=== PATIENT | male | born 1965 | race Caucasian/White ===

== ENCOUNTER 2025-02-01 14:57 | Emergency (ER) | payer SELFPAY ==
[2025-02-01 15:05] VITALS: BP 175/81; PULSE 65; RESP 20; TEMP 36.8; O2SAT 93
[2025-02-01 15:08] VITALS: BP 175/81; PULSE 65; RESP 20; TEMP 36.8; O2SAT 93
--- NOTE | 2025-02-01 15:15 | DI.CT_ITS ---
Exam(s) CT RENAL COLIC WO EXAM: CT RENAL COLIC WO CLINICAL HISTORY: left flank pain. TECHNIQUE: Imaging Protocol: Axial computed tomography images with coronal and sagittal reformatted images were created and reviewed CONTRAST MATERIAL: Intravenous: none Oral: None COMPARISON: No exams were available for comparison FINDINGS: VISUALIZED LUNG BASES: No infiltrates nor pleural effusions.. ABDOMEN: There is no ascites. There is anterior abdominal wall midline umbilical fat only containing hernia w hich measures 3.5 cm wide by 3.6 cm AP by 4.5 cm craniocaudal. The hernia sac does not contain bowel loops nor fluid. There is no bowel obstruction. There is mild subcutaneous fat streaking around th e otherwise unremarkable hernia sac. LIVER: There are no obvious significant focal hepatic lesions evident of this noninfused study. GALLBLADDER/BILIARY: No obvious gallbladder pathology. CBD is not dilated. PANCREAS: No evidence of pancreatic mass nor dilatation of the pancreatic duct. SPLEEN: Spleen is not enlarged. No obvious intrasplenic lesions. ADRENALS: There are no significant adrenal masses. KIDNEYS:Right kidney unremarkable. There is mild hydronephrosis and hydroureter of the left kidney w ith the left ureter dilated to 9 mm. The culprit calculus is in the left pelvic ureter at level wher e it crosses the iliac vessels, this calculus measuring 5-6 mm size and there is streaking around the ureter at this level. The ureter below this level on the left side is collapsed and there are no ra diopaque calculi seen in the nondistended urinary bladder. Prostate and seminal vesicles appear unre markable. Right ureter unremarkable. ABDOMINAL AORTA: Abdominal aorta is not enlarged. LYMPH NODES: There is no retroperitoneal nor paraaortic adenopathy. ABDOMINAL WALL: Umbilical hernia as described above. GI: There is no evidence of bowel obstruction, free air, nor abscess. PELVIS: LYMPH NODES: There is no intrapelvic nor inguinal adenopathy. GI: No evidence of appendicitis.No evidence of sigmoid diverticulitis. URINARY BLADDER: No calculi nor obvious masses evident REPRODUCTIVE: Prostate size normal. Seminal vesicles unremarkable. OSSEOUS: No significant osseous lesions. IMPRESSION: 1. There is an obstructing calculus in the left pelvic ureter which measures 5-6 mm. There is dilata tion left ureter above this level (diameter of 9 mm). 2. No remaining radiopaque calculi in the kidneys and there are no radiopaque calculi in the nondiste nded urinary bladder. 3. Anterior abdominal wall fat only containing umbilical hernia as described above. Report called by myself to ER physician 02/01/2025 at 4:20 p.m. RADIATION DOSE DELIVERED: 1,847.4mGy.cm Total DLP DATA REPOSITORY: All CT scans at this facility are submitted to the National Radiology Data Registry (NRDR) Dose Index Registry (DIR) with the [employer] (ACR). RADIATION OPTIMIZATION: All CT scans at this facility use at least one of these dose optimization te chniques: automated exposure control; mA and/or kV adjustment per patient size (includes targeted exa ms where dose is matched to clinical indication); or iterative reconstruction.
--- NOTE | 2025-02-01 15:18 | ED.GENADUL_ITS ---
Discharge Plan Disposition Patient Disposition: Home Condition: Stable Discharge Details Clinical Impression: Kidney stone Primary Care Provider: Gregorio Cruz ED Provider: Sung Morales Home Meds and New Rx's Prescriptions: New ondansetron 4 mg tablet,disintegrating 4 mg PO Q8H PRN (Reason: nausea and vomiting) Qty: 30 0RF tamsulosin 0.4 mg capsule 0.4 mg PO DAILY Qty: 13 0RF Rx Instructions: take one daily until you pass the kidney stone Continued amlodipine 10 MG tablet 10 mg PO DAILY Patient Comments: been out of meds for 2 months lisinopril 40 MG tablet 40 mg PO DAILY Patient Comments: been out of meds for 2 months Discharge Instructions Additional Instructions: You have a 6 mm kidney stone. You can take 1000 mg of acetaminophen and 600 mg of ibuprofen every 6 hours as needed. You should be contacted with an appointment for follow-up for urology. If you feel more ill, have persistent vomiting despite ondansetron or high fevers return to the emergency department for reevaluation Referrals: Gentry Brower MD [ [facility] STAFF PHYSICIAN] - [facility] General Mode of arrival: ambulatory . Date/Time Provider Initiated Documentation: 02/01/25 15:00 . Limitations to Documentation: no limitations . Information obtained by: patient . History of Present Illness 59 year old M presents to the emergency department with the chief complaint of left groin/flank pain, described as moderate, Patient started experiencing this hour(s) (4) and it has been constant. No relieving factors improve symptom(s), No exacerbating factors reported . Patient notes denies chest pain, fever/chills and shortness of breath. Patient did receive the following treatments prior to arrival, none Related Data Home Medications ?Medication ?Instructions ?Recorded ?Confirmed amlodipine 10 mg tablet 10 mg PO DAILY 01/19/16 02/01/25 lisinopril 40 mg tablet 40 mg PO DAILY 01/19/16 02/01/25 ondansetron 4 mg disintegrating 4 mg PO Q8H PRN nausea and 02/01/25 tablet vomiting #30 tabs tamsulosin 0.4 mg capsule 0.4 mg PO DAILY #13 caps 02/01/25 Previous Rx's ?Medication ?Instructions ?Recorded ondansetron 4 mg disintegrating 4 mg PO Q8H PRN nausea and 02/01/25 tablet vomiting #30 tabs tamsulosin 0.4 mg capsule 0.4 mg PO DAILY #13 caps 02/01/25 Allergies Allergy/AdvReac Type Severity Reaction Status Date / Time No Known Allergies Allergy Unverified 02/01/25 15:09 General Stated Complaint: FlankPain SAILAJA: 3 Review of Systems All systems reviewed & are unremarkable except as noted in HPI and below Constitutional Constitutional: Denies chills, Denies fever(s) and Denies weakness Cardiovascular Cardiovascular: Denies chest pain and Denies dyspnea Respiratory Respiratory: Denies cough and Denies dyspnea Gastrointestinal Gastrointestinal: Denies abdominal pain, Reports nausea and Denies vomiting Integumentary/Breasts Skin/Breast: Denies rash Neurologic Neurologic: Denies weakness Exam Const General: no acute distress Orientation: alert HENMT Head: normal to inspection Ears: external ears normal General nose exam: external nose normal Mouth: moist mucous membranes Eyes General: appearance normal, both eyes and all related structures Neck Neck: normal visual inspection Resp Effort & Inspection: normal respiratory effort and able to speak in complete sentences Cardio Jugular venous pressure: no JVD Rate: regular rate Heart Sounds: no murmurs GI Palpation: soft and nontender Back/Spine/Pelvis Back: No CVA tenderness Skin General skin exam: no rashes or lesions noted Neuro General: patient alert and patient oriented x3 Extrem General: normal to inspection Psych Mental Status: mental status grossly normal Course Vital Signs Vital signs: Vital Signs Temperature 36.8 C 02/01/25 15:05 Pulse 65 02/01/25 15:05 Respiratory Rate 20 02/01/25 15:05 Blood Pressure 175/81 H 02/01/25 15:05 Pulse Oximetry 93 02/01/25 15:05 Temperature 36.8 C 02/01/25 15:08 Pulse 65 02/01/25 15:08 Respiratory Rate 20 02/01/25 15:08 Blood Pressure 175/81 H 02/01/25 15:08 Blood Pressure Position Sitting 02/01/25 15:08 Pulse Oximetry 93 02/01/25 15:08 Oxygen Delivery Method Room Air 02/01/25 15:08 Oxygen Flow Rate 0 02/01/25 15:08 Medical Decision Making 59-year-old male with a history of hypertension and states he had a kidney stone over 10 years ago comes in with acute onset left lower back and left groin pain starting today. He denies any vomiting. Does have nausea. No fevers or chest pain. He is stable on arrival, he localizes the pain to the left lower back, also left groin without any abdominal tenderness or CVA tenderness. Given acute onset of pain I suspect a kidney stone, will check a CBC, CMP, lipase and CT renal colic and reassess. Patient stable states his pain is gone after Toradol. He does have a 5 to 6 mm stone in the mid ureter with some hydronephrosis. Has no signs of infection. Given he has no pain now and is well-appearing I feel he is stable for discharge and follow-up with urology as an outpatient. Return precautions given Differential Diagnosis Differential Diagnosis: Kidney stone, muscle spasm Lab Data Lab results reviewed: Yes I reviewed the patient's lab results. Quality:[facility] Health Related Social Needs: No Data to Display [facility] All Active Problems (Updated 02/01/25 @ 16:53 by Sung Morales MD) Kidney stone (Chronic) Social History Smoking/Tobacco Use Status: Never Smoking risk assessment performed?: Yes Drug use: Never PAWSS Have you Been Recently Intoxicated or Drunk Within the Last 30 days?: No Have you Ever Experienced Previous Episodes of Alcohol Withdrawal?: No Have you ever Experienced Withdrawal Seizures?: No Have you ever Experienced Delirium Tremens(DT)s?: No Have you ever undergone Alcohol Rehabilitation Treatment (i.e, inpt ot outpatient treatment programs)?: No Have you ever Experienced Blackouts?: No Have you ever Combined Alcohol with other Downers within the last 90 days?: No Have you ever Combined Alcohol with any other Substance of Abuse during the last 90 days?: No Positive Blood Alcohol level on Presentation? [PCS.BAL]: No Evidence of Increased Autonomic Activity (i.e. HR>120, tremor, sweating, agitation, nausea)?: No Result: 0
[2025-02-01 15:21] LABS: Bilirubin Negative (Negative); Blood Large (Negative); Clarity Clear (Clear); Glucose Negative (Negative); Ketones Negative (Negative); Leukocyte Esterase Negative (Negative); Nitrite Negative (Negative); Urobilinogen 0.2 mg/dL (Up to 0.2); pH 6.5 (5-8)
[2025-02-01] MEDS: Ketorolac 15 MG/ML VIAL IVP (15:30)
[2025-02-01] MEDS: Ondansetron 4 MG/2 ML VIAL IVP (15:30)
[2025-02-01] MEDS: Normal Saline Flush 10 ML SYR IVP (15:31)
[2025-02-01 15:32] LABS: Abs Immature Grans 0.05 10^3/uL (0.0-0.06); Absolute Basophil Count 0.03 10^3/uL (0.0-0.2); Absolute Eosinophil Count 0.19 10^3/uL (0.0-0.7); Absolute Lymphocyte Count 1.05 10^3/uL (1.2-3.4); Absolute Monocyte Count 0.84 10^3/uL (0.1-0.8); Absolute Neutrophil Count 7.84 10^3/uL (1.2-6.7); Basophils % 0.3 %; Eosinophils % 1.9 %; HCT 44.4 % (40.0-50.0); HGB 14.7 g/dL (13.5-17.5); Immature Grans % 0.5 %; Lymphocytes % 10.5 %; MCH 29.3 pg (27.0-33.0); MCHC 33.1 % (32.0-36.0); MCV 88 fL (80-95); Monocytes % 8.4 %; Neutrophils % 78.4 %; Platelet Count 240 10^3/uL (130-400); RBC 5.02 10^6/uL (4.36-5.78); RDW 13.1 % (11.8-14.1); RDW-SD 42.2 fL
[2025-02-01 15:32] LABS: Bacteria Negative HPF (Negative); C & S Indicated? No; Casts Negative LPF (Negative); Crystals Negative HPF (Negative); Epithelial Cells Rare HPF (Negative); Mucus Trace (Negative); RBC >50 HPF (0-2); WBC 0-2 HPF (0-5)
[2025-02-01 15:54] LABS: ALT 23 U/L (16-63); AST 11 U/L (15-37); Albumin 3.7 g/dL (3.4-5.0); Alkaline Phosphatase 102 U/L (46-116); Anion Gap 6.8 mmol/L (3-11); BUN 25 mg/dL (7-18); Bilirubin, Total 0.4 mg/dL (0.2-1.0); CO2 36.2 mmol/L (21.0-32.0); CREATININE 1.2 mg/dL (0.70-1.30); Calcium 9.8 mg/dL (8.5-10.1); Chloride 102 mmol/L (98-107); Glucose 159 mg/dL (74-106); Lipase 28 U/L (<78); Magnesium 1.8 mg/dL; Potassium 4.3 mmol/L (3.5-5.1); Sodium 145 mmol/L (136-145); Total Protein 7.6 g/dL (6.4-8.2)
[2025-02-01] MEDS: MORPHine IR 15 MG TAB, 4 TABS/BTL PO (17:10)
[2025-02-01] MEDS: Tamsulosin 0.4 MG CAPCR PO (17:10)
[2025-02-01] MEDS: Ondansetron O.D.T. 4 MG TABEF, 3 TABS/BTL PO (17:11)
== END 2025-02-01 17:23 | disposition home or self-care (01) ==
PROVIDERS: Emergency Provider Emergency Medicine; PCP General Practice
DX: N13.2 Hydronephrosis with renal and ureteral calculous obstruction (principal)
CPT/HCPCS: 80053; 83690; 96374; 96375; 99284; 74176; 81003; 81015; 83735; 85025; J1885; J2405

== ENCOUNTER 2025-02-16 16:40 | Emergency (ER) | payer SELFPAY ==
[2025-02-16 16:44] VITALS: BP 167/83; PULSE 76; RESP 20; TEMP 35.9; O2SAT 97
[2025-02-16 16:46] VITALS: BP 167/83; PULSE 76; RESP 20; TEMP 35.9; O2SAT 97
[2025-02-16] MEDS: Ketorolac 15 MG/ML VIAL 10 MG IVP (17:20)
[2025-02-16] MEDS: Ondansetron 4 MG/2 ML VIAL IVP (17:20)
[2025-02-16] MEDS: Normal Saline 1,000 ML 1000 ML IV (17:21)
[2025-02-16 17:23] LABS: Bilirubin Small (Negative); Blood Moderate (Negative); Clarity Clear (Clear); Glucose 100 mg/dL (Negative); Ketones Trace mg/dL (Negative); Leukocyte Esterase Negative (Negative); Nitrite Negative (Negative); Specific Gravity >= 1.030 (1.005-1.025); Urobilinogen 0.2 mg/dL (Up to 0.2); pH 5.5 (5-8)
[2025-02-16 17:34] LABS: Bacteria Negative HPF (Negative); C & S Indicated? No; Crystals Few Calcium Oxalate HPF (Negative); Epithelial Cells Negative HPF (Negative); Mucus Heavy (Negative); RBC >50 HPF (0-2); WBC 0-2 HPF (0-5)
[2025-02-16 17:39] LABS: Abs Immature Grans 0.03 10^3/uL (0.0-0.06); Absolute Basophil Count 0.02 10^3/uL (0.0-0.2); Absolute Eosinophil Count 0.18 10^3/uL (0.0-0.7); Absolute Lymphocyte Count 0.88 10^3/uL (1.2-3.4); Absolute Monocyte Count 0.81 10^3/uL (0.1-0.8); Absolute Neutrophil Count 6.06 10^3/uL (1.2-6.7); Basophils % 0.3 %; Eosinophils % 2.3 %; HCT 42.1 % (40.0-50.0); HGB 13.8 g/dL (13.5-17.5); Immature Grans % 0.4 %; MCH 29.1 pg (27.0-33.0); MCHC 32.8 % (32.0-36.0); MCV 89 fL (80-95); MPV 9.2 fL (8.0-11.0); Monocytes % 10.2 %; Neutrophils % 75.8 %; Platelet Count 207 10^3/uL (130-400); RBC 4.74 10^6/uL (4.36-5.78); RDW 12.8 % (11.8-14.1); RDW-SD 41.9 fL; WBC 7.98 10^3/uL (4.4-10.8)
--- NOTE | 2025-02-16 17:39 | DI.CT_ITS ---
Exam(s) CT RENAL COLIC WO EXAM: CT RENAL COLIC WO CLINICAL HISTORY: left flank pain. TECHNIQUE: Imaging Protocol: Axial computed tomography images with coronal and sagittal reformatted images were created and reviewed. COMPARISON: CT CT RENAL COLIC WO from 02/01/2025 FINDINGS: Lung Bases: No acute findings. Liver: Normal density. No measurable mass. Gallbladder and biliary tract: No radiodense calculus. No biliary ductal dilation. Pancreas: No abnormal calcifications or inflammatory process. Spleen: Normal size. Kidneys: Normal size, contour and axis.Previously noted calculus in the distal left ureter has progr essed distally in the ureter, now approximately 2 cm above the ureterovesical junction. Stable amoun t of hydronephrosis, moderate. No additional calculi. No suspicious masses seen. Adrenal glands: No mass is seen. Lymph nodes: Within normal limits. Vasculature: Abdominal aorta non-dilated. Bladder: Nearly empty. No stones. No gross wall thickening. No evidence of mass. Bowel: No obstruction. No bowel wall thickening. Normal quantity of stool. Appendix appears normal. Peritoneal cavity: No ascites.No free air. No focal collection. No mesenteric inflammatory response. Reproductive organs: Within normal limits. Bones: Unremarkable for age. Soft Tissues: Fat containing umbilical hernia. Bilateral fat containing inguinal hernias. IMPRESSION: Distal progression of the previously noted 6 millimeter left ureteral calculus, now approximately 2 c m above the ureterovesical junction. Stable moderate left hydronephrosis. Findings called to Dr. Hooker of the emergency department. RADIATION DOSE DELIVERED: Total DLP Total DLP DATA REPOSITORY: All CT scans at this facility are submitted to the National Radiology Data Registry (NRDR) Dose Index Registry (DIR) with the [employer] (ACR). RADIATION OPTIMIZATION: All CT scans at this facility use at least one of these dose optimization te chniques: automated exposure control; mA and/or kV adjustment per patient size (includes targeted exa ms where dose is matched to clinical indication); or iterative reconstruction.
[2025-02-16 17:43] LABS: Anion Gap 6.3 mmol/L (3-11); BUN 21 mg/dL (7-18); CO2 33.7 mmol/L (21.0-32.0); CREATININE 1.2 mg/dL (0.70-1.30); Calcium 9.2 mg/dL (8.5-10.1); Chloride 102 mmol/L (98-107); Glucose 190 mg/dL (74-106); Potassium 3.4 mmol/L (3.5-5.1); Sodium 142 mmol/L (136-145)
[2025-02-16] MEDS: Tamsulosin 0.4 MG CAPCR PO (18:38)
[2025-02-16 18:47] VITALS: BP 172/85; PULSE 72; RESP 16; TEMP 36.6; O2SAT 96
--- NOTE | 2025-02-16 19:42 | ED.GENADUL_ITS ---
Discharge Plan Disposition Patient Disposition: Home Condition: Stable Discharge Details Clinical Impression: Kidney stone Primary Care Provider: Gregorio Cruz ED Provider: Mick Hooker Home Meds and New Rx's Prescriptions: New tamsulosin [Flomax] 0.4 mg capsule 0.4 mg PO DAILY Qty: 30 0RF No Action amlodipine 10 MG tablet 10 mg PO DAILY Patient Comments: been out of meds for 2 months lisinopril 40 MG tablet 40 mg PO DAILY Patient Comments: been out of meds for 2 months tamsulosin 0.4 mg capsule 0.4 mg PO DAILY Qty: 13 0RF Rx Instructions: take one daily until you pass the kidney stone Discharge Instructions Additional Instructions: You have a 6 mm kidney stone on the left and it has moved forward slightly, but at this point is very unlikely to pass on its own. Continue to drink lots of water, take Flomax daily. Use the Zofran as needed for nausea and take your pain medication provided at your last visit as needed for severe pain. The urology clinic will contact you to schedule outpatient management of the stone. Return to the emergency department with fever or severe pain, decreased urination, are not tolerating liquids by HPI General Date/Time Provider Initiated Documentation: 02/16/25 16:42 . Limitations to Documentation: no limitations . Information obtained by: patient . HPI Narrative: 59-year-old gentleman with past medical history of hypertension presents for evaluation of left flank pain. He reports that the pain is similar to last week when he was diagnosed with a left renal stone. He states that after leaving the hospital his pain had been very well-controlled. He was not needing the pain medication at home and had not needed the nausea medication either. He reports that on set of pain a few hours ago which has been severe. He took some Tylenol without much relief. He reports 8 out of 10 pain located on the left side radiating down into his groin. He has noted some hesitancy with urination today. Denies any fever, nausea or vomiting Related Data Home Medications ?Medication ?Instructions ?Recorded ?Confirmed amlodipine 10 mg tablet 10 mg PO DAILY 01/19/16 02/16/25 lisinopril 40 mg tablet 40 mg PO DAILY 01/19/16 02/16/25 tamsulosin 0.4 mg capsule 0.4 mg PO DAILY #13 caps 02/01/25 02/16/25 tamsulosin 0.4 mg capsule (Flomax) 0.4 mg PO DAILY #30 caps 02/16/25 Previous Rx's ?Medication ?Instructions ?Recorded tamsulosin 0.4 mg capsule 0.4 mg PO DAILY #13 caps 02/01/25 tamsulosin 0.4 mg capsule (Flomax) 0.4 mg PO DAILY #30 caps 02/16/25 Allergies Allergy/AdvReac Type Severity Reaction Status Date / Time No Known Allergies Allergy Unverified 02/16/25 16:48 General Stated Complaint: Urinary SAILAJA: 3 Exam Narrative Exam Narrative: Review of Systems: All systems reviewed & are unremarkable except as noted in HPI and below Well-developed, no acute distress NCAT PERRL, normal conjunctiva RRR Unlabored respiratory effort Nondistended abdomen soft nontender no CVA tenderness Course Vital Signs Vital signs: Vital Signs Temperature 35.9 C L 02/16/25 16:44 Pulse 76 02/16/25 16:44 Respiratory Rate 20 02/16/25 16:44 Blood Pressure 167/83 H 02/16/25 16:44 Pulse Oximetry 97 02/16/25 16:44 Temperature 36.6 C 02/16/25 18:47 Pulse 72 02/16/25 18:47 Respiratory Rate 16 02/16/25 18:47 Blood Pressure 172/85 H 02/16/25 18:47 Blood Pressure Position Sitting 02/16/25 16:46 Pulse Oximetry 96 02/16/25 18:47 Oxygen Delivery Method Room Air 02/16/25 16:46 Oxygen Flow Rate 0 02/16/25 16:46 Pain Level 4 02/16/25 18:47 Lab/Test Results Lab/Test Results: Laboratory Tests Range/Units 02/16/25 02/16/25 16:59 17:18 WBC (4.4-10.8) 10^3/uL 7.98 RBC (4.36-5.78) 10^6/uL 4.74 Hgb (13.5-17.5) g/dL 13.8 Hct (40.0-50.0) % 42.1 MCV (80-95) fL 89 MCH (27.0-33.0) pg 29.1 MCHC (32.0-36.0) % 32.8 RDW (11.8-14.1) % 12.8 Plt Count (130-400) 10^3/uL 207 MPV (8.0-11.0) fL 9.2 Immature Gran % % 0.4 Neutrophils % % 75.8 Lymphocytes % % 11.0 Monocytes % % 10.2 Eosinophils % % 2.3 Basophils % % 0.3 Nucleated RBC % (0.0-0.3) % 0.0 Absolute Neutrophils (1.2-6.7) 10^3/uL 6.06 Absolute Lymphocytes (1.2-3.4) 10^3/uL 0.88 L Absolute Monocytes (0.1-0.8) 10^3/uL 0.81 H Absolute Eosinophils (0.0-0.7) 10^3/uL 0.18 Absolute Basophils (0.0-0.2) 10^3/uL 0.02 Sodium (136-145) mmol/L 142 Potassium (3.5-5.1) mmol/L 3.4 L Chloride (98-107) mmol/L 102 Carbon Dioxide (21.0-32.0) mmol/L 33.7 H Anion Gap (3-11) mmol/L 6.3 BUN (7-18) mg/dL 21 H Creatinine (0.70-1.30) mg/dL 1.2 Est GFR (CKD-EPI 2020) (mL/min/1.73m2) 70.10 Glucose (74-106) mg/dL 190 H Calcium (8.5-10.1) mg/dL 9.2 Urine Color (Yellow) Yellow Urine Clarity (Clear) Clear Urine pH (5-8) 5.5 Ur Specific [place] (1.005-1.025) >= 1.030 H Urine Protein (Neg-Trace) mg/dL 30 H Urine Ketones (Negative) mg/dL Trace H Urine Blood (Negative) Moderate H Urine Nitrite (Negative) Negative Urine Bilirubin (Negative) Small H Urine Urobilinogen (Up to 0.2) mg/dL 0.2 Ur Leukocyte Esterase (Negative) Negative Urine RBC (0-2) HPF >50 H Urine WBC (0-5) HPF 0-2 Ur Epithelial Cells (Negative) HPF Negative Urine Crystals (Negative) HPF Few Calcium Oxalate Urine Bacteria (Negative) HPF Negative Urine Mucus (Negative) Heavy Ur Culture Indicated? No Urine Glucose (Negative) mg/dL 100 H Medical Decision Making Emergent evaluation of left flank pain. Patient had recent diagnosis of left renal stone. Symptoms have been well-controlled and patient has been drinking water at home, but the return of symptoms today is concerning for possible new stone versus obstruction, infection. Given significance of pain, an IV was placed he was given IV fluids, Toradol and Zofran. This completely resolved his pain symptoms. Renal function has not changed. Urinalysis does not reveal infection. A CT scan was obtained, discussed with the radiologist and the 6 mm stone is noted to have moved slightly, but still not reached the UVJ yet. Given the failure of significant progression, I reached out to urology and discussed the case with Dr. Brower. At this time given that the patient is not infected has normal renal function and pain is well-controlled, he is stable for discharge home and the patient will be closely followed up in urology clinic for outpatient management of the stone. Quality:[facility] Health Related Social Needs: No Data to Display PFSH All Active Problems (Updated 02/16/25 @ 18:08 by Mick Hooker MD) Kidney stone (Chronic) Social History Smoking/Tobacco Use Status: Never Smoking risk assessment performed?: Yes Drug use: Rarely Substance use type: marijuana PAWSS Have you Been Recently Intoxicated or Drunk Within the Last 30 days?: No Have you Ever Experienced Previous Episodes of Alcohol Withdrawal?: No Have you ever Experienced Withdrawal Seizures?: No Have you ever Experienced Delirium Tremens(DT)s?: No Have you ever undergone Alcohol Rehabilitation Treatment (i.e, inpt ot outpatient treatment programs)?: No Have you ever Experienced Blackouts?: No Have you ever Combined Alcohol with other Downers within the last 90 days?: No Have you ever Combined Alcohol with any other Substance of Abuse during the last 90 days?: No Positive Blood Alcohol level on Presentation? [PCS.BAL]: No Evidence of Increased Autonomic Activity (i.e. HR>120, tremor, sweating, agitation, nausea)?: No Result: 0
== END 2025-02-16 18:48 | disposition home or self-care (01) ==
PROVIDERS: Emergency Provider Emergency Medicine; PCP General Practice
DX: R10.2 Pelvic and perineal pain (principal); N13.2 Hydronephrosis with renal and ureteral calculous obstruction; I10 Essential (primary) hypertension; E78.5 Hyperlipidemia, unspecified
CPT/HCPCS: 80048; 96361; 96374; 96375; 99284; 74176; 81003; 81015; 85025; J1885; J2405

== ENCOUNTER 2025-02-17 07:09 | Emergency (ER) | payer SELFPAY ==
[2025-02-17 07:12] VITALS: BP 168/94; PULSE 69; RESP 12; TEMP 36.3; O2SAT 93
--- NOTE | 2025-02-17 07:17 | ED.GENADUL_ITS ---
Discharge Plan Disposition Patient Disposition: Home Discharge Details Clinical Impression: Ureterolithiasis, Hydronephrosis, left Primary Care Provider: Gregorio Cruz ED Provider: Milan Hanson Home Meds and New Rx's Prescriptions: New Ondansetron Odt, 3 Tabs/Btl [Zofran Odt, 3 Tabs/Btl] 4 mg PO DISPENSE Qty: 1 0RF Continued tamsulosin 0.4 mg capsule 0.4 mg PO DAILY Qty: 13 0RF Rx Instructions: take one daily until you pass the kidney stone hydrochlorothiazide 25 mg tablet 25 mg PO DAILY metformin 500 mg tablet extended release 24 hr 500 mg PO DAILY metoprolol succinate 100 mg tablet extended release 24 hr 100 mg PO DAILY atorvastatin 20 mg tablet 20 mg PO DAILY Discharge Instructions Instructions: Kidney Stone, Adult ED Additional Instructions: You are seen in the emergency department for your flank pain. Please ensure that you take your blood pressure medicines as directed. Please return to the emergency department if you develop nausea or vomiting that does not stop. Please take these medicines for nausea. You have been set up with an outpatient urological procedure in 2 days. For your pain please take medications as follows: 1. Take acetaminophen (Tylenol), 1,000 mg (two 500 mg tabs) every 6 hours For additional pain please take the morphine tablets you have previously received. Discharge Data Discharge Date/Time-TO BE ENTERED AT DEPARTURE: 02/17/25 10:15 HPI General Date/Time Provider Initiated Documentation: 02/17/25 07:15 . HPI Narrative: MDM This is an overall well-appearing afebrile and not tachycardic 59-year-old male with persistent left flank pain and a 6 mm known and slow-moving ureterolithiasis noted last night to be 2 cm above the UVJ for which patient will undergo repeat CT scan. No pain out of proportion to suggest necrotizing soft tissue infection. No rash to abdomen to suggest zoster. Not hypotensive nor an extremis making my suspicion low for ruptured AAA. No right lower quadrant tenderness to suggest appendicitis. No epigastric pain to suggest pancreatitis. Patient is having some dysuria so we will obtain urinalysis to assess for UTI. I considered referred pain however patient is having no cough to suggest pneumonia. No shortness of breath to suggest PE. No chest pain to suggest ACS. No falls to suggest increased risk for Tillman Katalina lesion. Will provide ondansetron ketorolac acetaminophen IV fluids and obtain basic labs. 9:25 AM Patient's pain well-controlled. He has taken his home antihypertensives this morning but has not taken his tamsulosin. I spoke with Paula Peters from urology who come to assess the patient and arrange for outpatient stent later this week in 2 days. I have also asked health coordinator Sara to have the patient established with a T doc for management of blood pressure. I ordered the patient additional oral morphine for discharge as he reportedly only 1 tablet left. I also ordered him for ondansetron. Laboratory Tests Range/Units 02/17/25 02/17/25 07:55 09:07 WBC (4.4-10.8) 10^3/uL 10.59 RBC (4.36-5.78) 10^6/uL 4.73 Hgb (13.5-17.5) g/dL 14.0 Hct (40.0-50.0) % 42.8 MCV (80-95) fL 91 MCH (27.0-33.0) pg 29.6 MCHC (32.0-36.0) % 32.7 RDW (11.8-14.1) % 12.9 Plt Count (130-400) 10^3/uL 204 MPV (8.0-11.0) fL 9.0 Immature Gran % % 0.6 Neutrophils % % 86.6 Lymphocytes % % 4.0 Monocytes % % 7.7 Eosinophils % % 0.8 Basophils % % 0.3 Nucleated RBC % (0.0-0.3) % 0.0 Absolute Neutrophils (1.2-6.7) 10^3/uL 9.17 H Absolute Lymphocytes (1.2-3.4) 10^3/uL 0.42 L Absolute Monocytes (0.1-0.8) 10^3/uL 0.82 H Absolute Eosinophils (0.0-0.7) 10^3/uL 0.09 Absolute Basophils (0.0-0.2) 10^3/uL 0.03 Sodium (136-145) mmol/L 144 Potassium (3.5-5.1) mmol/L 4.1 Chloride (98-107) mmol/L 105 Carbon Dioxide (21.0-32.0) mmol/L 33.7 H Anion Gap (3-11) mmol/L 5.3 BUN (7-18) mg/dL 23 H Creatinine (0.70-1.30) mg/dL 1.4 H Est GFR (CKD-EPI 2020) (mL/min/1.73m2) 58.26 Glucose (74-106) mg/dL 230 H Calcium (8.5-10.1) mg/dL 9.0 Urine Color (Yellow) Yellow Urine Clarity (Clear) Clear Urine pH (5-8) 5.5 Ur Specific [place] (1.005-1.025) >= 1.030 H Urine Protein (Neg-Trace) mg/dL Negative Urine Ketones (Negative) mg/dL Negative Urine Blood (Negative) Trace-intact H Urine Nitrite (Negative) Negative Urine Bilirubin (Negative) Negative Urine Urobilinogen (Up to 0.2) mg/dL 0.2 Ur Leukocyte Esterase (Negative) Negative Urine RBC (0-2) HPF 3-5 H Urine WBC (0-5) HPF 5-10 Ur Epithelial Cells (Negative) HPF Rare Urine Crystals (Negative) HPF Negative Urine Bacteria (Negative) HPF Rare Urine Casts (Negative) LPF 0-2 Hyaline Urine Mucus (Negative) Moderate Ur Culture Indicated? No Urine Glucose (Negative) mg/dL 250 H HPI This is a 59-year-old male with history of elevated BMI hypertension hyperlipidemia arrived emergency department via private vehicle in setting of left flank pain. Patient has a history of a known ureterolithiasis which was diagnosed on CT just over 2 weeks ago. He has had continued pain. He was in the emergency department last night and his 6 mm stone was too centimeters proximal to his left UVJ. He has been nauseous and has some occasional dysuria. Has never had a UTI. He denies fevers and vomiting. His last dose of oral morphine was at 5:30 AM. Last dose of ibuprofen was at 8 PM. He has not taken any acetaminophen. He said no past surgical history to the abdomen. He has never required urological intervention and denies history of any stents. He has never had a UTI. No shortness of breath cough nor chest pain. Exam General: Well-appearing in no acute distress speaking in complete sentences. Head: Normocephalic, atraumatic. Eye: Clear lungs bilaterally. Extraocular eye movements intact. No conjunctival injection. No scleral icterus. Ear, nose, mouth, throat: Grossly normal inspection. Normal voice, handling secretions normally. Neck: Trachea midline. Cardiovascular: Well-perfused distal extremities. Respiratory: Nonlabored respiration. Clear lungs bilaterally. Gastrointestinal: Nondistended abdomen. Soft. Nontender. Left-sided flank tenderness. No right lower quadrant tenderness. No rebound. No guarding. Musculoskeletal: No edema. Moving all 4 extremities spontaneously. Skin: Normal for age and race, grossly normal temperature and turgor. No acute rash. Neurologic: Alert and appropriate, no apparent acute deficits. Psychiatric: Mood and manner are appropriate. Grooming and personal hygiene are appropriate. Related Data Home Medications ?Medication ?Instructions ?Recorded ?Confirmed tamsulosin 0.4 mg capsule 0.4 mg PO DAILY #13 caps 02/01/25 02/17/25 Ondansetron ODT, 3 tabs/btl 4 mg PO DISPENSE #1 unit 02/17/25 02/17/25 [Zofran ODT, 3 tabs/btl] atorvastatin 20 mg tablet 20 mg PO DAILY 02/17/25 02/17/25 hydrochlorothiazide 25 mg tablet 25 mg PO DAILY 02/17/25 02/17/25 metformin 500 mg tablet,extended 500 mg PO DAILY 02/17/25 02/17/25 release 24 hr metoprolol succinate 100 mg 100 mg PO DAILY 02/17/25 02/17/25 tablet,extended release 24 hr Previous Rx's ?Medication ?Instructions ?Recorded tamsulosin 0.4 mg capsule 0.4 mg PO DAILY #13 caps 02/01/25 Ondansetron ODT, 3 tabs/btl 4 mg PO DISPENSE #1 unit 02/17/25 [Zofran ODT, 3 tabs/btl] Allergies Allergy/AdvReac Type Severity Reaction Status Date / Time No Known Allergies Allergy Verified 02/17/25 12:31 General Stated Complaint: Recheck SAILAJA: 3 Course Vital Signs Vital signs: Vital Signs Temperature 36.3 C L 02/17/25 07:12 Pulse 69 02/17/25 07:12 Respiratory Rate 12 02/17/25 07:12 Blood Pressure 168/94 H 02/17/25 07:12 Pulse Oximetry 93 02/17/25 07:12 Temperature 36.3 C L 02/17/25 07:12 Temperature Source Oral 02/17/25 07:12 Pulse 69 02/17/25 07:12 Respiratory Rate 12 02/17/25 07:12 Blood Pressure 168/94 H 02/17/25 07:12 Blood Pressure Position Sitting 02/17/25 07:12 Pulse Oximetry 93 02/17/25 07:12 Oxygen Delivery Method Room Air 02/17/25 07:12 Oxygen Flow Rate 0 02/17/25 07:12 Pain Level 10 02/17/25 07:12 Medical Decision Making Quality:SDOH Health Related Social Needs: No Data to Display PFSH All Active Problems (Updated 02/17/25 @ 12:29 by Nino Bustillos) Hydronephrosis, left (Acute) Ureterolithiasis (Acute) Kidney stone (Chronic) Medical History (Updated 02/17/25 @ 12:29 by Nino Bustillos) HTN (hypertension) Prediabetes High cholesterol Surgical History (Updated 02/17/25 @ 12:30 by Nino Bustillos) Hx of colonoscopy Hx of hand surgery Social History Smoking/Tobacco Use Status: Never Smoking risk assessment performed?: Yes Alcohol Intake: current Alcohol Intake frequency: holidays/special occasions only Drug use: Rarely Substance use type: marijuana Housing: house Do you feel safe at home: Yes Do you feel safe in your relationship?: Yes
--- NOTE | 2025-02-17 07:49 | DI.CT_ITS ---
Exam(s) CT ABDOMEN PELVIS WO EXAM: CT ABDOMEN PELVIS WO CLINICAL HISTORY: Left flank pain. TECHNIQUE: Imaging Protocol: Axial computed tomography images with coronal and sagittal reformatted images were created and reviewed. Oral: / no COMPARISON: CT CT RENAL COLIC WO from 02/16/2025 FINDINGS: Lung Bases: No acute findings. Liver: Normal density. No suspicious mass. Gallbladder and biliary tract: No radiodense calculus or biliary dilation. Pancreas: Normal density. No abnormal calcifications or inflammatory process. Spleen: Normal. Kidneys: Normal size, contour and axis. Stable position of previously noted 6 millimeter stone at th e distal left ureter. Stable moderate left hydronephrosis. Mildly increased stranding around the le ft kidney compared to prior. No suspicious masses seen. Adrenal glands: No masses seen. Lymph nodes: Within normal limits. Vasculature: Abdominal aorta non-dilated. Soft tissues: Fat containing inguinal hernias and umbilical hernia again noted. Bladder: Nearly empty. No mass or calculi. Bowel: No obstruction or bowel wall thickening. Appendix is normal. Normal quantity of stool. Peritoneal cavity: No ascites. No focal collection. No mesenteric inflammatory response. Reproductive organs: Unremarkable. Bones: Unremarkable for age. IMPRESSION: Stable position of a 6 millimeter stone above the level of the ureterovesical junction. Stable moder ate hydronephrosis. Mildly increased amount of stranding around the left kidney. RADIATION DOSE DELIVERED: 1,125.61mGy.cm Total DLP DATA REPOSITORY: All CT scans at this facility are submitted to the National Radiology Data Registry (NRDR) Dose Index Registry (DIR) with the [employer] (A[employer]). RADIATION OPTIMIZATION: All CT scans at this facility use at least one of these dose optimization te chniques: automated exposure control; mA and/or kV adjustment per patient size (includes targeted exa ms where dose is matched to clinical indication); or iterative reconstruction.
[2025-02-17] MEDS: Normal Saline 1,000 ML 1000 ML IV (07:56)
[2025-02-17] MEDS: Ketorolac 15 MG/ML VIAL IVP (07:56)
[2025-02-17] MEDS: Acetaminophen 500 MG TAB 1000 MG PO (07:56)
[2025-02-17] MEDS: Ondansetron O.D.T. 4 MG TABEF PO (07:57)
[2025-02-17 08:05] LABS: Abs Immature Grans 0.06 10^3/uL (0.0-0.06); Absolute Basophil Count 0.03 10^3/uL (0.0-0.2); Absolute Eosinophil Count 0.09 10^3/uL (0.0-0.7); Absolute Lymphocyte Count 0.42 10^3/uL (1.2-3.4); Absolute Monocyte Count 0.82 10^3/uL (0.1-0.8); Absolute Neutrophil Count 9.17 10^3/uL (1.2-6.7); Basophils % 0.3 %; Eosinophils % 0.8 %; HCT 42.8 % (40.0-50.0); Immature Grans % 0.6 %; MCH 29.6 pg (27.0-33.0); MCHC 32.7 % (32.0-36.0); MCV 91 fL (80-95); Monocytes % 7.7 %; Neutrophils % 86.6 %; Platelet Count 204 10^3/uL (130-400); RBC 4.73 10^6/uL (4.36-5.78); RDW 12.9 % (11.8-14.1); RDW-SD 42.7 fL; WBC 10.59 10^3/uL (4.4-10.8)
[2025-02-17 08:51] LABS: Anion Gap 5.3 mmol/L (3-11); BUN 23 mg/dL (7-18); CO2 33.7 mmol/L (21.0-32.0); CREATININE 1.4 mg/dL (0.70-1.30); Chloride 105 mmol/L (98-107); Estimated GFR 58.26 (mL/min/1.73m2); Glucose 230 mg/dL (74-106); Potassium 4.1 mmol/L (3.5-5.1); Sodium 144 mmol/L (136-145)
[2025-02-17] MEDS: Ondansetron 4 MG/2 ML VIAL IVP (09:01)
[2025-02-17 09:13] LABS: Bilirubin Negative (Negative); Blood Trace-intact (Negative); Clarity Clear (Clear); Glucose 250 mg/dL (Negative); Ketones Negative (Negative); Leukocyte Esterase Negative (Negative); Nitrite Negative (Negative); Specific Gravity >= 1.030 (1.005-1.025); Urobilinogen 0.2 mg/dL (Up to 0.2); pH 5.5 (5-8)
[2025-02-17 09:23] LABS: Bacteria Rare HPF (Negative); C & S Indicated? No; Casts 0-2 Hyaline LPF (Negative); Crystals Negative HPF (Negative); Epithelial Cells Rare HPF (Negative); Mucus Moderate (Negative)
[2025-02-17] MEDS: Tamsulosin 0.4 MG CAPCR PO (09:48)
[2025-02-17 10:00] VITALS: BP 142/77; PULSE 64; RESP 16; O2SAT 92
[2025-02-17] MEDS: Ondansetron O.D.T. 4 MG TABEF, 3 TABS/BTL PO (10:07)
[2025-02-17] MEDS: MORPHine IR 15 MG TAB, 4 TABS/BTL PO (10:13)
--- NOTE | 2025-02-17 12:19 | W.UROLOGYCON ---
Date of service: 02/17/25 Time of Service: 09:30 Assessment and Plan Assessment and plan (1) Ureterolithiasis: Status: Acute Assessment and plan: Due to his stone not progressing further down the ureter and continuing with minimal pain control resulting in significant continued pain as well as multiple ER visits, I would recommend that he needs surgical intervention emergently. We discussed cysto, left regrograde pyleogram, left uteroscopy, stone manipulation and ? stent. He expressed understanding and agreement to move to surgical intervention later this week. Preop orders completed and given to nursing. Of note, BP has been elevated at times that appears to be correlated with pain. If his blood pressure is still out of control at time of surgical intervention, we noted that placing a stent and coming back at a later time for stone manipulation might be the decision that day. He expressed understanding. Message was sent to [facility] to help get him established with PCP. ? Lastly, he states he has no insurance. This surgical intervention is needed this week to prevent urologic damaged. He has already had this calculi concern for 3 weeks if not more. My management team was made aware of his need for surgery and being uninsured. A total of 23 minutes was spent reviewing this patient's EMR, [id number] time, coordinating care and documenting. ? History of Present Illness Narrative: Froy is a 59 y/o male with left ureteral calculi almost to the UVJ. He has now bounced back into the ER for the 3rd time r/t this concern. He finds pain management to be of concern. No f/c. +N/V. LUTS stable. Consults Consult date: 02/17/25 Requesting physician: Milan Hanson Review of Systems Narrative: See HPI PFSH All Active Problems (Updated 02/17/25 @ 12:29 by Nino Bustillos) Hydronephrosis, left (Acute) Ureterolithiasis (Acute) Kidney stone (Chronic) Medical History (Updated 02/17/25 @ 12:29 by Nino Bustillos) HTN (hypertension) Prediabetes High cholesterol Surgical History (Updated 02/17/25 @ 12:30 by Nino Bustillos) Hx of colonoscopy Hx of hand surgery Social History Smoking/Tobacco Use Status: Never Smoking risk assessment performed?: Yes Alcohol Intake: current Alcohol Intake frequency: holidays/special occasions only Drug use: Rarely Substance use type: marijuana Housing: house Do you feel safe at home: Yes Do you feel safe in your relationship?: Yes Exam Narrative Exam Narrative: Well-developed, no acute distress PERRL, normal conjunctiva Unlabored respiratory effort Nondistended abdomen soft nontender No CVA tenderness Results Last Vital Signs Temp 97.4 F L 02/17/25 07:12 Pulse 64 02/17/25 10:00 Resp 16 02/17/25 10:00 BP 142/77 H 02/17/25 10:00 Pulse Ox 92 02/17/25 10:00 Labs 02/17/25 07:55 02/17/25 07:55 Labs: Laboratory Results - last 24 hr 02/17/25 02/17/25 07:55 09:07 WBC 10.59 RBC 4.73 Hgb 14.0 Hct 42.8 MCV 91 MCH 29.6 MCHC 32.7 RDW 12.9 Plt Count 204 MPV 9.0 Immature Gran % 0.6 Neutrophils % 86.6 Lymphocytes % 4.0 Monocytes % 7.7 Eosinophils % 0.8 Basophils % 0.3 Nucleated RBC % 0.0 Absolute Neutrophils 9.17 H Absolute Lymphocytes 0.42 L Absolute Monocytes 0.82 H Absolute Eosinophils 0.09 Absolute Basophils 0.03 Sodium 144 Potassium 4.1 Chloride 105 Carbon Dioxide 33.7 H Anion Gap 5.3 BUN 23 H Creatinine 1.4 H Est GFR (CKD-EPI 2020) 58.26 Glucose 230 H Calcium 9.0 Urine Color Yellow Urine Clarity Clear Urine pH 5.5 Ur Specific [place] >= 1.030 H Urine Protein Negative Urine Ketones Negative Urine Blood Trace-intact H Urine Nitrite Negative Urine Bilirubin Negative Urine Urobilinogen 0.2 Ur Leukocyte Esterase Negative Urine RBC 3-5 H Urine WBC 5-10 Ur Epithelial Cells Rare Urine Crystals Negative Urine Bacteria Rare Urine Casts 0-2 Hyaline Urine Mucus Moderate Ur Culture Indicated? No Urine Glucose 250 H
== END 2025-02-17 10:15 | disposition home or self-care (01) ==
PROVIDERS: Emergency Provider Emergency Medicine; PCP General Practice
DX: N13.2 Hydronephrosis with renal and ureteral calculous obstruction (principal); I10 Essential (primary) hypertension; E78.5 Hyperlipidemia, unspecified; E11.9 Type 2 diabetes mellitus without complications
CPT/HCPCS: 36415; 80048; 96361; 96374; 96375; 99284; 74176; 81003; 81015; 85025; J1885; J2405

== ENCOUNTER 2025-02-19 06:03 | Day surgery (SDC) | payer SELFPAY ==
[2025-02-19] VITALS (23 sets, daily range): BP systolic 90–144; BP diastolic 46–93; PULSE 47–59; RESP 0–19; TEMP 36.5–36.7; O2SAT 80–98; BMI 48.6
[2025-02-19] MEDS: Lactated Ringers 1,000 ML 80 ML IV (06:44)
--- NOTE | 2025-02-19 06:52 | W.PM.HP.N ---
Date of service: 02/19/25 Time of Service: 06:52 Assessment and Plan Assessment and plan (1) Ureterolithiasis: Status: Acute Assessment and plan: His stone has not progressed with conservative management. We will move ahead with surgical treatment. We have planned for ureteroscopy and possible holmium laser lithotripsy of his left distal ureteral stone. History of Present Illness History of Present Illness Chief Complaint: Left ureteral stone Narrative: This is a 59-year-old gentleman who initially presented to the emergency department with symptoms of renal colic. He was found to have a left distal ureteral stone. He was treated conservatively, but he has required multiple return visits to the emergency department for pain control, nausea and vomiting. He has not had fevers or chills. He has not required an emergent procedure but because of his persistent pain, it is felt that his case should be done in a timely manner. He presents for ureteroscopy and possible holmium laser lithotripsy of his stone. He does have a history of a right-sided stone that have passed spontaneously about 10 to 20 years ago. We are not aware of his stone composition. Review of Systems Narrative: No fevers or chills No vision change or dysphasia No diabetes or thyroid No shortness of breath, cough or hemoptysis No chest pain or palpitations No hepatitis, ulcers, jaundice No seizures, strokes or peripheral neuropathy No bleeding disorders or anemia No gout PFSH All Active Problems Hydronephrosis, left (Acute) Ureterolithiasis (Acute) Kidney stone (Chronic) Medical History HTN (hypertension) Prediabetes High cholesterol Surgical History (Updated 02/19/25 @ 07:19 by Gentry Brower MD) S/P tendon repair Hx of colonoscopy Hx of hand surgery Social History Smoking/Tobacco Use Status: Never Smoking risk assessment performed?: Yes Alcohol Intake: current Alcohol Intake frequency: holidays/special occasions only Drug use: Rarely Substance use type: marijuana Details: denies use for couple of months. Housing: house Do you feel safe at home: Yes Do you feel safe in your relationship?: Yes Meds Allergies and Home Medications Allergies Allergy/AdvReac Type Severity Reaction Status Date / Time No Known Allergies Allergy Verified 02/19/25 06:32 Home Medications ?Medication ?Instructions ?Recorded ?Confirmed ?Type tamsulosin 0.4 mg capsule 0.4 mg PO DAILY #13 caps 02/01/25 02/19/25 Rx Ondansetron ODT, 3 tabs/btl 4 mg PO DISPENSE #1 unit 02/17/25 02/19/25 Rx [Zofran ODT, 3 tabs/btl] atorvastatin 20 mg tablet 20 mg PO DAILY 02/17/25 02/19/25 History hydrochlorothiazide 25 mg tablet 25 mg PO DAILY 02/17/25 02/19/25 History metformin 500 mg tablet,extended 500 mg PO DAILY 02/17/25 02/19/25 History release 24 hr metoprolol succinate 100 mg 100 mg PO DAILY 02/17/25 02/19/25 History tablet,extended release 24 hr Exam Const General: cooperative Neck Neck: supple Resp Effort & Inspection: normal respiratory effort Auscultation: clear to auscultation bilaterally Cardio Rate: regular rate Rhythm: regular rhythm GI Palpation: soft and no masses Neuro General: patient alert, patient awake and patient oriented x3 Results Last Vital Signs Temp 36.7 C 02/19/25 06:22 Pulse 59 L 02/19/25 06:22 Resp 16 02/19/25 06:22 BP 144/93 H 02/19/25 06:22 Pulse Ox 93 02/19/25 06:22 Time Spent Time spent with Patient: <40 minutes Time was spent: other
--- NOTE | 2025-02-19 07:02 | ANES.PREOP_ITS ---
General Info Date of Service Date Performed: 02/19/25 Height: 5 ft 5 in Weight: 132.7 kg Body Mass Index (BMI): 48.6 Surgical Procedure: Operation Date: 02/19/25 07:40 Proposed Procedure Side Surgeon p Cystoscopy/Retrograde/Ureteroscopy/ Stone Mamipulation/ ? Stent Right Gentry Brower MD Meds Allergies and Home Medications Allergies Allergy/AdvReac Type Severity Reaction Status Date / Time No Known Allergies Allergy Verified 02/19/25 06:32 Home Medication ?Medication ?Instructions ?Recorded tamsulosin 0.4 mg capsule 0.4 mg PO DAILY #13 caps 02/01/25 Ondansetron ODT, 3 tabs/btl 4 mg PO DISPENSE #1 unit 02/17/25 [Zofran ODT, 3 tabs/btl] atorvastatin 20 mg tablet 20 mg PO DAILY 02/17/25 hydrochlorothiazide 25 mg tablet 25 mg PO DAILY 02/17/25 metformin 500 mg tablet,extended 500 mg PO DAILY 02/17/25 release 24 hr metoprolol succinate 100 mg 100 mg PO DAILY 02/17/25 tablet,extended release 24 hr Current Visit Medications: Current Medications Generic Name Dose Route Start Last Admin Trade Name Freq PRN Reason Stop Dose Admin Ringer's Solution 1,000 mls @ 80 mls/hr 02/19/25 06:00 02/19/25 06:44 IV 02/19/25 23:59 80 mls/hr INFUSION CARLEE Administration Cefazolin Sodium/Dextrose 2 gm in 50 mls @ 100 mls/hr 02/19/25 06:00 Ancef Duplex IVPB 02/19/25 23:59 PREOP CARLEE IV Miscellaneous Supplies 1 each 02/19/25 06:00 Iv Access IV 02/19/25 23:59 DIRECTED CARLEE Sodium Chloride 0 ml 02/19/25 06:00 Normal Saline Flush 10 Ml Syr IV 02/19/25 23:59 PRN PRN Sodium Chloride 0 ml 02/19/25 06:00 Normal Saline 10 Ml Vial IJ 02/19/25 23:59 DIRECTED PRN Sterile Water 0 ml 02/19/25 06:00 Water,Injection,Sterile 10 Ml Vial IJ 02/19/25 23:59 DIRECTED PRN PFSH Active Problems Active Problems: Problem Status Onset Code Hydronephrosis, left Acute N13.30 Ureterolithiasis Acute N20.1 Kidney stone Chronic N20.0 Medical History Medical History HTN (hypertension) Prediabetes High cholesterol Surgical History Surgical History Hx of colonoscopy Hx of hand surgery Tobacco Smoking/Tobacco Use Status: Never Alcohol Alcohol Intake: current Alcohol intake frequency: holidays/special occasions only Substance Use Substance use: Rarely Substance use type: marijuana Details: denies use for couple of months. Vital Signs and Lab Results Vital Signs Most Recent Vital Signs in EMR: Most Recent Vital Signs Temp Pulse Resp BP Pulse Ox 36.7 C 59 L 16 144/93 H 93 02/19/25 06:22 02/19/25 06:22 02/19/25 06:22 02/19/25 06:22 02/19/25 06:22 Lab Results Blood Type / Crossmatch: No Data to Display Complete Blood Count: White Blood Count 10.59 10^3/uL (4.4-10.8) 02/17/25 07:55 Red Blood Count 4.73 10^6/uL (4.36-5.78) 02/17/25 07:55 Hemoglobin 14.0 g/dL (13.5-17.5) 02/17/25 07:55 Hematocrit 42.8 % (40.0-50.0) 02/17/25 07:55 Platelet Count 204 10^3/uL (130-400) 02/17/25 07:55 Complete Metabolic Panel: Sodium 144 mmol/L (136-145) 02/17/25 07:55 Potassium 4.1 mmol/L (3.5-5.1) 02/17/25 07:55 Chloride 105 mmol/L (98-107) 02/17/25 07:55 Carbon Dioxide 33.7 mmol/L (21.0-32.0) H 02/17/25 07:55 BUN 23 mg/dL (7-18) H 02/17/25 07:55 Creatinine 1.4 mg/dL (0.70-1.30) H 02/17/25 07:55 Est GFR (CKD-EPI 2020) 58.26 (mL/min/1.73m2) 02/17/25 07:55 Magnesium 1.8 mg/dL 03/30/25 15:26 Calcium 9.0 mg/dL (8.5-10.1) 02/17/25 07:55 Albumin 3.7 g/dL (3.4-5.0) 02/01/25 15:26 Glucose 230 mg/dL (74-106) H 02/17/25 07:55 Liver Function Panel: Alanine Aminotransferase (ALT/SGPT) 23 U/L (16-63) 02/01/25 15: 26 Aspartate Amino Transf (AST/SGOT) 11 U/L (15-37) L 02/01/25 15: 26 Coagulation Panel: No Data to Display Cardiac Panel: No Data to Display Arterial Blood Gas: No Data to Display Venous Blood Gas: No Data to Display Pancreas Panel: Lipase 28 U/L (<78) 02/01/25 15:26 Thyroid Panel: No Data to Display Infectious Disease: No Data to Display Blood Cultures: No Data to Display Toxicology Panel: No Data to Display Anesthesia Assessment and Plan Anesthesia History Personal History: No History of Anesthesia Complications Family History: No Family History of Anesthesia Complications Exercise Tolerance Exercise Tolerance: Metabolic Equivalents>4 Pertinent Negatives Pertinent Negatives: No Symptoms of GERD Cardiac & Pulmonary Exam Cardiac Exam: Normal S1/S2 Heart Sounds Pulmonary Exam: Clear Bilateral Breath Sounds Implantable Cardiac Device Does patient have a Pacemaker or an ICD?: No Airway Exam Known Difficult Airway: No Mallampati Class: 2 Mouth Opening: Normal (> 3cm) Thyromental Distance: Greater than 3 cm Neck Range of Motion: Full ROM Neck Circumference: Normal Teeth Condition: Normal Dentition ASA Classification ASA Score: ASA 3 Emergency Case?: No NPO Status NPO Status: NPO Clears >2 hours, Solids >8 hours Anesthesia Plan Resuscitation Status: Full Code Anesthesia Technique: General Anesthesia Airway Planned: Endotracheal Tube Monitors Used: Standard Monitors
[2025-02-19] MEDS: ceFAZolin 2 GM/50 ML BAG IVPB (07:31)
[2025-02-19] MEDS: Lidocaine 2% Jelly 11 ML SYR (07:58)
[2025-02-19] MEDS: Omnipaque 300 MG/ML 50 ML BTL (08:07)
--- NOTE | 2025-02-19 08:30 | DI.RAD_ITS ---
Exam(s) XR RETROGRADE IN OR EXAM: XR RETROGRADE IN OR CLINICAL HISTORY: left ureteral stone. TECHNIQUE: 2D digital imaging was performed. COMPARISON: No exams were available for comparison FINDINGS: Fluoroscopy was provided during left-sided retrograde urologic procedure for calculi in left collecti ng system. A left ureteral stent was placed. See procedure report for details. Total fluoroscopy time 26 seconds IMPRESSION: Radiation exposure index/cumulative dose:Elizabethruth=24.214 mGy DATA REPOSITORY: RADIATION DOSE DELIVERED:
--- NOTE | 2025-02-19 08:33 | PDOC.DSDIS_ITS ---
Date of service: 02/19/25 Discharge Plan Disposition Patient Disposition: Home Discharge Details Reason For Visit: ureteroscopy Attending Provider: Gentry Brower Primary Care Provider: Gregorio Cruz Home Meds and New Rx's Prescriptions: New oxycodone 5 mg tablet 5 - 10 mg PO Q6H MDD 8 PRNQty: 25 0RF No Action tamsulosin 0.4 mg capsule 0.4 mg PO DAILY Qty: 13 0RF Rx Instructions: take one daily until you pass the kidney stone hydrochlorothiazide 25 mg tablet 25 mg PO DAILY metformin 500 mg tablet extended release 24 hr 500 mg PO DAILY metoprolol succinate 100 mg tablet extended release 24 hr 100 mg PO DAILY atorvastatin 20 mg tablet 20 mg PO DAILY Ondansetron Odt, 3 Tabs/Btl [Zofran Odt, 3 Tabs/Btl] 4 mg PO DISPENSE Qty: 1 0RF Discharge Instructions Additional Instructions: Your stone has been removed, so you do not need to strain your urine. You do have a stent in place. As long as the stent is there, you may notice increased urinary frequency and discomfort when you urinate. You may see blood in the urine as long as the stent is present. You will have 2 follow-up appointments in my office. The first will be to have your stent removed in 3 to 7 days. The second appointment will be about 6 weeks later. We will plan to do a renal ultrasound in the office at that time. Stand Alone Forms: Anesthesia Discharge Inst., [facility] ([facility]) Referrals: Gentry Brower MD [ [facility] STAFF PHYSICIAN] - (This gentleman will need two different appointments. His first appointment should be within a week to have his stent removed. Please let my office know that he has a string attached to his stent. The second appointment should be in about 6 weeks and I will plan to do a POCUS for his left kidney) Activity:: Activity as Tolerated Shower/Bathe:: 24 hours Diet:: As Tolerated Discharge Orders Discharge Orders: Discharge Order (Routine); Ordered 02/19/25 Ordered By: Gentry Brower DS: Diagnosis Discharge Diagnosis (1) Ureterolithiasis: Status: Acute
--- NOTE | 2025-02-19 08:40 | ROE_ITS ---
Operative Note Operative Note PRE-OP DIAGNOSIS: Left ureteral stone POST-OP DIAGNOSIS: same PROCEDURE: cystoscopy, left retrograde pyelogram, left ureteral dilation, left ureteroscopy with stone extraction, insert left ureteral stent SURGEON: Gentry Brower ANESTHESIA TYPE: Local By Surgeon and General LMA/ETT Refer to Anesthesia Record ESTIMATED BLOOD LOSS: 5 PATHOLOGY: other (left ureteral stone for chemical analysis) COMPLICATIONS: None Patient was transported to: PACU Patient's condition: stable Implants: 6 Bahamian by 22 to 30 cm left ureteral stent Indications: This is a 59-year-old gentleman who presented to the emergency department with left renal colic. He was found to have a left distal ureteral stone. He was treated conservatively, but his stone has not progressed and he has required 2 additional emergency department visits for recurrent pain. He presents now for stone manipulation Findings: Left distal ureteral stone with edema of the left ureteral orifice Procedure Description: The patient was given IV antibiotics and brought to the operating room on 02/19/2025. After successful induction of general anesthesia, he was placed in the dorsal lithotomy position. His genitalia was prepped and draped. 2% Xylocaine jelly was instilled into the urethra A 22 Bahamian rigid cystoscope was passed through the urethra into the bladder. The urethra and bladder were inspected with the 30 degree lens. The pendulous, bulbar and membranous urethra appeared normal with no strictures. The prostatic urethra showed some mild lateral lobe enlargement with no significant median lobe. The bladder neck was slightly elevated. The bladder neck was entered and the bladder mucosa was inspected. The right ureteral orifice appeared normal in configuration and location. On the left side, there was increased erythema and edema around the left ureteral orifice. I was able to cannulate the left orifice with a 5 Bahamian access catheter, but I could not advance the catheter very far up the ureter. I did a retrograde pyelogram by injecting Omnipaque through the access catheter and we identified distal narrowing with dilation of the ureter above the level of the stone. I was able to pass the guidewire through the lumen of the access catheter and advanced the wire up the ureter. I then passed a UroMax balloon (4 cm length) over the wire and dilated the distal ureter/ureteral orifice by inflating the balloon. The balloon was deflated and was removed leaving the wire in place. I was then able to pass the semirigid ureteroscope through the urethra into the bladder and engage the scope up the left ureter. I could visualize a stone embedded in the left distal ureteral wall. I was able to tease the stone away from the wall and back into the lumen of the ureter. Once that was done, I was able to grasp the stone and a [employer]way[employer] stone basket and remove it in its entirety. The stone was then sent to the laboratory for chemical analysis. Because of the presence of edema and the balloon dilation, we elected to place a ureteral stent in this gentleman. I chose a 6 Bahamian variable length stent and advanced it over the wire. The proximal end of the stent was curled in the renal pelvis and the distal end was curled within the bladder. The positioning of the stent was confirmed both fluoroscopically and cystoscopically. A safety string was left on the stent. The string was brought through the patient's urethra and anchored to the dorsum of the penis using a Steri-Strip. The patient tolerated this procedure well with no complications. He was taken to the recovery room in stable condition. Date of Procedure: 02/19/25
--- NOTE | 2025-02-19 09:24 | W.ANESPOSTOP ---
Postoperative Evaluation Date, Time and Location Date Performed: 02/19/25 Time Performed: 09:24 Patient Location: PACU Vital Signs Most Recent Imported Vital Signs: Most Recent Vital Signs Temp Pulse Resp BP Pulse Ox 36.6 C 53 L 14 116/70 95 02/19/25 09:21 02/19/25 09:21 02/19/25 09:21 02/19/25 09:21 02/19/25 09:21 Pain Score Most Recent Pain Score: Most Recent Pain Score Pain Level 0 02/19/25 09:16 Assessment Mental Status: Awake (Alert & Oriented to Patient Baseline) Airway and Respiratory Function: Patent airway with normal (patient baseline) respiratory exam Cardiovascular Function: Hemodynamically Stable Hydration Status: Adequately Hydrated Nausea & Vomiting: No Nausea or Vomiting Pain: Pt. Denies Any Pain Peripheral Nerve Block: Patient did not receive a nerve block Postoperative Comments:: Doing well in PACU with no complaints. Will be weaning 2 LPM off to room air.
[2025-02-19] MEDS: Oxybutynin 5 MG TAB PO (10:08)
[2025-02-19] MEDS: Phenazopyridine 200 MG TAB PO (10:08)
[2025-02-26 16:11] LABS: Source: Left Ureter
== END 2025-02-19 10:25 | disposition home or self-care (01) ==
PROVIDERS: PCP General Practice; Visit Provider Urology
PROC: (CPT 52344; principal; 2025-02-19 07:30)
DX: N20.1 Calculus of ureter (principal)
CPT/HCPCS: 52344; 52352; 52332; 74420; 82365; J0690; J1100; J1885; J2250; J2405; J2704; Q9967

== ENCOUNTER 2025-03-24 16:07 | Outpatient (CLI) | payer OTHER, SELFPAY ==
[2025-03-24 16:16] LABS: Hemoglobin A1C 8.1 % (<5.7)
[2025-03-24 17:05] LABS: Calculated LDL 94 mg/dL (<100); Cholesterol 173 mg/dL (<200); HDL Cholesterol 46 mg/dL (>or=40); Triglyceride 168 mg/dL (<150)
== END 2025-03-24 16:08 | disposition home or self-care (01) ==
LOC: LBO 16:09
PROVIDERS: PCP General Practice; Visit Provider Nurse Practitioner Family
DX: Z00.00 Encounter for general adult medical examination without abnormal findings (principal)
CPT/HCPCS: 36415; 80061; 83036

== ENCOUNTER 2025-04-03 00:25 | Outpatient (CLI) | payer OTHER, SELFPAY ==
--- NOTE | 2025-04-03 14:59 | DI.RAD_ITS ---
Exam(s) XR HAND RT COMPLETE EXAM: XR HAND RT COMPLETE CLINICAL HISTORY: 4th mcp pain over past several months,M79.641. TECHNIQUE: 2D digital imaging was performed. COMPARISON: No exams were available for comparison FINDINGS: 3 views No evidence of acute fracture nor dislocation. There is a small benign appearing peripherally sclerotic cyst in the distal phalanx of the 4th finger . No metacarpal findings. Incidentally noted is a 1 millimeter radiopaque foreign body in the soft tissues of the thumb adjacen t to the distal phalanx. There is no radiographic evidence of fracture or osteomyelitis at this leve l. IMPRESSION: No fractures. 1 millimeter radiopaque foreign body in the distal half of the thumb soft tissues as described above. DATA REPOSITORY: RADIATION DOSE DELIVERED:
== END 2025-04-03 00:45 ==
LOC: DI 00:25
PROVIDERS: PCP Nurse Practitioner Family; Visit Provider Nurse Practitioner Family
DX: M79.641 Pain in right hand (principal); S60.351A Superficial foreign body of right thumb, initial encounter; X58.XXXA Exposure to other specified factors, initial encounter
CPT/HCPCS: 73130

== ENCOUNTER 2025-06-02 06:41 | Observation (INO) | payer OTHER, SELFPAY ==
[2025-06-02] VITALS (55 sets, daily range): BP systolic 163–212; BP diastolic 67–107; PULSE 51–73; RESP 12–27; TEMP 36.3–36.5; O2SAT 87–97
--- NOTE | 2025-06-02 06:30 | RT.EKG_ITS ---
APPROVED REPORT Exam: Resting ECG Reason for Exam: SOB Patient Location: E HR:58 bpm ECG Measurements Heart Rate 58 AXIS OK 157 P 35 QRSd 90 QRS 44 QT 392 T 43 QTc 384 Conclusion Sinus bradycardia...rate< 60 I have reviewed and interpreted ECG and agree with software generated interpretation.
--- NOTE | 2025-06-02 06:45 | DI.RAD_ITS ---
Exam(s) XR PORTABLE CHEST AP EXAM: XR PORTABLE CHEST AP CLINICAL HISTORY: SOB, hypoxic. TECHNIQUE: 2D digital imaging was performed. COMPARISON: CT CT ABDOMEN PELVIS WO from 02/17/2025 FINDINGS: Single AP portable view. Mild cardiomegaly. Mediastinum is not widened. There appears to be a pulmonary venous hypertension pattern although this may be exaggerated by the portable AP technique. There is no airspace pulmonary edema. There are no pleural effusions. No fractures. No pneumothorax. IMPRESSION: Possible pulmonary venous hypertension pattern. DATA REPOSITORY: RADIATION DOSE DELIVERED:
--- NOTE | 2025-06-02 07:01 | ED.GENADUL_ITS ---
Discharge Plan Discharge Details Chief Complaint: SOB Clinical Impression: Hypertensive urgency, CHF exacerbation Primary Care Provider: Jackie Toussaint ED Provider: Alexander Clark Home Meds and New Rx's Prescriptions: No Action amlodipine 10 mg tablet 10 mg PO DAILY Qty: 90 3RF atorvastatin 40 mg tablet 40 mg PO DAILY Qty: 90 3RF metformin 500 mg tablet extended release 24 hr 1,000 mg PO DAILY Qty: 60 3RF (DME) blood-glucose meter [FreeStyle Lite Meter] Kit See Rx Instructions .Route Qty: 1 0RF Rx Instructions: Check Blood sugars daily (DME) FreeStyle Lite Strips Strip See Rx Instructions .Route Qty: 100 3RF Rx Instructions: Check blood sugar daily (DME) lancets [FreeStyle Lancets] 28 gauge misc See Rx Instructions .Route Qty: 100 3RF Rx Instructions: Check blood sugar daily dapagliflozin propanediol [Farxiga] 5 mg tablet 5 mg PO QAM Qty: 30 3RF hydrochlorothiazide 25 mg tablet 25 mg PO DAILY Qty: 90 1RF metoprolol succinate 100 mg tablet extended release 24 hr 100 mg PO DAILY HPI General Date/Time Provider Initiated Documentation: 06/02/25 06:42 . HPI Narrative: This is a 59-year-old male with a past medical history of hypertension, high cholesterol, diabetes, and a strong family history of cardiac disease, who does not smoke, who presents today for evaluation of shortness of breath. Patient states that for the last 2 to 3 days he has been short of breath. Usually when he gets up walks around, and exerts himself. He states that it is made slightly better with rest. He denies any nocturnal positional dyspnea. He does admit to a very small amount of left upper chest pain with deep breathing. He denies any fever or chills or cough. He denies any hemoptysis. He denies any history of blood clots. He admits to some mild chronic puffiness in his lower extremities, but does not feel that it is particularly worse today. He denies any calf tenderness. No other complaints at this time. Related Data Home Medications ?Medication ?Instructions ?Recorded ?Confirmed metoprolol succinate 100 mg 100 mg PO DAILY 02/17/25 0 06/02/25 tablet,extended release 24 hr metformin 500 mg tablet,extended 1,000 mg (2 x 500 mg) PO DAILY #60 03/24/25 06/02/25 release 24 hr tabs amlodipine 10 mg tablet 10 mg PO DAILY #90 tabs 03/0606/02/25 atorvastatin 40 mg tablet 40 mg PO DAILY cholesterol # 90 tabs 03/31/25 06/02/25 blood sugar diagnostic (FreeStyle #100 ea 03/31/25 Lite Strips) blood-glucose meter (FreeStyle #1 ea 03/31/25 06/02/25 Lite Meter kit) lancets 28 gauge (FreeStyle #100 ea 03/31/25 06/02/25 Lancets) dapagliflozin propanediol 5 mg 5 mg PO QAM diabetes #3 0 tabs 04/08/25 06/02/25 tablet (xi) hydrochlorothiazide 25 mg tablet 25 mg PO DAILY #90 ta bs 04/17/25 06/02/25 Previous Rx's ?Medication ?Instructions ?Recorded metformin 500 mg tablet,extended 1,000 mg (2 x 500 mg) PO DAILY #60 03/24/25 release 24 hr tabs amlodipine 10 mg tablet 10 mg PO DAILY #90 tabs 03/06 05/29 atorvastatin 40 mg tablet 40 mg PO DAILY cholesterol # 90 tabs 03/31/25 blood sugar diagnostic (FreeStyle #100 ea 03/31/25 Lite Strips) blood-glucose meter (FreeStyle #1 ea 03/31/25 Lite Meter kit) lancets 28 gauge (FreeStyle #100 ea 03/31/25 Lancets) dapagliflozin propanediol 5 mg 5 mg PO QAM diabetes #3 0 tabs 04/08/25 tablet (Farxiga) hydrochlorothiazide 25 mg tablet 25 mg PO DAILY #90 ta bs 04/17/25 Allergies Allergy/AdvReac Type Severity Reaction Status Date / Time No Known Allergies Allergy Verified 06/02/25 06:53 General Stated Complaint: SOB SAILAJA: 3 Exam Narrative Exam Narrative: 1.Const: Well-nourished, Well-developed, appearing stated age 2.Eyes: PERRL, no conjunctival injection, and symmetrical lids. 3.ENT: Atraumatic external nose and ears. Moist MM. Neck: Symmetric, trachea midline, No thyromegaly. 4.CVS: +S1/S2, Peripheral pulses 2+ and equal in all extremities. Brisk capillary refill in all extremities. 5.RESP: Unlabored respiratory effort. Clear to auscultation bilaterally. No wheezes rales or rhonchi 6.GI: Soft, Nontender/Nondistended, No hepatosplenomegaly. No guarding or rebound. 7.MSK: Normocephalic/Atraumatic, Extremities w/o deformity or ttp No cyanosis or clubbing, Normal movement of all extremities. +1 to +2 pitting edema in lower extremities bilaterally. No calf tenderness. 8.Skin: Warm, Dry. No rashes or lesions. 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 Sensation grossly intact, no focal neurologic deficits. 10.Psych: (AAO) x3. Appropriate mood and affect Course Vital Signs Vital signs: Vital Signs Pulse 67 06/02/25 06:44 Respiratory Rate 18 06/02/25 06:44 Blood Pressure 203/100 H 06/02/25 06:44 Pulse Oximetry 93 06/02/25 06:44 Temperature 36.5 C 06/02/25 06:52 Temperature Source Oral 06/02/25 06:52 Pulse 67 06/02/25 06:52 Respiratory Rate 18 06/02/25 06:54 Respiratory Effort Short of Breath 06/02/25 06:54 Respiratory Depth Shallow 06/02/25 06:54 Respiratory Pattern Normal 06/02/25 06:54 Blood Pressure 203/100 H 06/02/25 06:52 Blood Pressure Position Sitting 06/02/25 06:52 Pulse Oximetry 93 06/02/25 06:52 Oxygen Delivery Method Room Air 06/02/25 06:52 Oxygen Flow Rate 0 06/02/25 06:52 Pain Level 0 06/02/25 06:52 Medical Decision Making This is a 59-year-old male with a past medical history of hypertension, high cholesterol, diabetes, and a strong family history of cardiac disease, who does not smoke, who presents today for evaluation of shortness of breath. Patient states that for the last 2 to 3 days he has been short of breath. Usually when he gets up walks around, and exerts himself. He states that it is made slightly better with rest. He denies any nocturnal positional dyspnea. He does admit to a very small amount of left upper chest pain with deep breathing. He denies any fever or chills or cough. He denies any hemoptysis. He denies any history of blood clots. He admits to some mild chronic puffiness in his lower extremities, but does not feel that it is particularly worse today. He denies any calf tenderness. No other complaints at this time. Exam demonstrates a well-appearing male, notably hypertensive with blood pressure of 203/100 dictating hypertensive urgency. No crackles wheezes rales or rhonchi on his lung exam, +1 to +2 pitting edema in his lower extremities. Bedside limited ultrasound demonstrates a qualitative mild to moderately reduced ejection fraction likely around 35-40%. Concern for congestive heart failure exacerbation secondary to hypertensive urgency. Differential also includes cardiac etiology versus ischemia, PE, less likely pneumonia. Will evaluate for these etiologies, monitor closely and reassess. Will give the patient 20 of Lasix, 20 of labetalol now for control of blood pressure and excess fluids. He has no chest pain, so we will hold on nitro for the time being. Patient will be signed out to my colleague Dr. Pacheco, follow-up on labs and imaging. Critical Care Time Critical Care Time Critical Care Time: Yes Total Critical Care Time: 30 Attestation: Upon my evaluation, this patient had a high probability of imminent or life- threatening deterioration, which required my direct attention, intervention, and personal management. I have personally provided 30 minutes of critical care time exclusive of time spent on separately billable procedures. Time includes review of laboratory data, radiology results, discussion with consultants, and monitoring for potential decompensation. Interventions were performed as documented. PFSH All Active Problems (Updated 06/02/25 @ 07:10 by Alexander Clark DO) CHF exacerbation (Acute) Hypertensive urgency (Acute) Diabetes (Chronic) Right hand pain (Acute) Rash (Acute) Follow-up exam (Acute) Preventative health care (Acute) Medical History (Updated 06/02/25 @ 07:10 by Alexander Clark DO) HTN (hypertension) Prediabetes High cholesterol Surgical History (Updated 04/06/25 @ 15:49 by Gentry Brower MD) History of ureteroscopy S/P tendon repair Hx of colonoscopy Hx of hand surgery Social History Smoking/Tobacco Use Status: Never Smoking risk assessment performed?: Yes Alcohol Intake: current Alcohol Intake frequency: holidays/special occasions only Drug use: Rarely Substance use type: marijuana Details: denies use for couple of months. Housing: house Do you feel safe at home: Yes Do you feel safe in your relationship?: Yes POCUS Exam (ED) Limited Cardiac Exam DATE OF EXAM: 06/02/25 TIME OF EXAM: 07:09 PROVIDER THAT PERFORMED THE STUDY: Alexander Clark IS THIS A REPEAT EXAM DURING THIS ENCOUNTER: no REASON FOR EXAM: Dyspnea VISUALIZED STRUCTURES: Left ventricle, Right ventricle and Interventricular septum VIEW OBTAINED: Parasternal long-axis and Subxiphoid PERTINENT FINDINGS/IMPRESSION: LV dysfunction :moderate Exam complete
[2025-06-02] MEDS: Furosemide 20 MG/2 ML VIAL IVP (07:20)
[2025-06-02] MEDS: Labetalol 100 MG/20 ML VIAL 20 MG IVP (07:23)
[2025-06-02 07:29] LABS: BE (Venous) 10 mmol/L (-2-3); HCO3 (Venous) 36 mmol/L (23-28); O2 Sat (Venous) 91 %; TCO2 (Venous) 32 mmol/L (24-29); pO2 (Venous) 65 mmHg
[2025-06-02 07:30] LABS: Abs Immature Grans 0.03 10^3/uL (0.0-0.06); HCT 41.0 % (40.0-50.0); HGB 13.3 g/dL (13.5-17.5); Immature Grans % 0.5 %; MCH 28.9 pg (27.0-33.0); MCHC 32.4 % (32.0-36.0); MCV 89 fL (80-95); MPV 9.3 fL (8.0-11.0); Platelet Count 189 10^3/uL (130-400); RBC 4.60 10^6/uL (4.36-5.78); RDW 12.3 % (11.8-14.1); RDW-SD 39.8 fL; WBC 5.87 10^3/uL (4.4-10.8)
[2025-06-02 07:31] LABS: pCO2 (Venous) 65 mmHg (41-51)
[2025-06-02 07:45] LABS: INR 1.0 (0.9-1.1); PTT Activated 24.1 sec (20.6-30.2); Prothrombin Time 10.1 sec (9.1-11.1)
[2025-06-02 07:59] LABS: D-Dimer 383 ng/mlFEU (<500)
[2025-06-02 08:03] LABS: ALT 32 U/L (16-63); AST 15 U/L (15-37); Albumin 3.3 g/dL (3.4-5.0); Alkaline Phosphatase 101 U/L (46-116); Anion Gap 1.5 mmol/L (3-11); BUN 19 mg/dL (7-18); Bilirubin, Total 0.4 mg/dL (0.2-1.0); CO2 39.5 mmol/L (21.0-32.0); Calcium 8.9 mg/dL (8.5-10.1); Chloride 103 mmol/L (98-107); Estimated GFR 106.80 (mL/min/1.73m2); Glucose 207 mg/dL (74-106); NT-proBNP 181 pg/mL (<300); Potassium 3.7 mmol/L (3.5-5.1); Sodium 144 mmol/L (136-145); Total Protein 6.6 g/dL (6.4-8.2); Troponin I 11 ng/L (<or=76)
[2025-06-02 08:34] LABS: BE (Venous) 12 mmol/L (-2-3); HCO3 (Venous) 38 mmol/L (23-28); O2 Sat (Venous) 83 %; TCO2 (Venous) 34 mmol/L (24-29); pO2 (Venous) 48 mmHg
[2025-06-02 08:36] LABS: pCO2 (Venous) 67 mmHg (41-51)
--- NOTE | 2025-06-02 08:49 | ED.PROG_ITS ---
Date of service: 06/02/25 Time of Service: 07:45 Medical Decision Making In brief, this is a 59-year-old male patient with a history of diabetes who is presenting for evaluation of shortness of breath worse on exertion, found to be hypoxic to 87% and requiring 2 L of supplemental oxygen by nasal cannula. At th e time that I took over his care his laboratory evaluation has been initiated, he did have evidence of hypertension and a moderately reduced ejection fraction on ultrasound, and has received labetalol and Lasix to good effect. His VBG notes hypercarbia without associated acidosis, patient with body habitus suggestive of potential KRYSTIN or obesity hypoventilation though normal no formal diagnosis of same. The patient's troponin was negative and without interval increase in 1 hour delta recheck, D-dimer was negative, and the remainder of his laboratory work notes no leukocytosis, significant electrolyte derangement or evidence of kidney or liver dysfunction. His BNP is not significantly elevated. Chest x-ray reviewed by myself, showing some pulmonary vascular congestion. Given the new oxygen requirement I feel that admission is warranted in this patient, and reach out to the hospitalist service. They have graciously accepted him for admission and requested an order for a formal echo, which I placed. He remained hemodynamically appropriate while under my care was transferred to the hospitalist service without incident. Tiffanie Pacheco MD Medical Records Medical records reviewed: Yes I reviewed the patient's medical records. Lab Data Lab results reviewed: Yes I reviewed the patient's lab results. Discharge Plan Disposition Patient Disposition: Admit to [facility] Condition: Stable Discharge Details Clinical Impression: Hypertensive urgency, CHF exacerbation, Acute hypoxic respiratory failure, Chronic hypercapnia Primary Care Provider: Jackie Toussaint ED Provider: Tiffanie Pacheco Home Meds and New Rx's Prescriptions: No Action amlodipine 10 mg tablet 10 mg PO DAILY Qty: 90 3RF atorvastatin 40 mg tablet 40 mg PO DAILY Qty: 90 3RF metformin 500 mg tablet extended release 24 hr 1,000 mg PO DAILY Qty: 60 3RF (DME) blood-glucose meter [FreeStyle Lite Meter] Kit See Rx Instructions .Route Qty: 1 0RF Rx Instructions: Check Blood sugars daily (DME) FreeStyle Lite Strips Strip See Rx Instructions .Route Qty: 100 3RF Rx Instructions: Check blood sugar daily (DME) lancets [FreeStyle Lancets] 28 gauge misc See Rx Instructions .Route Qty: 100 3RF Rx Instructions: Check blood sugar daily dapagliflozin propanediol [Farxiga] 5 mg tablet 5 mg PO QAM Qty: 30 3RF hydrochlorothiazide 25 mg tablet 25 mg PO DAILY Qty: 90 1RF metoprolol succinate 100 mg tablet extended release 24 hr 100 mg PO DAILY
[2025-06-02 09:05] LABS: Troponin I 11 ng/L (<or=76)
[2025-06-02] MEDS: Acetaminophen 500 MG TAB 1000 MG PO (10:39)
--- NOTE | 2025-06-02 11:00 | DI.US_ITS ---
APPROVED REPORT EXAM: Comprehensive 2D, Doppler, and color-flow Echocardiogram Patient Location: ER Room/Bed: 8 Rough Rib Grader: Rom Doyle RDCS (AE) Indications: New CHF Other Information Study Quality: Technically Limited. Technically limited study due to body habitus. Conclusion Technically difficult study Mild concentric left ventricular hypertrophy. Ejection fraction is 60%. Wall motion appears normal Normal right ventricular size and function Mildly enlarged left atrium. Normal right atrial size Within the limits of the study no significant valvular disease is identified Wall motion Left Ventricle Left ventricle is mildly dilated. The left ventricular systolic function is normal. The left ventricular ejection fraction is within the normal range. Mild concentric left ventricular hypertrophy. There is normal LV segmental wall motion. There is no ventricular septal defect visualized. LVEF is 60-65%. Right Ventricle The right ventricle is normal size. Right ventricular systolic function is grossly normal. Atria Left atrium is mildly dilated. The right atrium size is normal. The interatrial septum is intact with no evidence for an atrial septal defect. Aortic Valve Aortic valve is grossly normal in structure. There is no aortic valvular stenosis. No aortic regurgitation is present. Mitral Valve The mitral valve is normal in structure. No evidence of mitral valve stenosis. Trace mitral regurgitation. Tricuspid Valve The tricuspid valve is normal in structure. There is no tricuspid valve stenosis. Trace tricuspid regurgitation. Pulmonic Valve The pulmonary valve is normal in structure. There is no pulmonic valvular stenosis. There is no pulmonic valvular regurgitation. Great Vessels The aortic root is normal in size. The ascending aorta is normal in size. Aortic arch is normal in caliber. IVC is normal in size and collapses >50% with inspiration. Pericardium There is no pericardial effusion. 2D Dimensions IVSD d PLAX 1.41 cm M: 0.6-1.2 Ao Root d 3.22 cm M: 3.1 - 3.7 LVPW d PLAX 1.45 cm M: 0.6 - 1.2 Ao Asc Diam d 3.24 cm M: 2.6 - 3.4 LVID d PLAX 6.17 cm M: 4.2 - 5.8 LVDs 4.10 cm M: 2.5 - 4.0 LV EF Teichholz 61.2 % FS 33.47 % LV EDV (Teich) 191.5 mL LV ESV (Teich) 74.3 mL Stroke Vol Index (Teich) 49.88 M-Mode TAPSE 2.68 cm (M/F) >1.7 LV Volumes - Method of Disks (Celis's) Single Plane 2D LV Volumes Biplane 2D LV Volumes LV EDV A4C 167.0 mL LV EDV BP 153.18 mL M: 62 - 150 LV ESV A4C 67.6 mL LV ESV BP 59.0 mL LVEF(%) A4C 59.5 % LVEF(%) BP 61.50 % M: 52 - 72 LV EDV A2C 135.8 mL LV EDV BP Index 65.18 mL/m2 M: 34 - 74 LV ESV A2C 48.3 mL SV BP LVEF(%) A2C 64.5 % SV Index LA Volume LA Length A4C 5.9 cm LA Length A2C 5.3 cm LA Area A4C s 22.21 cm2 LA Area A2C s 18.48 cm2 LA Vol A4C A-L 71.48 mL LA Vol A2C A-L 54.49 mL LA Vol Biplane A-L 65.5 mL LA Vol/BSA A4C A-L LA Vol/BSA A2C A-L LA Vol/BSA BP A-L 27.9 mL/m2 LA Vol A4C MOD 68.1 mL LA Vol A2C MOD 51.9 mL LA Vol BP MOD 62.1 mL RA Volume RA Area A4C 9.6 cm2 RA ESV A4C (A-L) 16.9mL RA Vol/BSA A4C A-L RA Length A4C 4.6 cm RA ESV A4C (MOD) 15.7mL LV Diastology MV E' medial 0.087 (>0.07 m/s) MV E Vmax 0.87 (0.4-1.3 m/s) MV E/E' MED 9.97 (<14) MV A Vmax 0.80 (0.4-1.3 m/s) MV E' lateral 0.118 (>0.1 m/s) E/A Ratio 1.1 MV E/E' LAT 7.38 (<14) MV E' Average 0.103 m/s MV E/E'(average) 8.48 Aortic Valve AoV Vmax 1.56 m/s LVOT Vmax 1.23 m/s AoV Peak Grad 9.7 mmHg LVOT Peak Grad 6.1 mmHg AoV Area (Vmax) 2.93 cm2 LVOT VTI 0.278 m AoV VTI 0.338 m LVOT Mean Grad 3.2 mmHg AoV Mean Yang. 0.99 m/s LVOT SV 102.93 mL AoV Mean Grad 4.6 mmHg LVOT Diam s 2.15 cm AoV Area (VTI) 3.05 cm2 AV Regurg Peak Gr. 9.74 mmHg Velocity Ratio 0.79 Mitral Valve MV DT 206 (160-240 msec) Pulmonary Valve PV Vmax 1.00 (0.5-1.5 m/s) RVOT Vmax 0.58 m/s PV Peak Grad 4.0 mmHg RVOT Peak Gr. 1.4 mmHg PV Mean Yang 0.69 m/s RVOT VTI 0.168 m PV Mean Grad 2.2 mmHg RVOT Mean Gr. 0.9 mmHg
[2025-06-02 11:28] LABS: Troponin I 9 ng/L (<or=76)
--- NOTE | 2025-06-02 12:39 | W.PC.ACHO ---
Registration Status: ADM JEZ Primary Language: Preferred Language: Cameroonian ED Information & Data Chief Complaint SOB 06/02/25 07:01 Triage Note SOB that started Sunday06/02/25 06:44 Medical / Surgical History (Last Reviewed 02/19/25 @ 06:23 by Kailey Crisostomo RN) HTN (hypertension) Prediabetes High cholesterol (Last Updated 04/06/25 @ 15:49 by Gentry Brower MD) History of ureteroscopy S/P tendon repair Hx of colonoscopy Hx of hand surgery Most Recent Vital Signs Temperature 36.4 C L 06/02/25 12:25 Temperature Source Temporal Artery Scan 06/02/25 12:25 Pulse 57 L 06/02/25 12:25 Pulse 53 L 06/02/25 11:50 Respiratory Rate 20 06/02/25 12:25 Respiratory Effort Short of Breath 06/02/25 06:54 Respiratory Depth Shallow 06/02/25 06:54 Respiratory Pattern Normal 06/02/25 06:54 Blood Pressure 169/89 H 06/02/25 12:25 Blood Pressure Mean 115 06/02/25 12:25 Blood Pressure Position Sitting 06/02/25 06:52 Pulse Oximetry 91 L 06/02/25 12:25 Oxygen Delivery Method Room Air 06/02/25 12:25 Oxygen Flow Rate 0 06/02/25 12:25 Pain Level 0 06/02/25 12:25 Allergies No Known Allergies Allergy (Verified 06/02/25 06:53) Precautions Isolation Standard precaution 06/02/25 06:51 IV IV Catheter Type [Right Peripheral IV Antecubital] IV Catheter Gauge [Right 18 Antecubital] Diet Orders Category Date Time Status Heart Healthy Eating [DIET] Nutrition 06/02/25 Lunch Active Diagnostics 06/02/25 06/02/25 06/02/25 Range/Units 11:08 08:30 07:11 WBC 5.87 (4.4-10.8) 10^3/uL RBC 4.60 (4.36-5.78) 10^6/uL Hgb 13.3 L (13.5-17.5) g/dL Hct 41.0 (40.0-50.0) % MCV 89 (80-95) fL MCH 28.9 (27.0-33.0) pg MCHC 32.4 (32.0-36.0) % RDW 12.3 (11.8-14.1) % Plt Count 189 (130-400) 10^3/uL MPV 9.3 (8.0-11.0) fL Immature Gran % 0.5 % Neutrophils % 69.4 % Lymphocytes % 15.8 % Monocytes % 9.9 % Eosinophils % 3.9 % Basophils % 0.5 % Nucleated RBC % 0.0 (0.0-0.3) % Absolute Neutrophils 4.07 (1.2-6.7) 10^3/uL Absolute Lymphocytes 0.93 L (1.2-3.4) 10^3/uL Absolute Monocytes 0.58 (0.1-0.8) 10^3/uL Absolute Eosinophils 0.23 (0.0-0.7) 10^3/uL Absolute Basophils 0.03 (0.0-0.2) 10^3/uL PT 10.1 (9.1-11.1) sec INR 1.0 (0.9-1.1) APTT 24.1 D-Dimer 383 (<500) ng/mlFEU VBG pH 7.36 7.35 (7.31-7.41) VBG pCO2 67 H* 65 H* (41-51) mmHg VBG pO2 48 65 mmHg VBG HCO3 38 H 36 H (23-28) mmol/L VBG Total CO2 34 H 32 H (24-29) mmol/L VBG O2 Saturation 83 91 % VBG Base Excess 12 H 10 H (-2-3) mmol/L Sodium 144 (136-145) mmol/L Potassium 3.7 (3.5-5.1) mmol/L Chloride 103 (98-107) mmol/L Carbon Dioxide 39.5 H (21.0-32.0) mmol/L Anion Gap 1.5 L (3-11) mmol/L BUN 19 H (7-18) mg/dL Creatinine 0.7 (0.70-1.30) mg/dL Est GFR (CKD-EPI 2020) 106.80 (mL/min/1.73m2) Glucose 207 H (74-106) mg/dL Calcium 8.9 (8.5-10.1) mg/dL Total Bilirubin 0.4 (0.2-1.0) mg/dL AST 15 (15-37) U/L ALT 32 (16-63) U/L Alkaline Phosphatase 101 (46-116) U/L Troponin I 9 11 11 (<or=76) ng/L NT-Pro-B Natriuret Pep 181 (<300) pg/mL Total Protein 6.6 (6.4-8.2) g/dL Albumin 3.3 L (3.4-5.0) g/dL 06/02/25 Range/Units 06:52 WBC (4.4-10.8) 10^3/uL RBC (4.36-5.78) 10^6/uL Hgb (13.5-17.5) g/dL Hct (40.0-50.0) % MCV (80-95) fL MCH (27.0-33.0) pg MCHC (32.0-36.0) % RDW (11.8-14.1) % Plt Count (130-400) 10^3/uL MPV (8.0-11.0) fL Immature Gran % % Neutrophils % % Lymphocytes % % Monocytes % % Eosinophils % % Basophils % % Nucleated RBC % (0.0-0.3) % Absolute Neutrophils (1.2-6.7) 10^3/uL Absolute Lymphocytes (1.2-3.4) 10^3/uL Absolute Monocytes (0.1-0.8) 10^3/uL Absolute Eosinophils (0.0-0.7) 10^3/uL Absolute Basophils (0.0-0.2) 10^3/uL PT (9.1-11.1) sec INR (0.9-1.1) APTT Cancelled D-Dimer (<500) ng/mlFEU VBG pH (7.31-7.41) VBG pCO2 (41-51) mmHg VBG pO2 mmHg VBG HCO3 (23-28) mmol/L VBG Total CO2 (24-29) mmol/L VBG O2 Saturation % VBG Base Excess (-2-3) mmol/L Sodium (136-145) mmol/L Potassium (3.5-5.1) mmol/L Chloride (98-107) mmol/L Carbon Dioxide (21.0-32.0) mmol/L Anion Gap (3-11) mmol/L BUN (7-18) mg/dL Creatinine (0.70-1.30) mg/dL Est GFR (CKD-EPI 2020) (mL/min/1.73m2) Glucose (74-106) mg/dL Calcium (8.5-10.1) mg/dL Total Bilirubin (0.2-1.0) mg/dL AST (15-37) U/L ALT (16-63) U/L Alkaline Phosphatase (46-116) U/L Troponin I (<or=76) ng/L NT-Pro-B Natriuret Pep (<300) pg/mL Total Protein (6.4-8.2) g/dL Albumin (3.4-5.0) g/dL Intake and Output - 24 Hour Total 06/02/25 06:41 thru 06/02/25 12:33 Weight 133.6 kg Falls Risk Assessment History of Falls No History 06/02/25 06:54 Contributing Factors No Factors 06/02/25 06:54 Ambulatory Aids Independent 06/02/25 06:54 Tubes/Lines W/no contributing factors 06/02/25 06:54 Gait Evaluation No gait disturbance 06/02/25 06:54 Cognition No cognitive impairment 06/02/25 06:54 Fall Total Score 10 06/02/25 06:54 Level of Risk Standard/Low Risk 06/02/25 06:54 Problems (Last Reviewed 02/19/25 @ 06:23 by Kailey Crisostomo RN) CHF exacerbation (Acute) Hypertensive urgency (Acute) v v v v v v v v v Sending and/or Receiving Nurses: Please use comment section below to note any information pertinent to the patient hand-off not included above. Information / Comments: AOx3, c/o SOB, denies pain. BP is high but he is asymptomatic. Independent, continent, pleasannt. IV in RAC. NSR/SB on telemetry Report received from: Crystal
[2025-06-02] MEDS: Normal Saline Flush 10 ML SYR IVP ×2 (13:29→20:29)
--- NOTE | 2025-06-02 15:02 | RESPIRATORY ---
RT Initial Evalutation/Assessment Start: 06/02/25 12:24 Freq: .q shift and prn Status: Complete Protocol: Document 06/02/25 14:48 [email or web address] (Rec: 06/02/25 15:02 [email or web address] [id number]) RT Assessment Smoking History Smoking/Tobacco Use Never Status OXYGEN HISTORY: Supplemental O2 At Rest 0 With Exertion 0 CPAP Settings N/A Can use home machine Had home unit for 6 months and couldn't tolerate it- returned to DME BIPAP Settings N/A Trilogy/AVAPS Settings N/A DME/Compliance DME N/A Activity Activity Level No limitations Respiratory Breath Sounds Breath Sounds Any abnormal sounds, decreased breath sounds Response No change Pulse Rate <100 Respiratory Rate <18 Shortness of Breath None Respiratory Therapy 1 Score Total Assessment and Plan Note Pt has no pulmonary history or denies any current respiratory symptoms. Currently scoring 1. Minimal Score (0-2) Bronchodilator aerosol therapy-No indication for bronchodilators, Continue home regimen if applicable Lung Expansion & Bronchial Hygiene Therapy- Coaching deep breathing/cough
--- NOTE | 2025-06-02 15:29 | HPE_ITS ---
Date of service: 06/02/25 Time of Service: 11:00 Assessment and Plan Assessment and plan (1) Acute hypoxic respiratory failure: Status: Acute Assessment and plan: Likely precipitated by hypertensive urgency Evidence of volume overload: +1 to +2 LE edema, exertional dyspnea, POCUS with moderately reduced EF (35?40%) * Continue IV diuresis * Daily weights, strict I/O, fluid/sodium restriction * Formal echocardiogram * Monitor respiratory status, consider oxygen if saturation drops < 92% (2) CHF exacerbation: Status: Acute Assessment and plan: Likely precipitated by hypertensive urgency Evidence of volume overload: +1 to +2 LE edema, exertional dyspnea, POCUS with moderately reduced EF (35?40%) * Continue IV diuresis * Daily weights, strict I/O, fluid/sodium restriction * Formal echocardiogram * Monitor respiratory status, consider oxygen if saturation drops < 92% * Start ARB (3) Hypertensive urgency: Status: Acute Assessment and plan: BP on arrival 203/100, asymptomatic other than SOB * Labetalol 20 mg IV given in ED * Monitor BP closely (q4h), titrate PO meds as needed * Start amlodipine, continue Metoprolol succinate, HCTZ * Reassess need for further antihypertensives based on response (4) Diabetes: Status: Chronic Assessment and plan: On Metformin, Dapagliflozin No acute hyperglycemic symptoms Monitor blood glucose ACHS Continue home regimen renal function stable A1c pending - last in March 2025 Hold dapagliflozin if concern for DIEUDONNE/dehydration (5) Hyperlipidemia: Status: Acute Assessment and plan: On atorvastatin 40 mg daily Continue statin therapy Lipid profile pending - last March 2025 History of Present Illness History of Present Illness Chief Complaint: Shortness of breath Narrative: 59-year-old male with a history of hypertension, hyperlipidemia, and type 2 diabetes, with a strong family history of cardiac disease, presenting with 2?3 days of progressive exertional shortness of breath. He reports that dyspnea occurs with activity and improves with rest. Denies orthopnea, PND, fever, chills, cough, hemoptysis, or history of DVT/PE. Mild left-sided upper chest discomfort reported only with deep inspiration. Denies current chest pain. Denies worsening leg swelling or calf tenderness. No other systemic complaints noted. Patient found to be in hypertensive urgency with evidence of volume overload. Bedside cardiac POCUS revealed moderately reduced LVEF (35?40%), concerning for CHF exacerbation. Patient had no chest pain or fever. No crackles or wheezing on lung exam. Received IV Lasix 20 mg and Labetalol 20 mg in ED. Admitted to the medical floor for observation and management. Patient is a full code. Review of Systems Narrative: * General: No fever, chills, or weight changes * Cardiovascular: Exertional dyspnea, mild inspiratory chest discomfort, no orthopnea or PND * Respiratory: Shortness of breath with exertion, no cough, no hemoptysis * GI: No abdominal pain, nausea, vomiting, or diarrhea * : No dysuria or hematuria * Neuro: No dizziness, syncope, or focal deficits * Extremities: Mild chronic edema, no new swelling or calf pain * Psych: No mood changes, alert and oriented PFSH All Active Problems (Updated 06/02/25 @ 18:27 by Rosana Vargas NP) Hyperlipidemia (Acute) Chronic hypercapnia (Acute) Acute hypoxic respiratory failure (Acute) CHF exacerbation (Acute) Hypertensive urgency (Acute) Diabetes (Chronic) Right hand pain (Acute) Rash (Acute) Follow-up exam (Acute) Preventative health care (Acute) Medical History (Updated 06/02/25 @ 18:27 by Rosana Vargas NP) HTN (hypertension) Prediabetes High cholesterol Surgical History (Updated 04/06/25 @ 15:49 by Gentry Brower MD) History of ureteroscopy S/P tendon repair Hx of colonoscopy Hx of hand surgery Social History Smoking/Tobacco Use Status: Never Smoking risk assessment performed?: Yes Alcohol Intake: current Alcohol Intake frequency: holidays/special occasions only Drug use: Rarely Substance use type: marijuana Details: denies use for couple of months. Housing: house Do you feel safe at home: Yes Do you feel safe in your relationship?: Yes Meds Allergies and Home Medications Allergies Allergy/AdvReac Type Severity Reaction Status Date / Time No Known Allergies Allergy Verified 06/02/25 06:53 Home Medications ?Medication ?Instructions ?Recorded ?Confirmed ?Type metoprolol succinate 100 mg 100 mg PO DAILY 02/17/25 0 06/02/25 History tablet,extended release 24 hr metformin 500 mg tablet,extended 1,000 mg (2 x 500 mg) PO DAILY #60 03/24/25 06/02/25 Rx release 24 hr tabs amlodipine 10 mg tablet 10 mg PO DAILY #90 tabs 05/05/2906/02/25 Rx atorvastatin 40 mg tablet 40 mg PO DAILY cholesterol # 90 tabs 03/31/25 06/02/25 Rx blood sugar diagnostic (FreeStyle #100 ea 03/31/25 Rx Lite Strips) blood-glucose meter (FreeStyle #1 ea 03/31/25 06/02/25 Rx Lite Meter kit) lancets 28 gauge (FreeStyle #100 ea 03/31/25 06/02/25 Rx Lancets) dapagliflozin propanediol 5 mg 5 mg PO QAM diabetes #3 0 tabs 04/08/25 06/02/25 Rx tablet (Farxiga) hydrochlorothiazide 25 mg tablet 25 mg PO DAILY #90 ta bs 04/17/25 06/02/25 Rx Exam Narrative Exam Narrative: Constitutional: Well-nourished, NAD HEENT: PERRL, MMM, no lesions Neck: No JVD, trachea midline CV: Regular rate and rhythm, +S1/S2, 2+ peripheral pulses Resp: Clear to auscultation bilaterally, no wheezes, rales, or rhonchi Abdomen: Soft, NT, ND Extremities: +1 to +2 pitting edema bilaterally, no calf tenderness Neuro: CN II?XII intact, no focal deficits Skin: Warm, dry Psych: Alert, appropriate affect Results Labs 06/02/25 07:11 06/02/25 07:11 Labs: Laboratory Results - last 24 hr 06/02/25 06/02/25 06/02/25 06:52 07:11 08:30 WBC 5.87 RBC 4.60 Hgb 13.3 L Hct 41.0 MCV 89 MCH 28.9 MCHC 32.4 RDW 12.3 Plt Count 189 MPV 9.3 Immature Gran % 0.5 Neutrophils % 69.4 Lymphocytes % 15.8 Monocytes % 9.9 Eosinophils % 3.9 Basophils % 0.5 Nucleated RBC % 0.0 Absolute Neutrophils 4.07 Absolute Lymphocytes 0.93 L Absolute Monocytes 0.58 Absolute Eosinophils 0.23 Absolute Basophils 0.03 PT 10.1 INR 1.0 APTT Cancelled 24.1 D-Dimer 383 VBG pH 7.35 7.36 VBG pCO2 65 H* 67 H* VBG pO2 65 48 VBG HCO3 36 H 38 H VBG Total CO2 32 H 34 H VBG O2 Saturation 91 83 VBG Base Excess 10 H 12 H Sodium 144 Potassium 3.7 Chloride 103 Carbon Dioxide 39.5 H Anion Gap 1.5 L BUN 19 H Creatinine 0.7 Est GFR (CKD-EPI 2020) 106.80 Glucose 207 H Calcium 8.9 Total Bilirubin 0.4 AST 15 ALT 32 Alkaline Phosphatase 101 Troponin I 11 11 NT-Pro-B Natriuret Pep 181 Total Protein 6.6 Albumin 3.3 L 06/02/25 11:08 WBC RBC Hgb Hct MCV MCH MCHC RDW Plt Count MPV Immature Gran % Neutrophils % Lymphocytes % Monocytes % Eosinophils % Basophils % Nucleated RBC % Absolute Neutrophils Absolute Lymphocytes Absolute Monocytes Absolute Eosinophils Absolute Basophils PT INR APTT D-Dimer VBG pH VBG pCO2 VBG pO2 VBG HCO3 VBG Total CO2 VBG O2 Saturation VBG Base Excess Sodium Potassium Chloride Carbon Dioxide Anion Gap BUN Creatinine Est GFR (CKD-EPI 2020) Glucose Calcium Total Bilirubin AST ALT Alkaline Phosphatase Troponin I 9 NT-Pro-B Natriuret Pep Total Protein Albumin Last Vital Signs Temp 36.4 C L 06/02/25 12:25 Pulse 57 L 06/02/25 12:25 Resp 20 06/02/25 12:25 BP 169/89 H 06/02/25 12:25 Pulse Ox 91 L 06/02/25 12:25 PAWSS Have you Been Recently Intoxicated or Drunk Within the Last 30 days?: No Have you Ever Experienced Previous Episodes of Alcohol Withdrawal?: No Have you ever Experienced Withdrawal Seizures?: No Have you ever Experienced Delirium Tremens(DT)s?: No Have you ever undergone Alcohol Rehabilitation Treatment (i.e, inpt ot outpatient treatment programs)?: No Have you ever Experienced Blackouts?: No Have you ever Combined Alcohol with other Downers within the last 90 days?: No Have you ever Combined Alcohol with any other Substance of Abuse during the last 90 days?: No Positive Blood Alcohol level on Presentation? [PCS.BAL]: No Evidence of Increased Autonomic Activity (i.e. HR>120, tremor, sweating, agitation, nausea)?: No Result: 0 Time Spent Time spent with Patient: 40-54 minutes Time was spent: preparing to see the patient(eg.review tests), obtaining and/or reviewing separately otained hiistory, ordering medications,tests, procedures, referring, communicating with other health cna caregiver, indepentently interpreting results, counseling the patient and care coordination
[2025-06-02] MEDS: Furosemide 40 MG/4 ML VIAL IVP (18:31)
[2025-06-02] MEDS: amLODIPine 5 MG TAB PO (18:31)
[2025-06-02] MEDS: hydrALAZINE 20 MG/ML VIAL 10 MG IVP (21:11)
[2025-06-02 21:52] LABS: Hemoglobin A1C 8.3 % (<5.7)
[2025-06-02] MEDS: Insulin Aspart 300 UNITS/3 ML PEN SC (22:24)
[2025-06-03 03:45] VITALS: BP 176/96; PULSE 74; RESP 19; TEMP 36.5; O2SAT 90
[2025-06-03] MEDS: Acetaminophen 325 MG TAB 650 MG PO (06:41)
[2025-06-03 06:43] LABS: Abs Immature Grans 0.02 10^3/uL (0.0-0.06); HCT 46.1 % (40.0-50.0); HGB 15.1 g/dL (13.5-17.5); Immature Grans % 0.3 %; MCH 29.2 pg (27.0-33.0); MCHC 32.8 % (32.0-36.0); MCV 89 fL (80-95); MPV 9.3 fL (8.0-11.0); Platelet Count 203 10^3/uL (130-400); RBC 5.18 10^6/uL (4.36-5.78); RDW 12.4 % (11.8-14.1); RDW-SD 40.2 fL; WBC 7.36 10^3/uL (4.4-10.8)
[2025-06-03 06:45] VITALS: BP 173/89; PULSE 67; RESP 18; TEMP 36.3; O2SAT 91
[2025-06-03 07:01] LABS: Anion Gap 0.7 mmol/L (3-11); BUN 22 mg/dL (7-18); CO2 41.3 mmol/L (21.0-32.0); Calcium 9.4 mg/dL (8.5-10.1); Chloride 102 mmol/L (98-107); Estimated GFR 99.00 (mL/min/1.73m2); Glucose 202 mg/dL (74-106); Magnesium 2.2 mg/dL (1.8-2.4); Potassium 4.0 mmol/L (3.5-5.1); Sodium 144 mmol/L (136-145)
[2025-06-03 07:04] LABS: Calculated LDL 97 mg/dL (<100); Cholesterol 157 mg/dL (<200); HDL Cholesterol 46 mg/dL (>or=40); Triglyceride 71 mg/dL (<150)
[2025-06-03] MEDS: Enoxaparin 40 MG/0.4 ML SYR SC (08:30)
[2025-06-03] MEDS: Normal Saline Flush 10 ML SYR IVP (08:30)
[2025-06-03] MEDS: Insulin Aspart 300 UNITS/3 ML PEN SC ×2 (08:30→12:27)
[2025-06-03] MEDS: amLODIPine 5 MG TAB PO (08:31)
[2025-06-03] MEDS: Atorvastatin 40 MG TAB PO (08:31)
[2025-06-03] MEDS: Metoprolol CR 100 MG TABCR PO (08:31)
[2025-06-03] MEDS: hydroCHLOROthiazide 25 MG TAB PO (08:31)
[2025-06-03] MEDS: metFORMIN C.R. 500 MG TABCR 1000 MG PO (08:31)
[2025-06-03 08:41] VITALS: BP 173/94; PULSE 62; RESP 18; TEMP 36.7; O2SAT 92
--- NOTE | 2025-06-03 09:54 | INITIAL_ITS ---
Date of service: 06/03/25 Time of Service: 09:54 Care Management Initial Assmt Initial Assessment Reason for Hospitalization: Acute hypoxic respiratory failyre Functional Status/Living Situation Town of Residence: [facility] Advance Directives Advance Directives: Do you have an Advance Directive: N , 18:21 AD On File at [facility]: N 01/19/16, 17:25 Date Asked 06/02/25 06/02/25, 06:46 AD Date Reviewed COLST On File at [facility] COLST Date Scanned Code Status Resuscitation Status Full Code Insurance Coverage/Financial Issues Insurance: [employer] [facility] - [id number] Care Team Visit Care Team Role Provider Type Rosana Vargas NP MD [facility] STAFF PHYSICIAN Jackie Toussaint APRN Primary Care Provider NURSE PRACTITIONER Lucrecia Lewis RDN, FELISA Other Providers [employer] Jeevan Braga RDN Other Providers [employer] Tiffanie Pacheco MD Emergency Provider [facility] STAFF PHYSICIAN Milan Corado Admit Provider [facility] STAFF PHYSICIAN Attending Provider Discharge Plan: Patient was discharged prior to being assessed by Care Management. Social Determinants of Health Screening Social Determinants of health last assessed in clinic: 06/03/25 Will the Patient Participate in the Screening?: Yes Do you worry about having a steady place to live?: no Problems where you live: no known problems In the past 12 months, have you had to go without electric, gas, oil or water in your home?: no 1. Within the past 12 months, we worried whether our food would run out before we got money to buy more.: Never true 2. Within the past 12 months, the food we bought just didn't last and we didn't have money to get more.: Never true Has lack of transportation kept you from medical appointments or from doing things needed for daily living?: no Has anyone in your life made you feel unsafe or unsupported?: no How hard is it for you to pay for the very basics like food, housing, medical care, and heating? Would you say it is:: Not hard at all Do you want help finding or keeping work or a job?: I do not need or want help If for any reason you need help with day-to-day activities such as bathing, preparing meals, shopping, managing finances, etc., do you get the help you need?: I don?t need any help How often do you feel lonely or isolated from those around you?: Never Do you speak a language other than Yemeni at home?: No Does the patient want assistance with any of the above?: No PFSH All Active Problems (Updated 06/02/25 @ 18:27 by Rosana Vargas NP) Hyperlipidemia (Acute) Chronic hypercapnia (Acute) Acute hypoxic respiratory failure (Acute) CHF exacerbation (Acute) Hypertensive urgency (Acute) Diabetes (Chronic) Right hand pain (Acute) Rash (Acute) Follow-up exam (Acute) Preventative health care (Acute) Medical History (Updated 06/02/25 @ 18:27 by Rosana Vargas NP) HTN (hypertension) Prediabetes High cholesterol Surgical History (Updated 04/06/25 @ 15:49 by Gentry Brower MD) History of ureteroscopy S/P tendon repair Hx of colonoscopy Hx of hand surgery Social History Smoking/Tobacco Use Status: Never Smoking risk assessment performed?: Yes Alcohol Intake: current Alcohol Intake frequency: holidays/special occasions only Drug use: Rarely Substance use type: marijuana Details: denies use for couple of months. Housing: house Do you feel safe at home: Yes Do you feel safe in your relationship?: Yes
[2025-06-03 10:19] VITALS: BP 152/64; PULSE 61; RESP 17; TEMP 36.6; O2SAT 92
--- NOTE | 2025-06-03 11:19 | DSE_ITS ---
Date of service: 06/03/25 Time of Service: 11:19 DS: Diagnosis Discharge Diagnosis (1) Acute hypoxic respiratory failure: Status: Acute (2) CHF exacerbation: Status: Acute (3) Hypertensive urgency: Status: Acute (4) Diabetes: Status: Chronic (5) Hyperlipidemia: Status: Acute Discharge Plan Disposition Patient Disposition: Home Condition: Improving Discharge Details Reason For Visit: Acute Hypoxic Hypercarbic Respiratory Failure Admit Date/Time: 06/02/25 11:33 Admit Provider: Milan Corado Attending Provider: Milan Corado Primary Care Provider: Jackie Toussaint Hospital Course Hospital Course: Hospital Course: Mr. Lu was admitted with acute exertional dyspnea over 2?3 days. He was found to be in hypertensive urgency with BP of 203/100, moderate bilateral LE edema, and POCUS evidence of reduced ejection fraction. No orthopnea, PND, or chest pain reported. Initial management included IV Lasix 20 mg and Labetalol 20 mg in the ED. He was placed on fluid and sodium restriction, with daily weights and close monitoring of oxygenation. He remained hemodynamically stable during his admission. A formal echocardiogram showed EF of 60%, indicating improved function relative to bedside findings. 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 Blood glucose was elevated (peak 207), though he was asymptomatic. Dapagliflozin held initially due to concern for volume depletion but later resumed when renal function remained stable. Discharge Medications: Continued Home Medications: * Metoprolol succinate 100 mg PO daily * Metformin 1000 mg PO daily * Atorvastatin 40 mg PO daily * Dapagliflozin 5 mg PO daily (monitor for dehydration/renal function) * Hydrochlorothiazide 25 mg PO daily New Medications: * Torsemide 10 mg PO daily (switch from IV Lasix; for ongoing diuresis) * Amlodipine 5 mg PO daily (for BP control) Significant Labs on Admission: * Glucose: 207 mg/dL * Troponin I: Stable, peaked at 11 ng/L, no dynamic change * NT-ProBNP: 181 pg/mL * VBG: pCO2 65?67, O2 Sat 83?91% on admission * Creatinine: 0.7 mg/dL * A1c: Increased from 8.1 in March to 8.3. Disposition: * Discharged home in stable condition * Alert, oriented, ambulating without acute symptoms Follow-Up Plans: * Primary Care (Jackie Toussaint, [facility]) within 1 week * Cardiology for heart failure management and review of echocardiogram * Recommend repeat labs in 1 week: BMP * Monitor weights, BP, glucose daily at home * Continue sodium and fluid restriction Recommendations for Follow Up Recommended tests to be ordered by follow up provider: EYAD in 1 week Home Meds and New Rx's Prescriptions: New amlodipine 5 mg Tablet 5 mg PO DAILY Qty: 30 0RF torsemide 10 mg tablet 10 mg PO DAILY Qty: 30 0RF Continued amlodipine 10 mg tablet 10 mg PO DAILY Qty: 90 3RF atorvastatin 40 mg tablet 40 mg PO DAILY Qty: 90 3RF metformin 500 mg tablet extended release 24 hr 1,000 mg PO DAILY Qty: 60 3RF (DME) blood-glucose meter [FreeStyle Lite Meter] Kit See Rx Instructions .Route Qty: 1 0RF Rx Instructions: Check Blood sugars daily (DME) FreeStyle Lite Strips Strip See Rx Instructions .Route Qty: 100 3RF Rx Instructions: Check blood sugar daily (DME) lancets [FreeStyle Lancets] 28 gauge misc See Rx Instructions .Route Qty: 100 3RF Rx Instructions: Check blood sugar daily dapagliflozin propanediol [Farxiga] 5 mg tablet 5 mg PO QAM Qty: 30 3RF hydrochlorothiazide 25 mg tablet 25 mg PO DAILY Qty: 90 1RF metoprolol succinate 100 mg tablet extended release 24 hr 100 mg PO DAILY Discharge Instructions Instructions: Heart Failure, Adult (DC), Amlodipine, Torsemide Referrals: Jackie Toussaint APRN [Primary Care Provider, [facility]] Referral Note: 1-2 weeks post hospitalization for CHF exacerbation and hypertension. Started on amlodipine and torsemide - continued other meds - recommend BMP in 1 week. Consider dc HCTZ and increase torsemide. A1C increased to 8.3 from 8.1 in March. Activity:: Activity as Tolerated Equipment/Supplies:: No Equipment Needed Diet:: Diabtetic Discharge Orders Discharge Orders: Discharge Order (Routine); Ordered 06/03/25 Ordered By: Rosana Vargas DS: Summary Time Spent with Patient providing and/or coordinating discharge services: Greater than 30 minutes Status at Discharge Functional status at discharge: independent ambulation Overall status at discharge: patient is back to baseline Mental Status: mental status grossly normal Speech and Movement: speech and movement normal Mood: congruent mood Affect: normal affect Exam Narrative Exam Narrative: Constitutional: Well-nourished, NAD, obese HEENT: PERRL, MMM, no lesions Neck: No JVD, trachea midline CV: Regular rate and rhythm, +S1/S2, 2+ peripheral pulses Resp: Clear to auscultation bilaterally, no wheezes, rales, or rhonchi Abdomen: Soft, NT, ND Extremities: No edema today, no calf tenderness Neuro: CN II?XII intact, no focal deficits Skin: Warm, dry Psych: Alert, appropriate affect Psych Mental Status: mental status grossly normal Speech and Movement: speech and movement normal Mood: congruent mood Affect: normal affect DS: Data Vitals/I&O Vitals and I&O: Vital Signs Temperature 36.6 C 06/03/25 10:19 Temperature Source Temporal Artery Scan 06/03/25 10:19 Pulse 61 06/03/25 10:19 Pulse Rhythm Regular 06/02/25 13:16 Pulse 53 L 06/02/25 11:50 Respiratory Rate 17 06/03/25 10:19 Respiratory Effort Non-Labored 06/02/25 13:16 Respiratory Depth Normal 06/02/25 13:16 Respiratory Pattern Normal 06/02/25 13:16 Blood Pressure 152/64 H 06/03/25 10:19 Blood Pressure Mean 93 06/03/25 10:19 Blood Pressure Position Sitting 06/02/25 06:52 Pulse Oximetry 92 06/03/25 10:19 Oxygen Delivery Method Room Air 06/03/25 10:19 Oxygen Flow Rate 0 06/03/25 10:19 Pain Level 0 06/03/25 10:19 Comment rn notified 06/03/25 08:41 Intake & Output 06/02/25 06/02/25 06/03/25 11:59 23:59 11:59 Output Total 1475 / 1475 800 / 800 Balance -1475 / -1475 -800 / -800 Weight 136.078 kg 133.6 kg 132.5 kg Output: Urine 1475 / 1475 800 / 800 Other: Urine Color Yellow Yellow Urine Appearance Clear Clear Urine Odor None Stool Size Small Stool Characteristics Soft Data Completed and Pending Labs on day of discharge: Labs from last 24 hours 06/03/25 06/02/25 06/02/25 06:10 20:30 11:08 WBC 7.36 RBC 5.18 Hgb 15.1 Hct 46.1 MCV 89 MCH 29.2 MCHC 32.8 RDW 12.4 Plt Count 203 MPV 9.3 Immature Gran % 0.3 Neutrophils % 76.9 Lymphocytes % 12.5 Monocytes % 6.9 Eosinophils % 2.9 Basophils % 0.5 Nucleated RBC % 0.0 Absolute Neutrophils 5.66 Absolute Lymphocytes 0.92 L Absolute Monocytes 0.51 Absolute Eosinophils 0.21 Absolute Basophils 0.04 Sodium 144 Potassium 4.0 Chloride 102 Carbon Dioxide 41.3 H Anion Gap 0.7 L BUN 22 H Creatinine 0.9 Est GFR (CKD-EPI 2020) 99.00 Glucose 202 H Hemoglobin A1c 8.3 H Calcium 9.4 Magnesium 2.2 Troponin I 9 Triglycerides 71 Total Cholesterol 157 LDL Cholesterol, Calc 97 HDL Cholesterol 46 PFSH All Active Problems (Updated 06/02/25 @ 18:27 by Rosana Vargas NP) Hyperlipidemia (Acute) Chronic hypercapnia (Acute) Acute hypoxic respiratory failure (Acute) CHF exacerbation (Acute) Hypertensive urgency (Acute) Diabetes (Chronic) Right hand pain (Acute) Rash (Acute) Follow-up exam (Acute) Preventative health care (Acute) Medical History (Updated 06/02/25 @ 18:27 by Rosana Vargas NP) HTN (hypertension) Prediabetes High cholesterol Surgical History (Updated 04/06/25 @ 15:49 by Gentry Brower MD) History of ureteroscopy S/P tendon repair Hx of colonoscopy Hx of hand surgery Social History Smoking/Tobacco Use Status: Never Smoking risk assessment performed?: Yes Alcohol Intake: current Alcohol Intake frequency: holidays/special occasions only Drug use: Rarely Substance use type: marijuana Details: denies use for couple of months. Housing: house Do you feel safe at home: Yes Do you feel safe in your relationship?: Yes Time Spent with Patient Time Spent with Patient: 45-69 minutes Time was spent: preparing to see the patient(eg.review tests), ordering medications,tests, procedures, referring, communicating with other health prompt care rn, indepentently interpreting results, counseling the patient and care coordination
[2025-06-03 11:40] VITALS: BP 178/89; PULSE 60; RESP 18; TEMP 36.6; O2SAT 92
--- NOTE | 2025-06-03 12:33 | W.INDIABCONS ---
Date of service: 06/03/25 Time of Service: 12:30 Diabetes Inpatient Consult Reason for Visit: Diabetes Education Consult DESCRIPTION/ASSESSMENT: Was able to visit with Froy shortly before his discharge. He was treated for acute hypoxic respiratory failure, CHF exacerbattion and HTN. New DX of DMII as well this admission with A1C 06/02 >8. Hitesh denies having diabetes in the past, although I see an A1C over 8 this last May as well. He states he knows next to nothing about managing glucose. 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 INTERVENTION: pt being discharged - encouraged outpatient services to support his goal to better manage glucose - gave pt my contact info PLAN: will remain available for outpatient education Time Spent in Nutritional Counseling and Treatment: 10 min
--- NOTE | 2025-06-03 16:39 | PDOC.CMDIS ---
Date of service: 06/03/25 Time of Service: 16:39 LACE Index Scoring Tool Questions: Length of Stay (in days): 1 E.D. Visits: 1 Care Management Discharge Plan Reason for Hospitalization: Hypoxic Respiratory Failure Discharge Plan: Froy is discharged home via private vehicle with family. Pt will follow up with community providers and his discharge plan of care as directed. No new services were ordered prior to discharge. Patient/Family Education Needs: Review discharge instructions, and plan to follow up with community providers. Discuss ask me three.
== END 2025-06-03 13:06 | disposition home or self-care (01) ==
LOC: ER 11:17 → MS 12:17
PROVIDERS: Student in an Organized Health Care Education/Training Program; Admitting Provider Family Medicine; Emergency Provider Emergency Medicine; PCP Nurse Practitioner Family; Responsible Provider Nurse Practitioner Family; Visit Provider Family Medicine
DX: I11.0 Hypertensive heart disease with heart failure (principal); J96.01 Acute respiratory failure with hypoxia; I16.0 Hypertensive urgency; I50.23 Acute on chronic systolic (congestive) heart failure; J96.02 Acute respiratory failure with hypercapnia; E11.65 Type 2 diabetes mellitus with hyperglycemia; Z79.84 Long term (current) use of oral hypoglycemic drugs; Z82.49 Family history of ischemic heart disease and other diseases of the circulatory system; F12.90 Cannabis use, unspecified, uncomplicated; Z79.899 Other long term (current) drug therapy; E78.00 Pure hypercholesterolemia, unspecified
CPT/HCPCS: 00123; 36415; 80048; 80053; 80061; 82805; 93005; 93308; 96372; 96374; 96375; 96376; 99291; J1650; 71045; 83036; 83735; 83880; 84484; 85025; 85379; 85610; 85730; 93010; 93306; 99222; 99239; J0360; J1815; J1920; J1938

== ENCOUNTER 2025-06-04 03:00 | Emergency (ER) | payer OTHER, SELFPAY ==
[2025-06-04] VITALS (18 sets, daily range): BP systolic 164–197; BP diastolic 80–90; PULSE 50–65; RESP 11–18; TEMP 36.4; O2SAT 90–97
--- NOTE | 2025-06-04 03:15 | RT.EKG_ITS ---
APPROVED REPORT Exam: Resting ECG Reason for Exam: elevated BP Patient Location: E HR:54 bpm ECG Measurements Heart Rate 54 AXIS [place] 155 P 50 QRSd 91 QRS 39 QT 424 T 39 QTc 401 Conclusion Sinus bradycardia...rate< 60 Normal [place]/Interval Nonspecific ST-T changes There are no significant changes compared to prior EKG performed on 06/02/2025 at 06:49.
--- NOTE | 2025-06-04 03:16 | W.ED.GENAD ---
Discharge Plan Disposition Patient Disposition: Home Condition: Stable Discharge Details Clinical Impression: Elevated blood pressure reading with diagnosis of hypertension Primary Care Provider: Jackie Toussaint ED Provider: Rah Leons and New Rx's Prescriptions: Continued amlodipine 10 mg tablet 10 mg PO DAILY Qty: 90 3RF atorvastatin 40 mg tablet 40 mg PO DAILY Qty: 90 3RF metformin 500 mg tablet extended release 24 hr 1,000 mg PO DAILY Qty: 60 3RF (DME) blood-glucose meter [FreeStyle Lite Meter] Kit See Rx Instructions .Route Qty: 1 0RF Rx Instructions: Check Blood sugars daily (DME) FreeStyle Lite Strips Strip See Rx Instructions .Route Qty: 100 3RF Rx Instructions: Check blood sugar daily (DME) lancets [FreeStyle Lancets] 28 gauge misc See Rx Instructions .Route Qty: 100 3RF Rx Instructions: Check blood sugar daily dapagliflozin propanediol [Farxiga] 5 mg tablet 5 mg PO QAM Qty: 30 3RF metoprolol succinate 100 mg tablet extended release 24 hr 100 mg PO DAILY torsemide 10 mg tablet 10 mg PO DAILY Qty: 30 0RF Held hydrochlorothiazide 25 mg tablet 25 mg PO DAILY Qty: 90 1RF Hold Instructions: until follow up with PCP amlodipine 5 mg Tablet 5 mg PO DAILY Qty: 30 0RF Hold Instructions: until follow up with PCP Discharge Instructions Instructions: High Blood Pressure ED Additional Instructions: You were seen for concern with blood pressure given your recent admission. Your exam, EKG and labs are reassuring and your blood pressure came down with your morning medications. I would like you to continue the amlodipine 10mg every morning and the metoprolol 100mg every morning. Hold the amlodipine 5mg and the hydrochlorothiazide 25mg for now until you follow up with PCP next week. Do get the torsemide at the pharmacy and begin taking today. Follow up with PCP next week. Return to ED for severe headache, neurological change, chest pain, worsening shortness of breath, other concerns. Referrals: Jackie Toussaint APRN [Primary Care Provider, Family Practice] [facility] General Mode of arrival: ambulatory. Date/Time Provider Initiated Documentation: 06/04/25 03:03. Limitations to Documentation: no limitations. Information obtained by: patient, RN notes reviewed and old records reviewed. HPI Narrative: Patient presents to the ED with concern for elevated blood pressure and headache. Patient was seen in the ED on the for shortness of breath and found to have elevated blood pressure. He had evidence of fluid overload and was admitted for hypertensive urgency, CHF. He was diuresed overnight. He was discharged yesterday. He was to continue on torsemide which he has not picked up yet. He woke up early this morning with a headache which prompted him to check his blood pressure which was elevated once again. Headache resolved with some Excedrin. Denies any type of chest pain, neurologic change and no worsening shortness of breath. Related Data Home Medications ?Medication ?Instructions ?Recorded ?Confirmed metoprolol succinate 100 mg 100 mg PO DAILY 02/17/25 06/04/25 tablet,extended release 24 hr metformin 500 mg tablet,extended 1,000 mg (2 x 500 mg) PO DAILY #60 03/24/25 06/04/25 release 24 hr tabs amlodipine 10 mg tablet 10 mg PO DAILY #90 tabs 03/31/25 06/04/25 atorvastatin 40 mg tablet 40 mg PO DAILY cholesterol #90 tabs 03/31/25 06/04/25 blood sugar diagnostic (FreeStyle #100 ea 03/31/25 06/02/25 Lite Strips) blood-glucose meter (FreeStyle #1 ea 03/31/25 06/02/25 Lite Meter kit) lancets 28 gauge (FreeStyle #100 ea 03/31/25 06/02/25 Lancets) dapagliflozin propanediol 5 mg 5 mg PO QAM diabetes #30 tabs 04/08/25 06/04/25 tablet (Farxiga) hydrochlorothiazide 25 mg tablet 25 mg PO DAILY #90 tabs 04/17/25 06/04/25 Held on 06/04/25. Instructions: until follow up with PCP amlodipine 5 mg tablet 5 mg PO DAILY #30 tabs 06/03/25 06/04/25 Held on 06/04/25. Instructions: until follow up with PCP torsemide 10 mg tablet 10 mg PO DAILY #30 tabs 06/03/25 06/04/25 Previous Rx's ?Medication ?Instructions ?Recorded metformin 500 mg tablet,extended 1,000 mg (2 x 500 mg) PO DAILY #60 03/24/25 release 24 hr tabs amlodipine 10 mg tablet 10 mg PO DAILY #90 tabs 03/31/25 atorvastatin 40 mg tablet 40 mg PO DAILY cholesterol #90 tabs 03/31/25 blood sugar diagnostic (FreeStyle #100 ea 03/31/25 Lite Strips) blood-glucose meter (FreeStyle #1 ea 03/31/25 Lite Meter kit) lancets 28 gauge (FreeStyle #100 ea 03/31/25 Lancets) dapagliflozin propanediol 5 mg 5 mg PO QAM diabetes #30 tabs 04/08/25 tablet ([facility]) hydrochlorothiazide 25 mg tablet 25 mg PO DAILY #90 tabs 04/17/25 Held on 06/04/25. Instructions: until follow up with PCP amlodipine 5 mg tablet 5 mg PO DAILY #30 tabs 06/03/25 Held on 06/04/25. Instructions: until follow up with PCP torsemide 10 mg tablet 10 mg PO DAILY #30 tabs 06/03/25 Allergies Allergy/AdvReac Type Severity Reaction Status Date / Time No Known Allergies Allergy Verified 06/04/25 03:07 General Stated Complaint: Headache SAILAJA: 3 Exam Narrative Exam Narrative: Const: WDWN male in NAD. VS per triage. HEENT: NC/AT. Normal facial exam. Neck: Supple. Trachea midline. Lungs: Normal respiratory effort. Lungs are clear. Cor: RRR without murmur. Good radial pulses. Neuro: A+O x 3. Normal speech, mentation, gait. Cranial nerves II - XII grossly intact. No gross motor or sensory deficit. Ext: No C/C. 1+ BLE edema. Course Vital Signs Vital signs: Vital Signs Temperature 97.5 F L 06/04/25 03:03 Pulse 63 06/04/25 03:03 Respiratory Rate 18 06/04/25 03:03 Temperature 97.5 F L 06/04/25 03:03 Temperature Source Tympanic 06/04/25 03:03 Pulse 63 06/04/25 03:03 Respiratory Rate 18 06/04/25 03:05 Blood Pressure 189/90 H 06/04/25 03:05 Blood Pressure Mean 123 06/04/25 03:05 Blood Pressure Position Sitting 06/04/25 03:03 Pulse Oximetry 91 L 06/04/25 03:05 Oxygen Delivery Method Room Air 06/04/25 03:05 Oxygen Flow Rate 0 06/04/25 03:05 Medical Decision Making Patient presenting to ED with concern for elevated blood pressure. He woke up with a headache which prompted him to check his blood pressure. It was elevated similar to when he was here 2 days ago. He took Excedrin and his headache has resolved. Initial blood pressure here 189/90. No neurologic change, chest pain, worsening shortness of breath. I reviewed his presentation, admission and discharge. He was supposed to begin taking amlodipine and torsemide. However, he was already on amlodipine 10 mg. He was to continue his metoprolol and his hydrochlorothiazide. he had been diuresed with IV Lasix. He has not taken his morning doses which he usually takes around 5:30. Despite his elevated blood pressure given lack of evidence of endorgan damage I am not overly concerned at this time. His EKG this morning is unchanged compared to EKG 2 days ago. I we will check a BMP and magnesium given his diuresis during admission. Will give him his morning dose of metoprolol and amlodipine which he was on. Patient's BMP is stable. He has chronically elevated bicarb. Magnesium a little high. Blood pressure down, now 164/84. Will plan discharge home. I will have him hold his HCTZ and the amlodipine 5mg tab. Continue the metoprolol and amlodipine 10mg tab. Start the torsemide as previously instructed. Follow up with PCP this coming week. Return precautions provided. Medical Records Medical records reviewed: Yes I reviewed the patient's medical records. Medical records narrative: recent admission/discharge Lab Data Lab results reviewed: Yes I reviewed the patient's lab results. Lab results narrative: see [facility] ECG Data Attestation: I personally reviewed and interpreted this ECG (s) as follows: Prior ECG tracings: available for review Interpretation: see EKG/MDM [facility] All Active Problems (Updated 06/04/25 @ 04:25 by Rah Leon MD) Elevated blood pressure reading with diagnosis of hypertension (Acute) Chronic hypercapnia (Acute) Acute hypoxic respiratory failure (Acute) CHF exacerbation (Acute) Hypertensive urgency (Acute) Right hand pain (Acute) Rash (Acute) Follow-up exam (Acute) Preventative health care (Acute) Medical History Hyperlipidemia Diabetes HTN (hypertension) Surgical History History of ureteroscopy S/P tendon repair Hx of colonoscopy Hx of hand surgery Social History Smoking/Tobacco Use Status: Never Smoking risk assessment performed?: Yes Alcohol Intake: current Alcohol Intake frequency: holidays/special occasions only Drug use: Rarely Substance use type: marijuana Details: denies use for couple of months. Housing: house Do you feel safe at home: Yes Do you feel safe in your relationship?: Yes
[2025-06-04] MEDS: amLODIPine 10 MG TAB PO (03:38)
[2025-06-04] MEDS: Metoprolol CR 100 MG TABCR PO (03:38)
[2025-06-04 03:46] LABS: Anion Gap -0.1 mmol/L (3-11); BUN 21 mg/dL (7-18); CO2 41.1 mmol/L (21.0-32.0); Calcium 9.5 mg/dL (8.5-10.1); Chloride 101 mmol/L (98-107); Estimated GFR 102.58 (mL/min/1.73m2); Glucose 201 mg/dL (74-106); Magnesium 2.7 mg/dL (1.8-2.4); Potassium 4.1 mmol/L (3.5-5.1); Sodium 142 mmol/L (136-145)
== END 2025-06-04 04:39 | disposition home or self-care (01) ==
PROVIDERS: Emergency Provider Emergency Medicine; PCP Nurse Practitioner Family
DX: R51.9 Headache, unspecified (principal); I10 Essential (primary) hypertension; R06.89 Other abnormalities of breathing
CPT/HCPCS: 99283; 99284; 80048; 93005; 83735; 93010

== ENCOUNTER 2025-06-08 07:44 | Emergency (ER) | payer OTHER, SELFPAY ==
[2025-06-08] VITALS (38 sets, daily range): BP systolic 150–184; BP diastolic 59–135; PULSE 49–74; RESP 5–23; TEMP 36.7; O2SAT 89–96
--- NOTE | 2025-06-08 07:30 | RT.EKG_ITS ---
APPROVED REPORT Exam: Resting ECG Reason for Exam: sob Patient Location: E HR:54 bpm ECG Measurements Heart Rate 54 AXIS ME 151 P 51 QRSd 93 QRS 38 QT 407 T 65 QTc 385 Conclusion Sinus bradycardia...rate< 60 Sinus bradycardia. When compared to prior 06/04/25 ST changes have improved. WD
--- NOTE | 2025-06-08 08:00 | DI.RAD_ITS ---
Exam(s) XR CHEST 2V PA LATERAL EXAM: XR CHEST 2V PA LATERAL CLINICAL HISTORY: Chest pain TECHNIQUE: 2D digital imaging was performed of the chest. Three images were obtained. PA and lateral views were obtained. COMPARISON: CR LEFT RIBS TO INCLUDE CXR from 08/03/2009 CR XR PORTABLE CHEST AP from 06/02/2025 FINDINGS: MEDIASTINUM: Normal. HEART: Normal. PULMONARY VASCULATURE: Normal. LUNGS: Mild peribronchial thickening seen in the lower lobes, left greater than right. Atelectatic changes are seen in the lower lobes. PLEURAL SPACE: No pleural effusion or pneumothorax. BONE:Within normal limits for the patient's age. OTHER FINDINGS:Normal. IMPRESSION: 1. Peribronchial thickening in the lower lobes, left greater than right which may represent a bronchitis. 2. Atelectatic changes in the lower lobes. DATA REPOSITORY: RADIATION DOSE DELIVERED:
--- NOTE | 2025-06-08 08:14 | ED.GENADUL_ITS ---
Discharge Plan Disposition Patient Disposition: Home Condition: Stable Discharge Details Clinical Impression: Elevated blood pressure reading with diagnosis of hypertension, Chronic hypercapnia, Breath shortness, Mucus plugging of bronchi Primary Care Provider: Jackie Toussaint ED Provider: Trisha Samaniego Home Meds and New Rx's Prescriptions: Continued amlodipine 10 mg tablet 10 mg PO DAILY Qty: 90 3RF atorvastatin 40 mg tablet 40 mg PO DAILY Qty: 90 3RF metformin 500 mg tablet extended release 24 hr 1,000 mg PO DAILY Qty: 60 3RF (DME) blood-glucose meter [FreeStyle Lite Meter] Kit See Rx Instructions .Route Qty: 1 0RF Rx Instructions: Check Blood sugars daily (DME) FreeStyle Lite Strips Strip See Rx Instructions .Route Qty: 100 3RF Rx Instructions: Check blood sugar daily (DME) lancets [FreeStyle Lancets] 28 gauge misc See Rx Instructions .Route Qty: 100 3RF Rx Instructions: Check blood sugar daily dapagliflozin propanediol [Farxiga] 5 mg tablet 5 mg PO QAM Qty: 30 3RF hydrochlorothiazide 25 mg tablet 25 mg PO DAILY Qty: 90 1RF metoprolol succinate 100 mg tablet extended release 24 hr 100 mg PO DAILY amlodipine 5 mg Tablet 5 mg PO DAILY Qty: 30 0RF torsemide 10 mg tablet 10 mg PO DAILY Qty: 30 0RF Discharge Instructions Instructions: Albuterol, Shortness of Breath, Adult ED, High Blood Pressure ED Additional Instructions: As we discussed, your heart appears to be well today with no signs of stress or strain. No signs of fluid overload in your chest x-ray or your labs. However, I am concerned that some of your shortness of breath and chest tightness may be associated with some mucous plugging as well as some bronchial thickening. For this reason, you will need pulmonary function test in addition to the cardiac stress test and sleep test. I am concerned that your obstructive sleep apnea has been going untreated as this can cause increase in the symptoms. Please continue with a low-salt diet and trying to lose weight as this will also help with your breathing. Please continue with the medications as previously prescribed. Please keep your upcoming appoint with your primary care. Call tomorrow to discuss the test that were relayed to them today. If you develop any new or worsening symptoms please seek care urgently once again. Stand Alone Forms: Work Release Referrals: Jackie Toussaint APRN [Primary Care Provider, [facility]] Discharge Data Discharge Date/Time-TO BE ENTERED AT DEPARTURE: 06/08/25 11:28 HPI General Date/Time Provider Initiated Documentation: 06/08/25 07:47 . Limitations to Documentation: no limitations . Information obtained by: patient, RN notes reviewed and old records reviewed . History of Present Illness 59 year old M presents to the emergency department with the chief complaint of SOB, CP, described as mild and similar to prior episodes, Quality is described as other (chest feels tight), and is localized to the chest. Patient started experiencing this week(s) and it has been intermittent. No relieving factors improve symptom(s), Movement worsens symptoms . Patient notes chest pain, malaise and shortness of breath; denies cough, diaphoresis, fever/chills, loss of appetite, nausea/vomiting, rash, syncope and weakness. Patient did receive the following treatments prior to arrival, none Related Data Home Medications ?Medication ?Instructions ?Recorded ?Confirmed metoprolol succinate 100 mg 100 mg PO DAILY 02/17/25 0 06/08/25 tablet,extended release 24 hr metformin 500 mg tablet,extended 1,000 mg (2 x 500 mg) PO DAILY #60 03/24/25 06/08/25 release 24 hr tabs amlodipine 10 mg tablet 10 mg PO DAILY #90 tabs 03/0606/08/25 atorvastatin 40 mg tablet 40 mg PO DAILY cholesterol # 90 tabs 03/31/25 06/08/25 blood sugar diagnostic (FreeStyle #100 ea 03/31/2502/27 Lite Strips) blood-glucose meter (FreeStyle #1 ea 03/31/25 06/08/25 Lite Meter kit) lancets 28 gauge (FreeStyle #100 ea 03/31/25 06/08/25 Lancets) dapagliflozin propanediol 5 mg 5 mg PO QAM diabetes #3 0 tabs 04/08/25 06/08/25 tablet ([facility]) hydrochlorothiazide 25 mg tablet 25 mg PO DAILY #90 ta bs 04/17/25 06/08/25 amlodipine 5 mg tablet 5 mg PO DAILY #30 tabs 06/0306/08/25 torsemide 10 mg tablet 10 mg PO DAILY #30 tabs 07/04/25 Previous Rx's ?Medication ?Instructions ?Recorded metformin 500 mg tablet,extended 1,000 mg (2 x 500 mg) PO DAILY #60 03/24/25 release 24 hr tabs amlodipine 10 mg tablet 10 mg PO DAILY #90 tabs 03/06 05/29 atorvastatin 40 mg tablet 40 mg PO DAILY cholesterol # 90 tabs 03/31/25 blood sugar diagnostic (FreeStyle #100 ea 03/31/25 Lite Strips) blood-glucose meter (FreeStyle #1 ea 03/31/25 Lite Meter kit) lancets 28 gauge (FreeStyle #100 ea 03/31/25 Lancets) dapagliflozin propanediol 5 mg 5 mg PO QAM diabetes #3 0 tabs 04/08/25 tablet (Farxiga) hydrochlorothiazide 25 mg tablet 25 mg PO DAILY #90 ta bs 04/17/25 amlodipine 5 mg tablet 5 mg PO DAILY #30 tabs 06/03 torsemide 10 mg tablet 10 mg PO DAILY #30 tabs 05/07 Allergies Allergy/AdvReac Type Severity Reaction Status Date / Time No Known Allergies Allergy Verified 06/08/25 07:50 General Stated Complaint: Chest Pain SAILAJA: 2 Review of Systems Constitutional Constitutional: Reports as per HPI, Denies chills, Denies fever(s), Denies headache(s) and Denies poor appetite Eyes Eyes: Denies change in vision ENT Ears, Nose, Mouth, and Throat: Denies dizziness and Denies headache(s) Cardiovascular Cardiovascular: Reports as per HPI Respiratory Respiratory: Reports as per HPI, Denies chest congestion, Denies cough, Denies pain on inspiration and Denies pain with cough Gastrointestinal Gastrointestinal: Reports as per HPI, Denies abdominal pain, Denies diarrhea, Denies nausea and Denies vomiting Genitourinary Genitourinary: Denies system reviewed and no additional complaints, except as documented (denies change in urinary habits) Musculoskeletal Musculoskeletal: Reports as per HPI and Denies back pain Integumentary/Breasts Skin/Breast: Reports as per HPI and Denies rash Neurologic Neurologic: Reports as per HPI, Denies dizziness and Denies headache(s) Exam Const General: cooperative, healthy appearing, comfortable, no acute distress and well developed Nutritional Appearance: well nourished and obese Orientation: alert, awake and oriented x3 Chest Chest: normal inspection of the chest, normal palpation of entire chest wall and no crepitus Resp Effort & Inspection: normal respiratory effort, able to speak in complete sentences and no respiratory distress Auscultation: clear to auscultation bilaterally, no rales, no rhonchi and no wheezes Cardio Rate: regular rate Rhythm: regular rhythm Heart Sounds: S1 normal and S2 normal GI Inspection: normal to inspection, no edema and non-distended Palpation: soft, not rigid and nontender Skin General skin exam: no rashes or lesions noted Trauma: no lacerations or abrasions Neuro General: patient alert, patient awake and patient oriented x3 Cognition: normal cognition Speech: speech normal Gait: normal gait Extrem General: normal to inspection, capillary refill normal, no calf tenderness, normal gait, edema Laterality: bilateral (mild, non-tender) and other (2+ distal pulses) Course Vital Signs Vital signs: Vital Signs Temperature 36.7 C 06/08/25 07:46 Pulse 57 L 06/08/25 07:46 Respiratory Rate 13 06/08/25 07:46 Blood Pressure 160/59 H 06/08/25 07:46 Pulse Oximetry 95 06/08/25 07:46 Temperature 36.7 C 06/08/25 07:46 Temperature Source Oral 06/08/25 07:46 Pulse 51 L 06/08/25 08:00 Pulse 51 L 06/08/25 08:00 Respiratory Rate 16 06/08/25 08:03 Respiratory Effort Non-Labored 06/08/25 08:03 Respiratory Depth Normal 06/08/25 08:03 Respiratory Pattern Normal 06/08/25 08:03 Blood Pressure 160/59 H 06/08/25 07:46 Blood Pressure Position Supine 06/08/25 07:46 Pulse Oximetry 93 06/08/25 08:00 Oxygen Delivery Method Room Air 06/08/25 07:46 Oxygen Flow Rate 0 06/08/25 07:46 Pain Level 0 06/08/25 08:03 Medical Decision Making Patient is a pleasant 59 year old gentleman presenting today with c/c of recurrent SOB and new onset CP. Patient has been here several times over the past few weeks associated with congestive heart failure diagnosis. Patient was admitted, will review these notes, in which time he received diuresis and did improve. Hypertension has been a consistent issue for the patient. He denies any previous issues with CHF although he does report that at home he had been noting some lower extremity edema but nothing to this extent that he had been having prior to coming in before his admission. At the time he was admitted, he reports that he was much more short of breath. While he continues to have some shortness of breath, that seems to be more exertionally based at this point. States he returned to work today after being off last week due to his illness and that be he became short of breath with minimal exertion, states that he was doing small amount of walking, and he also developed some chest tightness. He is not having any pain rating into the back. He states that he did have just a few seconds of a left arm tingling but this is resolved and spontaneously. States that the symptoms overall have improved, particularly with being sedentary. He has not had any previous history of cardiac disease prior to his recent admission, but does state that his mother has had NH, has needed multiple stents, unclear what age. Patient did have some medication change of the past few weeks including adding a diuretic, atorvastatin and increasing amlodipine. Past medical history significant for hyperlipidemia, diabetes and hypertension. On exam, patient appears non-toxic. Lungs are clear, normal cardiac exam. Mild edema BLE edenam, no calf pain, negative Homanns sign. 2+ distal pulses in extremities. Recent admission was for HTN urgency with SBP in the 200s, also had BLE edema, decreased EF on bedside evaluation. Patient had been sent home with sodium restrictions, discussion with yelena suggests he is following these recommendations. Reviewed recent echo which was completed 6 days ago, they do note that the study was technically difficult. They note mild concentric left ventricular hypertrophy but EF is maintained at 60% with normal wall motion. Right ventricle normal, mildly enlarged left atrium, right atria normal size. Valvular disease was difficult to evaluate for given the technical issues with the study itself. Reviewed recent labs. No point to the patient have any leukocytosis. Normal coags. Patient was retaining CO2 with CO2 max of 67. During admission, BNP max 181. Started Lasix 2 days ago. ECG obtained, reviewed by myself and ED attending, no acute ischemic changes. Reviewed medication list as possible cause of his sudden onset/worsening of CHF. Amlodpiine could be associated with the increase in BLE edema, paticularly given the increase in dosing. Some symptoms could also be associated with his metformin- in particular, the dyspnea. considered ddx- patient reports that this CHF is new and fairly sudden onset. [facility] family hx of ACS, considered this, particularly with the new onset CP. Also considered PE given the chronic SOB, hypercapnia over recent visits. No hx of smoking. No ETOH. No abdominal pain. Not consistent with dissection, AAA, infectious etiology, pancreatitis, esophageal cause. Reviewing recent labs, no indication of DKA or DIEUDONNE. Glucose has been poorly controlled over recent visits, often in mony 200s. Reviewed CXR, appears improved from previous. Labs reviewed. No leukocytosis. Tropoinin negative. No elevation to BNP. Assessed TSH with possibility of new cardiac etiology, this was normal. CT scan reviewed by radiologist. No evidence suggest pulmonary embolism or aneurysm. He does have peribronchial thickening and mucous plugging in the lower lobes which they are concerned may represent bronchitis. No focal consolidation or infiltrates. I discussed these findings with the patient. He has had no history of smoking, no previous diagnosis of COPD, asthma or other respiratory issue. He is not had any fevers, chills, coughing. However, with this mucous plugging, in the setting of his presentation, I do feel that management for this would be appropriate and we will begin the patient on albuterol, road test and reevaluate. Road test normal, no desaturations. Spoke with RT regarding the patients acute on chronic symptoms and lack of real diagnosis- she advised this could be associated with obesity associated hypoventilation, particularly the hypercarbia. We also discussed possible exposure at work elading to this increased symptoms this morning and the bronchial thickening and sputum production- she will evaluate the patietn further and we will discuss again. Obesity, hypoventilation syndrome. Has new house that is old- dirty and has been cleaning which si setting him off. He is agreeable to PFT. Has hx of KRYSTIN but no treatment currently. Patient needs PFT, sleep study and stress test. consider pulmonary rehab after PFT. Called PCP office, he has f/u June 15. Relayed the need for the above tests and have asked that they discuss further. On reevaluation of the patient, he is feeling improved. His O2 has been stable. He feels comfortable to go home. He quesitons if some of the sytmpoms are returning d/t activity at work and still needing to recover from recent admission. Will give work note. als odiscussed identifying triggers for the respiratory component. He has been walking outside without as many symptoms despite being more acitve. We discussed continuing this type of activity, likely away from pulmonary triggers. Albuterol sent home with him to be used for symptomatic management. Strict return precautions were discussed. He will continue with previous prescribed medications. All of their questions and concerns were addressed, he is in agreement with this plan. PFSH All Active Problems (Updated 06/08/25 @ 11:13 by NOELLE Parra) Mucus plugging of bronchi (Acute) Breath shortness (Acute) Elevated blood pressure reading with diagnosis of hypertension (Acute) Chronic hypercapnia (Acute) Acute hypoxic respiratory failure (Acute) CHF exacerbation (Acute) Hypertensive urgency (Acute) Right hand pain (Acute) Rash (Acute) Follow-up exam (Acute) Preventative health care (Acute) Medical History Hyperlipidemia Diabetes HTN (hypertension) Surgical History History of ureteroscopy S/P tendon repair Hx of colonoscopy Hx of hand surgery Social History Smoking/Tobacco Use Status: Never Smoking risk assessment performed?: Yes Alcohol Intake: current Alcohol Intake frequency: holidays/special occasions only Drug use: Rarely Substance use type: marijuana Details: denies use for couple of months. Housing: house Do you feel safe at home: Yes Do you feel safe in your relationship?: Yes
[2025-06-08 08:16] LABS: Abs Immature Grans 0.03 10^3/uL (0.0-0.06); HCT 48.3 % (40.0-50.0); HGB 15.5 g/dL (13.5-17.5); Immature Grans % 0.4 %; MCH 28.7 pg (27.0-33.0); MCHC 32.1 % (32.0-36.0); MCV 89 fL (80-95); MPV 9.1 fL (8.0-11.0); Platelet Count 222 10^3/uL (130-400); RBC 5.41 10^6/uL (4.36-5.78); RDW 12.3 % (11.8-14.1); RDW-SD 40.4 fL; WBC 7.35 10^3/uL (4.4-10.8)
--- NOTE | 2025-06-08 08:30 | DI.CT_ITS ---
Exam(s) CT CHEST PE CTA EXAM: CT CHEST PE CTA CLINICAL HISTORY: CP, SOB, LE edema. TECHNIQUE: Imaging Protocol: Axial CT angiography was performed with multi- slice acquisition and multi-planar and/or 3D reconstructions. Lung Computer Aided Detection (CAD) was utilized. CONTRAST MATERIAL: Intravenous: Omnipaque 350 contrast volume:100 mL COMPARISON: CT CT ABDOMEN PELVIS WO from 02/17/2025 CR XR CHEST 2V PA LATERAL from 06/08/2025 FINDINGS: Tracheobronchial tree: There is mild peribronchial thickening particularly in the lower lobes. There is mucous plugging seen in the left lower lobe. No bronchiectasis. Pulmonary parenchyma: There are atelectatic changes seen in the lungs. No focal consolidating infiltrates are present. There are calcified granuloma present. Pulmonary Arteries: No evidence of filling defect to suggest pulmonary emboli. Mediastinum and Allie: No dominant adenopathy or fluid collection. The esophagus is unremarkable. There is a tiny hiatal hernia present. Calcified lymph nodes are seen in the subcarinal region consistent with prior granulomatous disease. Pleura: No effusion or pneumothorax. Heart: Cardiomegaly. Mild single-vessel coronary artery calcification is present. No pericardial effusion. Aorta: Thoracic aorta non-dilated. Due to the timing of the bolus the thoracic aorta is suboptimally opacified. Atherosclerotic calcification is present. Upper abdomen: Unremarkable. Soft tissues: Gynecomastia is present. Bones: Within normal limits for the patient's age.There are old healed left rib fracture deformities. IMPRESSION: 1. No evidence of pulmonary embolism or aneurysm. 2. Mild peribronchial thickening and mucous plugging in the lower lobes. This may represent a bronchitis. 3. There are no focal consolidating infiltrates present. RADIATION DOSE DELIVERED: 260.53mGy.cm Total DLP DATA REPOSITORY: All CT scans at this facility are submitted to the National Radiology Data Registry (NRDR) Dose Index Registry (DIR) with the [employer] [place] [employer] (ACR). RADIATION OPTIMIZATION: All CT scans at this facility use at least one of these dose optimization techniques: automated exposure control; mA and/or kV adjustment per patient size (includes targeted exams where dose is matched to clinical indication); or iterative reconstruction.
[2025-06-08 08:41] LABS: ALT 27 U/L (16-63); AST 12 U/L (15-37); Albumin 3.7 g/dL (3.4-5.0); Alkaline Phosphatase 114 U/L (46-116); Anion Gap 1.0 mmol/L (3-11); BUN 27 mg/dL (7-18); Bilirubin, Total 0.5 mg/dL (0.2-1.0); CO2 38.0 mmol/L (21.0-32.0); Calcium 9.0 mg/dL (8.5-10.1); Chloride 101 mmol/L (98-107); Estimated GFR 99.00 (mL/min/1.73m2); Glucose 208 mg/dL (74-106); Magnesium 2.4 mg/dL (1.8-2.4); NT-proBNP 87 pg/mL (<300); Potassium 4.5 mmol/L (3.5-5.1); Sodium 140 mmol/L (136-145); Total Protein 7.6 g/dL (6.4-8.2); Troponin I 9 ng/L (<or=76)
[2025-06-08] MEDS: Normal Saline - Diluent 50 ML VIAL IJ (08:53)
[2025-06-08] MEDS: Omnipaque 350 MG/ML 100 ML BTL IJ (08:53)
[2025-06-08] MEDS: Furosemide 40 MG/4 ML VIAL IVP (09:03)
[2025-06-08] MEDS: Albuterol HFA 8 GM 60 PUFF INH IH (09:49)
[2025-06-08 10:13] LABS: Troponin I 8 ng/L (<or=76)
[2025-06-08 11:46] LABS: TSH (W/Ref FT4) 2.22 uIU/mL (0.36-3.74)
[2025-06-08 11:47] LABS: Troponin I 8 ng/L (<or=76)
== END 2025-06-08 11:28 | disposition home or self-care (01) ==
PROVIDERS: Emergency Provider Physician Assistant; PCP Nurse Practitioner Family
DX: J45.909 Unspecified asthma, uncomplicated (principal); I10 Essential (primary) hypertension; R00.1 Bradycardia, unspecified; E78.5 Hyperlipidemia, unspecified; E11.9 Type 2 diabetes mellitus without complications; Z79.84 Long term (current) use of oral hypoglycemic drugs; Z79.899 Other long term (current) drug therapy
CPT/HCPCS: 36415; 71275; 80053; 87426; 93005; 96374; 99285; 71046; 83735; 83880; 84443; 84484; 85025; 93010; 99284; J1938; J3490

== ENCOUNTER 2025-06-16 04:32 | Outpatient (CLI) | payer OTHER, SELFPAY ==
--- NOTE | 2025-06-16 10:08 | W.DIABETESNO ---
Date of service: 06/16/25 Time of Service: 09:00 Diabetes Note Reason for Visit: referral for diabetes ed/mgt NOTE: Froy recently with inpatient stay at [facility] and following up today to review nutrition guidance for getting glucose closer to target. A1c was 8.3 06/02/25. Home Rx include meformin and Farxiga Not active currently. States he has been SOB with minimal exertion - states he has a lot of mucous plugging. - would suggest maybe NAC to help in this area? 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 Gave hime 10-day sample of CGM and will offer to meet up in 10 days to review ambulatory glucose profile. For now we reviewed carb choices and trying to stay around 13servings per day with servings coming from high quality choices that are high in fiber and on the less processed end of the line (steel cut oats instead of instant flavored oats as an example). We discussed meeting protein goal (~150g per day) with only animal choices might put him over daily kcals and suggested whey protein/collagen protein along with more plant based protein choices like legumes to help with fiber intake as well as offer some protein towards his goals. Stressed low added sugar, adequate fiber and meeting protein needs with more plants as the main changes that will definitely result in lower glucose spikes - reviewed balanced plate method as well. He has supporting handout and I emailed Froy his macro information and how to plug into AI site for help menu planning around ~2100kcals, 210g TCm, 150g protein, 65g fat. Will f/u when CGM times out for follow up Time Spent in Nutritional Counseling and Treatment: 55 min
== END 2025-06-16 04:33 | disposition home or self-care (01) ==
LOC: DS 04:32
PROVIDERS: PCP Nurse Practitioner Family; Visit Provider Dietitian, Registered
DX: E11.9 Type 2 diabetes mellitus without complications (principal)
CPT/HCPCS: 00123; 97802

== ENCOUNTER 2025-06-18 15:48 | Outpatient (CLI) | payer OTHER, SELFPAY ==
--- NOTE | 2025-06-18 05:45 | ETT_ITS ---
APPROVED REPORT Exam: Exercise Treadmill Patient Location: Out-Patient Room/Bed: Stress Nurse: Jass Monreal RN Ordering Provider:DANAY BELTRÁN, Contact Number: [phone] BMI: 48.08 Baseline Rhythm: Sinus Rhythm. Comment: Diffuse T wave changes compared to previous EKG. Indications: SOB. Medical History Medical History: HLD; HTN; Chest Pain; CHF; BLE Edema; EF 60%; Mucus Plugging of Bronchi; Acute Hypoxic Respiratory Failure. Cardiac Medications: Metoprolol Succinate; Metformin; Amlodipine; Atorvastatin; Farxiga; Hydrochlorothiazide; Torsemide. Allergies: None. Cardiac Risk Factors: Family Hx; HLD; HTN; Diabetes Mellitus; Obesity. Previous Cardiac Procedures: None. Pretest Chest Pain Characteristics: None. Exercise History: Indeterminate. Physical Disabilities: None. Lung Sounds: Clear bilaterally throughout, anterior and posterior. Heart Sounds: S1 and S2 auscultated. Stress Test Details Test: Exercise stress testing was performed using a Sourav protocol. Rest Stress HR Resting HR Supine: 78 bpm Max Heart Rate (APMHR): 162 bpm Resting HR Standin bpm Target HR (85% APMHR): 138 bpm Max HR Achieved: 140 bpm % of APMHR: 86 Recovery HR: 91 bpm HR response to stress: Normal HR response to stress. BP Resting BP Supine: 170/100 mmHg Resting BP Standin/98 mmHg Max BP: 258/50 mmHg Recovery BP: 162/98 mmHg BP response to stress: Abnormal hypertensive response to stress. ECG Resting ECG: Sinus Rhythm. Ectopy: None. Stress ECG: Sinus Tachycardia. ST Change: Horizontal ST depression, Downsloping ST depression. Lead(s): II, III, aVF Stage: [address] Deviation: 3 mm Arrhythmia: None. Comment: ST deviation of 1-3 mm. Recovery ECG: Sinus Rhythm. Recovery ST Change: Horizontal ST depression, Downsloping ST depression. Lead(s): II, III, aVF Recovery ST Deviation: 3 mm Recovery Arrhythmia: None. Comment: ST deviation of 1-3 mm. Clinical Reason for Termination: Target HR Achieved, Dyspnea. Stress Symptoms: Dyspnea. Exercise duration: 05 min56 sec Highest Stage Reached: Stage 2: 2.5 mph at 12% grade. Exercise capacity: 7.05 METs Angina Score: None Rate Pressure Product: [id number] Stress ECG Conclusion 1. Resting electrocardiogram showed sinus rhythm, minor diffuse ST depression 2. Patient exercised on the Sourav protocol completed workload of 7 METS limited by shortness of breath 3. Normal heart rate response to exercise. Hypertensive blood pressure response to exercise. The patient achieved 86% of maximal predicted heart rate for age 4. At peak exercise there was additional [address] depression consistent with myocardial ischemia 5. Suggest repeat with imaging if clinically indicated Critical Notification Critical Value: Yes Physician Notified Date: 06/18/2025 Time: 1512 Physician Name: Cara Ron MD Response Time: 2 minutes. Stress Test Summary STAGE Time (mins) Speed (mph) Grade (%) HR BP SpO2 SYMPTOMS METS Supine 78 170/100 93 Pt. is asymptomatic. Standing 80 170/98 93 Pt. is asymptomatic. 1 3 1.7 10 126 176/70 87 Pt. c/o mild to moderate shortness of breath. 4.5 2 6 2.5 12 140 90 Pt. c/o moderate shortness of breath. 7 1 min recovery 120 258/50 95 Pt. c/o moderate shortness of breath. 3 min recovery 96 190/90 93 Pt. c/o mild shortness of breath. 6 min recovery 91 162/98 94 Pt. denies any shortness of breath; all symptoms have resolved back to baseline. Prior to beginning the test, pt. was noted to have diffuse T wave changes compared to his previous EKG. At 1513 on 06/18/25, RN notified Dr. Ron of pt.'s diffuse T wave changes, showed Dr. Ron the current and previous EKG's, and notified Dr. Ron of pt.'s elevated resting BP. At 1515 on 06/18/25, Dr. Ron responded to the RN and stated that it was ok to go ahead with the test. Pt. performed an ETT; ETT was stopped due to pt. achieving higher than his target heart rate, pt. experiencing moderate shortness of breath, and pt. request to stop the test. Shortness of breath resolved back to baseline prior to pt. leaving the Stress Lab. Pt. was noted to have diffuse T wave inversion with horizontal and downsloping ST depression of 1-3 mm in leads II, III, and aVF during exercise and recovery, with resolution of ST depression by the end of the test. Pt. was conversing pleasantly with nursing staff upon leaving the Stress Lab and left ambulatory in no apparent distress.
== END 2025-06-18 16:08 ==
LOC: DI 15:50
PROVIDERS: PCP Nurse Practitioner Family; Visit Provider Internal Medicine Cardiovascular Disease
DX: R06.02 Shortness of breath (principal)
CPT/HCPCS: 93017

== ENCOUNTER 2025-06-19 00:56 | Outpatient (CLI) | payer OTHER, SELFPAY ==
[2025-06-19] MEDS: Inhaler, Assist Device 1 EACH MC (12:03)
[2025-06-19] MEDS: Albuterol HFA 18 GM 200 PUFF INH IH (12:03)
[2025-06-19] MEDS: Methacholine 100 MG VIAL IH (12:03)
--- NOTE | 2025-06-22 08:26 | W.PFT ---
Date of service: 06/19/25 Time of Service: 09:58 Pulmonary Function Test Result Indications: Dyspnea on exertion Impression 1. Good patient effort was noted. ATS standards for reproducibility were met. 2. Spirometry showed no obstruction. FVC was reduced at 72% predicted, so cannot rule out underlying restrictive lung disease. 3. At 1 mg/mL of methacholine, there was a 31% fall in FEV1. Conclusion: - positive methacholine challenge testing - reduced FVC suggestive of restriction. Consider lung volume testing / full PFT's if clinically warranted
== END 2025-06-19 00:57 | disposition home or self-care (01) ==
LOC: RT 00:57
PROVIDERS: PCP Nurse Practitioner Family; Visit Provider Internal Medicine Cardiovascular Disease
DX: R06.09 Other forms of dyspnea (principal)
CPT/HCPCS: 94070; 94726; 94729; 95070; J7674

== ENCOUNTER 2025-07-02 02:35 | Outpatient (CLI) | payer OTHER, SELFPAY ==
--- NOTE | 2025-07-02 06:00 | DI.NM_ITS ---
APPROVED REPORT Exam: Pharmacologic Patient Location: Out-Patient Room/Bed: Stress Nurse: Ashley Enrique RN Ordering Provider:ROBLES SOLITARIOCHRISTIANA, Contact Number: [phone] BMI: 49.25 Baseline Rhythm: Sinus Rhythm Indications: Abnormal ETT, breath shortness Medical History Medical History: HLD, HTN, chest pain, CHF, BLE edema, EF 60%, mucus plugging of bronchi, acute hypoxic respiratory failure, asthma Cardiac Medications: Metoprolol succinate, metformin, amlodipine, atorvastatin, farxiga, hydrochlorothiazide, toresemide Allergies: NKA Cardiac Risk Factors: Family hx, HTN, HLD, daibetes, asthma, obesity Previous Cardiac Procedures: None Pretest Chest Pain Characteristics: None Exercise History: Indeterminate Physical Disabilities: None Lung Sounds: Clear to auscultation Heart Sounds: Regular Stress Test Details Test: Pharmacologic stress was paired with low level exercise. Reason for pharmacologic stress test: Unable to hold beta bernadette. Nuclear Acquisition: Rest Tc-99m/Stress Tc-99m 1 day Rest Isotope: Tc-99m Sestamibi. Dose: 14.8 Date: 07/02/2025 Injection Time: 0835 Stress Isotope: Tc-99m Sestamibi. Dose: 45.0 Date: 07/02/2025 Injection Time: 1000 HR Resting HR Supine: 60 bpm Max Heart Rate (APMHR): 162 bpm Resting HR Standin bpm Target HR (85% APMHR): 138 bpm Max HR Achieved: 87 bpm % of APMHR: 54 Recovery HR: 70 bpm BP Resting BP Supine: 140/82 mmHg Resting BP Standin/80 mmHg Max BP: 169/90 mmHg Recovery BP: 140/78 mmHg ECG Resting ECG: Sinus Rhythm, nonspecific ST-T abnormalities Stress ECG: Sinus Rhythm ST Change: Nondiagnostic low heart rate Recovery ECG: Sinus Rhythm, nonspecific ST-T abnormalities Recovery ST Change: Nondiagnostic low heart rate Recovery Arrhythmia: Rare PAC's Clinical Stress Symptoms: Mild SOB Angina Score: None Rate Pressure Product: 84257 Stress ECG Conclusion 1. Resting electrocardiogram showed nondiagnostic ST-T abnormalities 2. Patient underwent testing using pharmacologic stress with regadenoson 3. Peak heart rate achieved was 54% of maximal predicted for age 4. The electrocardiographic portion of the test was nondiagnostic 5. See MPI report Stress Test Summary STAGE HR BP SpO2 Symptoms NOTES Supine 60 140/82 93% Standing 59 136/80 1 min post Lexiscan injection 77 160/90 93% 3 min post Lexiscan injection 73 150/88 95% 6 min post Lexiscan injection 70 140/78 94% Walking monica test performed due to patient unable to hold beta bernadette per MD order. Patient c/o mild SOB. All symptoms resolved at test end. PAtient proceeded to imaging ambulatory in no apparent distress. MPI Conclusion Myocardial perfusion is normal. There is no ischemia or evidence of prior infarction Ejection fraction is 49% with normal wall motion
[2025-07-02] MEDS: Regadenoson 0.4 MG/5 ML SYR IVP (10:11)
== END 2025-07-02 02:55 ==
LOC: DI 02:35
PROVIDERS: PCP Nurse Practitioner Family; Visit Provider Internal Medicine Cardiovascular Disease
DX: R94.39 Abnormal result of other cardiovascular function study (principal); R06.02 Shortness of breath
CPT/HCPCS: 78452; 93017; J2785

== ENCOUNTER 2025-07-02 15:10 | Outpatient (CLI) | payer OTHER, SELFPAY ==
--- NOTE | 2025-07-02 14:48 | W.NUTRFU ---
Date of service: 07/02/25 Time of Service: 01:00 Nutrition Note NOTE: Froy in for very brief vist to put on a CGM as the last one stopped communicating with warehouse receiver for some reason. Froy brought in warehouse receiver and report only had 6/14 days with data (80% active time when we need 90% or greater for accurately assessing). Nonetheless his glucose was very high as he reports living mostly in the 200's. No risk for lows. average glucose per report was 234 and was 61% of the time in the high range (180-250). We put on another sensor and connected it and Froy took home the pairing code in case he needs to attempt to repair them again. He states he is still trying with diet changes and moving more. Will follow up on 07/13 for another review of report and troubleshoot/make recommendations. I feel he will definitely need to consider higher dose of orals, additional GLP-1 and can consider basal insulin if needed to start making more of a dent in his chronic hyperglycemia. Time Spent in Nutritional Counseling and Treatment: 10 min
[2025-07-02 15:06] LABS: Hemoglobin A1C 8.5 % (<5.7)
[2025-07-02 16:38] LABS: Anion Gap 3.7 mmol/L (3-11); BUN 21 mg/dL (7-18); CO2 35.3 mmol/L (21.0-32.0); Calcium 9.2 mg/dL (8.5-10.1); Calculated LDL 84 mg/dL (<100); Chloride 104 mmol/L (98-107); Cholesterol 149 mg/dL (<200); Estimated GFR 87.24 (mL/min/1.73m2); Glucose 221 mg/dL (74-106); HDL Cholesterol 43 mg/dL (>or=40); Potassium 4.2 mmol/L (3.5-5.1); Sodium 143 mmol/L (136-145); Triglyceride 114 mg/dL (<150)
== END 2025-07-02 15:11 | disposition home or self-care (01) ==
LOC: LBO 15:11
PROVIDERS: PCP Nurse Practitioner Family; Visit Provider Nurse Practitioner Family
DX: E11.9 Type 2 diabetes mellitus without complications (principal); E78.00 Pure hypercholesterolemia, unspecified; I10 Essential (primary) hypertension
CPT/HCPCS: 00123; 36415; 80048; 80061; 83036

== ENCOUNTER 2025-07-14 08:22 | Emergency (ER) | payer OTHER, SELFPAY ==
--- NOTE | 2025-07-14 08:15 | RT.EKG_ITS ---
APPROVED REPORT Exam: Resting ECG Reason for Exam: MARQUISE/CP Patient Location: E HR:58 bpm ECG Measurements Heart Rate 58 AXIS NE 154 P 48 QRSd 93 QRS 28 QT 406 T 31 QTc 397 Conclusion Sinus bradycardia...rate< 60 No STEMI
[2025-07-14 08:23] VITALS: BP 141/66; PULSE 58; RESP 16; TEMP 37; O2SAT 95
[2025-07-14 08:35] VITALS: BP 141/66; PULSE 58; RESP 16; TEMP 37; O2SAT 95
--- NOTE | 2025-07-14 08:43 | ED.GENADUL_ITS ---
Discharge Plan Disposition Patient Disposition: Home Condition: Good Discharge Details Clinical Impression: Chest pain, Breath shortness, Asthma Primary Care Provider: Jackie Toussaint ED Provider: Trisha Samaniego Home Meds and New Rx's Prescriptions: Continued lisinopril 20 mg tablet 20 mg PO DAILY Qty: 90 3RF insulin glargine [Lantus Solostar U-100 Insulin] 100 unit/mL (3 mL) insulin pen 5 unit subcut QPM Qty: 3 3RF amlodipine 5 mg tablet 5 mg PO DAILY Qty: 90 3RF (DME) pen needle, diabetic [Easy Comfort Pen [place]] 31 gauge x 5/16 needle See Rx Instructions .Route Qty: 100 3RF Rx Instructions: Inject 5 units of insulin daily. Please fill with whatever the insurance will cover. (DME) Dexcom G7 Sensor Device See Rx Instructions .Route Qty: 9 3RF Rx Instructions: As directed (DME) Dexcom G7 Optometric Coordinator Misc See Rx Instructions .Route Qty: 1 0RF Rx Instructions: As directed torsemide 10 mg tablet 10 mg PO DAILY Qty: 30 2RF atorvastatin 40 mg tablet 40 mg PO DAILY Qty: 90 3RF albuterol sulfate [Ventolin HFA] 90 mcg/actuation HFA aerosol inhaler 2 puff inhalation Q6H PRN (Reason: shortness of breath or wheezing) Qty: 6.7 1RF (DME) blood-glucose meter [FreeStyle Lite Meter] Kit See Rx Instructions .Route Qty: 1 0RF Rx Instructions: Check Blood sugars daily (DME) FreeStyle Lite Strips Strip See Rx Instructions .Route Qty: 100 3RF Rx Instructions: Check blood sugar daily (DME) lancets [FreeStyle Lancets] 28 gauge misc See Rx Instructions .Route Qty: 100 3RF Rx Instructions: Check blood sugar daily budesonide-formoterol [Breyna] 80-4.5 mcg/actuation HFA aerosol inhaler 2 puff inhalation BID Qty: 10.2 3RF metformin 500 mg tablet extended release 24 hr 1,000 mg PO DAILY Qty: 60 3RF metoprolol succinate 100 mg tablet extended release 24 hr 100 mg PO DAILY Discharge Instructions Instructions: Chest Pain, Adult ED, Asthma, Adult ED Additional Instructions: As we discussed, your chest x-ray and labs are reassuring here today. No evidence to suggest an acute issue with your heart. However, I do encourage that you keep your appointment with your nuclear process engineer today. Please continue to encourage hydration follow your asthma management plan. Please follow-up with primary care in 1 to 2 weeks for reevaluation. Please continue with your asthma care plan, I am concerned that this may have been contributing to some of the chest discomfort and encouraged her to discuss your asthma symptoms and chest discomfort with your cardiology, respiratory and primary care teams. If you develop any recurrence of your symptoms or other new/worsening symptoms please seek care urgently once again. Referrals: Jackie Toussaint APRN [Primary Care Provider, [facility]] Discharge Data Discharge Date/Time-TO BE ENTERED AT DEPARTURE: 07/14/25 11:42 HPI General Date/Time Provider Initiated Documentation: 07/14/25 08:23 . Limitations to Documentation: no limitations . Information obtained by: patient, RN notes reviewed and old records reviewed . History of Present Illness 60 year old M presents to the emergency department with the chief complaint of SOB, CP, described as moderate and similar to prior episodes, Quality is described as other (tight), and is localized to the chest. Patient reports no radiation. Patient started experiencing this hour(s) and it has been intermittent and now resolved. No relieving factors improve symptom(s), Other factors that worsen symptoms (worse with asthma from dust exposure) . Patient notes no other symptoms.. Patient did receive the following treatments prior to arrival, other (albuterol) Related Data Home Medications ?Medication ?Instructions ?Recorded ?Confirmed metoprolol succinate 100 mg 100 mg PO DAILY 02/17/25 0 07/14/25 tablet,extended release 24 hr metformin 500 mg tablet,extended 1,000 mg (2 x 500 mg) PO DAILY #60 03/24/25 07/14/25 release 24 hr tabs atorvastatin 40 mg tablet 40 mg PO DAILY cholesterol # 90 tabs 03/31/25 07/14/25 albuterol sulfate 90 mcg/actuation 2 puff inhalation Q 6H PRN 06/10/25 07/14/25 aerosol inhaler (Ventolin HFA) shortness of breath or wheezing #6.7 grams blood sugar diagnostic (FreeStyle #100 ea 06/10/2507/30 Lite Strips) blood-glucose meter (FreeStyle #1 ea 06/10/25 07/03/25 Lite Meter kit) lancets 28 gauge (FreeStyle #100 ea 06/10/25 07/14/25 Lancets) budesonide-formoterol HFA 80 2 puff inhalation BID #10 .2 grams 06/24/25 07/14/25 mcg-4.5 mcg/actuation aerosol inhaler (Breyna) amlodipine 5 mg tablet 5 mg PO DAILY #90 tabs 07/0307/14/25 blood-glucose sensor (Dexcom G7 #9 ea 07/03/25 5 Sensor device) blood-glucose,furnace utility operator,cont #1 ea 07/03/25 07/14/25 (Dexcom G7 Optometric Coordinator) insulin glargine 100 unit/mL (3 5 unit (0.05 mL) subcu t QPM 07/03/25 07/14/25 mL) subcutaneous pen (Lantus diabetes #3 mL Solostar U-100 Insulin) lisinopril 20 mg tablet 20 mg PO DAILY blood pressur e #90 07/03/25 07/14/25 tabs pen needle, diabetic 31 gauge x #100 ea 07/03/2507/14 5/16 (Easy Comfort Pen [place]) torsemide 10 mg tablet 10 mg PO DAILY #30 tabs 01/2707/14/25 Previous Rx's ?Medication ?Instructions ?Recorded metformin 500 mg tablet,extended 1,000 mg (2 x 500 mg) PO DAILY #60 03/24/25 release 24 hr tabs atorvastatin 40 mg tablet 40 mg PO DAILY cholesterol # 90 tabs 03/31/25 albuterol sulfate 90 mcg/actuation 2 puff inhalation Q 6H PRN 06/10/25 aerosol inhaler (Ventolin HFA) shortness of breath or wheezing #6.7 grams blood sugar diagnostic (FreeStyle #100 ea 06/10/25 Lite Strips) blood-glucose meter (FreeStyle #1 ea 06/10/25 Lite Meter kit) lancets 28 gauge (FreeStyle #100 ea 06/10/25 Lancets) budesonide-formoterol HFA 80 2 puff inhalation BID #10 .2 grams 06/24/25 mcg-4.5 mcg/actuation aerosol inhaler (Breyna) amlodipine 5 mg tablet 5 mg PO DAILY #90 tabs 07/03 blood-glucose sensor (Dexcom G7 #9 ea 07/03/25 Sensor device) blood-glucose,furnace utility operator,cont #1 ea 07/03/25 (Dexcom G7 Optometric Coordinator) insulin glargine 100 unit/mL (3 5 unit (0.05 mL) subcu t QPM 07/03/25 mL) subcutaneous pen (Lantus diabetes #3 mL Solostar U-100 Insulin) lisinopril 20 mg tablet 20 mg PO DAILY blood pressur e #90 07/03/25 tabs pen needle, diabetic 31 gauge x #100 ea 07/03/2503/20 (Easy Comfort Pen [place]) torsemide 10 mg tablet 10 mg PO DAILY #30 tabs 01/27 Allergies Allergy/AdvReac Type Severity Reaction Status Date / Time No Known Allergies Allergy Verified 07/14/25 13:55 General Stated Complaint: SOB SAILAJA: 3 Review of Systems Constitutional Constitutional: Reports as per HPI, Denies fever(s), Denies headache(s) and Jorge es poor appetite Eyes Eyes: Denies change in vision ENT Ears, Nose, Mouth, and Throat: Denies dizziness and Denies headache(s) Cardiovascular Cardiovascular: Reports as per HPI and Denies dyspnea on exertion Respiratory Respiratory: Reports as per HPI, Denies chest congestion, Denies cough, Denies pain on inspiration, Denies pain with cough and Denies dyspnea on exertion Gastrointestinal Gastrointestinal: Reports as per HPI, Denies abdominal pain, Denies diarrhea, Denies nausea and Denies vomiting Genitourinary Genitourinary: Denies system reviewed and no additional complaints, except as documented (denies change in urinary habits) Musculoskeletal Musculoskeletal: Reports as per HPI and Denies back pain Integumentary/Breasts Skin/Breast: Reports as per HPI and Denies rash Neurologic Neurologic: Reports as per HPI, Denies dizziness and Denies headache(s) Exam Const General: cooperative, healthy appearing, comfortable, no acute distress and well developed Nutritional Appearance: well nourished and overweight Orientation: alert, awake and oriented x3 Chest Chest: normal inspection of the chest, normal palpation of entire chest wall and no crepitus Resp Effort & Inspection: normal respiratory effort, able to speak in complete sentences and no respiratory distress Auscultation: clear to auscultation bilaterally, no rales, no rhonchi and no wheezes Cardio Rate: regular rate Rhythm: regular rhythm Heart Sounds: S1 normal and S2 normal Skin General skin exam: no rashes or lesions noted Trauma: no lacerations or abrasions Neuro General: patient alert, patient awake and patient oriented x3 Cognition: normal cognition Speech: speech normal Gait: normal gait Extrem General: normal to inspection, capillary refill normal, no pedal edema, no calf tenderness and normal gait Course Vital Signs Vital signs: Vital Signs Temperature 37.0 C 07/14/25 08:23 Pulse 58 L 07/14/25 08:23 Respiratory Rate 16 07/14/25 08:23 Blood Pressure 141/66 H 07/14/25 08:23 Pulse Oximetry 95 07/14/25 08:23 Temperature 37.0 C 07/14/25 08:35 Temperature Source Oral 07/14/25 08:35 Pulse 58 L 07/14/25 08:35 Respiratory Rate 16 07/14/25 08:35 Blood Pressure 141/66 H 07/14/25 08:35 Blood Pressure Position Sitting 07/14/25 08:35 Pulse Oximetry 95 07/14/25 08:35 Oxygen Delivery Method Room Air 07/14/25 08:35 Oxygen Flow Rate 0 07/14/25 08:35 Pain Level 0 07/14/25 08:35 Medical Decision Making Patient is a pleasant 60-year-old gentleman past medical history significant for CHF, asthma, hyperlipidemia, obesity, diabetes, hypertension, presented with chief complaint of worsening asthma. He reports over the past 2 days he has been having asthma exacerbations while at work, he associates this with having reduced airflow and having more dust exposure. He does not wear mask and reports that the 1 that they have available make him more short of breath. He states that he came in today because he has had some chest discomfort this morning which he associates with feeling short of breath. He denies any shortness of breath or chest discomfort at this point. He did use his inhaler about an hour and a half prior to arrival and does not have any continued shortness of breath. He has used his new inhaler this morning. Patient does continue to be on a beta-bernadette which he did take this morning. On exam, patient appears nontoxic. He is resting comfortably no acute distress. He is hemodynamically stable. Extremities. Improved from when I saw him last time and he had more notable lower extremity edema. This does seem to be resolving and patient reports that he is now able to walk more without increased shortness of breath. The diuretic does seem to be working well for him. He has no calf pain and 2+ distal pulses. His lungs are clear in all brown, no wheezes noted at this point, no respiratory distress. His oxygen is maintained on room air. Normal cardiac exam. No abdominal tenderness. Patient denies any recent illness. No cough, fevers, chills. Patient did undergo a CT at his last evaluation here. His history and exam are not consistent with a dissection or aneurysm, none of these were seen on his most recent imaging. ECG was obtained and reviewed by Dr. Cleary, patient does have sinus bradycardia, notes present given his beta-blockers, no acute ischemic changes. Patient did have a nuc med scan recently which showed normal myocardial perfusion, no ischemia or evidence of prior infarction with an EF of 49, normal wall motion. Patient does have an appointment with cardiology this afternoon for follow-up. Certainly, given the patient's history, I considered asthma exacerbation although this does seem to be improving based on the patient's symptoms. Also considered ACS although of the normal nuc med scan last week, less likely, especially as his chest discomfort did not sound to be exertional in nature, more associated with his asthma which was exacerbated by dust at work. Will obtain a chest x-ray, baseline labs and continue to monitor. X-ray reviewed by myself and radiologist no acute abnormalities noted. Labs without any significant abnormality. Glucose is elevated but this is baseline for the patient. Troponin x 2 within normal limits without significant elevation. BNP within normal limits. I discussed these findings with the patient. He has not had recurrence of his symptoms. I advised that his chest discomfort he was experiencing when he was having the wheezing and asthma symptoms was likely associated with the asthma but we do not see evidence to suggest ACS at this time. He does have a follow- up appointment with his nuclear process engineer this afternoon. As the asthma seems to be the predominant issue for the patient recently, I did encourage him to discuss this further with his cardiac team as well as he is currently beta blocked and I am unclear how much of this may be contributing to some of his asthma symptoms. Return precautions were discussed. All his questions and concerns were addressed and he is in agreement this plan. Dictation completed using Dragon dictation software. Please excuse any errors or console manager anomalies that may remain. PFSH All Active Problems (Updated 07/14/25 @ 14:14 by Cara Ron MD) Respiratory insufficiency (Acute) Asthma (Chronic) Breath shortness (Acute) Chest pain (Acute) KRYSTIN (obstructive sleep apnea) (Chronic) Obesity hypoventilation syndrome (Acute) Moderate persistent asthma (Acute) Chronic hypercapnia (Acute) Acute hypoxic respiratory failure (Acute) Hypertensive urgency (Acute) Preventative health care (Acute) Medical History Abnormal stress test Right hand pain Follow-up exam CHF exacerbation Rash Hyperlipidemia Diabetes HTN (hypertension) Surgical History History of ureteroscopy S/P tendon repair Hx of colonoscopy Hx of hand surgery Social History Smoking/Tobacco Use Status: Never Smoking risk assessment performed?: Yes Alcohol Intake: current Alcohol Intake frequency: holidays/special occasions only Drug use: Rarely Substance use type: marijuana Details: denies use for couple of months. Housing: house Do you feel safe at home: Yes Do you feel safe in your relationship?: Yes
[2025-07-14 08:52] LABS: Abs Immature Grans 0.02 10^3/uL (0.0-0.06); HCT 44.7 % (40.0-50.0); HGB 14.8 g/dL (13.5-17.5); Immature Grans % 0.3 %; MCH 28.9 pg (27.0-33.0); MCHC 33.1 % (32.0-36.0); MCV 87 fL (80-95); MPV 9.3 fL (8.0-11.0); Platelet Count 228 10^3/uL (130-400); RBC 5.12 10^6/uL (4.36-5.78); RDW 12.1 % (11.8-14.1); RDW-SD 38.8 fL; WBC 7.18 10^3/uL (4.4-10.8)
[2025-07-14 08:54] VITALS: PULSE 54; RESP 13
[2025-07-14 09:19] LABS: ALT 23 U/L (16-63); AST 16 U/L (15-37); Albumin 3.5 g/dL (3.4-5.0); Alkaline Phosphatase 99 U/L (46-116); Anion Gap 5.6 mmol/L (3-11); BUN 16 mg/dL (7-18); Bilirubin, Total 0.5 mg/dL (0.2-1.0); CO2 34.4 mmol/L (21.0-32.0); Calcium 9.1 mg/dL (8.5-10.1); Chloride 101 mmol/L (98-107); Estimated GFR 98.38 (mL/min/1.73m2); Glucose 196 mg/dL (74-106); Magnesium 1.9 mg/dL (1.8-2.4); NT-proBNP 114 pg/mL (<300); Potassium 4.1 mmol/L (3.5-5.1); Sodium 141 mmol/L (136-145); Total Protein 7.2 g/dL (6.4-8.2); Troponin I 8 ng/L (<or=76)
--- NOTE | 2025-07-14 09:36 | DI.RAD_ITS ---
Exam(s) XR CHEST 2V PA LATERAL EXAM: XR CHEST 2V PA LATERAL CLINICAL HISTORY: SOB. TECHNIQUE: 2D digital imaging was performed. COMPARISON: CR XR CHEST 2V PA LATERAL from 06/08/2025 FINDINGS: 2 views: Heart size is normal. The mediastinum is not widened. Right lung is clear. There are mildly increased markings in left lower lobe retrocardiac region. These may just be vascular markings. There is no infiltrate seen at this level on the lateral view. No pleural effusions IMPRESSION: No acute pulmonary findings. DATA REPOSITORY: RADIATION DOSE DELIVERED:
[2025-07-14] MEDS: Aspirin 81 MG CHEW 324 MG CH (09:40)
[2025-07-14 10:42] LABS: Troponin I 8 ng/L (<or=76)
[2025-07-14 11:39] VITALS: BP 144/84; PULSE 52; RESP 16; TEMP 36.6; O2SAT 96
== END 2025-07-14 11:42 | disposition home or self-care (01) ==
PROVIDERS: Emergency Provider Physician Assistant; PCP Nurse Practitioner Family
DX: R07.9 Chest pain, unspecified (principal); R06.02 Shortness of breath; J45.909 Unspecified asthma, uncomplicated
CPT/HCPCS: 99285; 99284; 36415; 80053; 93005; 71046; 83735; 83880; 84484; 85025; 93010

== ENCOUNTER 2025-07-14 09:29 | Outpatient (CLI) | payer OTHER, SELFPAY | END 2025-07-14 09:30 | disposition home or self-care (01) | LOC: DI.CARD 09:30 | PROVIDERS: PCP Nurse Practitioner Family; Visit Provider Internal Medicine Cardiovascular Disease | CPT/HCPCS: 93010 ==

== ENCOUNTER 2025-07-30 16:08 | Outpatient (CLI) | payer OTHER, SELFPAY ==
[2025-07-30 17:02] LABS: Anion Gap 4.2 mmol/L (3-11); BUN 20 mg/dL (7-18); CO2 34.8 mmol/L (21.0-32.0); Calcium 9.3 mg/dL (8.5-10.1); Chloride 102 mmol/L (98-107); Estimated GFR 101.95 (mL/min/1.73m2); Glucose 226 mg/dL (74-106); Potassium 4.8 mmol/L (3.5-5.1); Sodium 141 mmol/L (136-145)
== END 2025-07-30 16:09 | disposition home or self-care (01) ==
LOC: LBO 16:09
PROVIDERS: PCP Nurse Practitioner Family; Visit Provider Nurse Practitioner Family
DX: I10 Essential (primary) hypertension (principal)
CPT/HCPCS: 36415; 80048

== ENCOUNTER 2025-09-23 12:00 | Outpatient (CLI) | payer OTHER, SELFPAY ==
[2025-09-23 13:36] LABS: Anion Gap 7 mmol/L (3-11); BUN 17 mg/dL (9-23); CO2 32.0 mmol/L (20.0-31.0); Calcium 9.0 mg/dL (8.3-10.6); Chloride 102 mmol/L (98-107); Glucose 204 mg/dL (74-106); Potassium 4.5 mmol/L (3.5-5.1); Sodium 141 mmol/L (136-145)
== END 2025-09-23 12:01 | disposition home or self-care (01) ==
LOC: LBO 12:01
PROVIDERS: PCP Nurse Practitioner Family; Visit Provider Nurse Practitioner Family
DX: I10 Essential (primary) hypertension (principal)
CPT/HCPCS: 36415; 80048

== ENCOUNTER 2025-10-02 15:02 | Outpatient (CLI) | payer OTHER, SELFPAY ==
[2025-10-02 15:39] LABS: BE 8 mmol/L (-2-3); HCO3 33 mmol/L (22-26)
[2025-10-02 15:40] LABS: FIO2 21 %; FIO2L 0 L
== END 2025-10-02 15:03 | disposition home or self-care (01) ==
LOC: RT 15:02
PROVIDERS: PCP Nurse Practitioner Family; Visit Provider Physician Assistant Surgical
DX: E66.2 Morbid (severe) obesity with alveolar hypoventilation (principal)
CPT/HCPCS: 82805; 36600

== ENCOUNTER 2025-10-02 20:08 | Emergency (ER) | payer OTHER, SELFPAY ==
[2025-10-02 20:10] VITALS: BP 194/109; PULSE 68; RESP 18; TEMP 36.9; O2SAT 98
--- NOTE | 2025-10-02 20:13 | W.ED.GENAD ---
Discharge Plan Disposition Patient Disposition: Home Discharge Details Clinical Impression: Chalazion of right upper eyelid Primary Care Provider: Jackie Toussaint ED Provider: Jacobo Cleary Home Meds and New Rx's Prescriptions: New erythromycin 5 mg/gram (0.5 %) ointment 1 applic ophthalmic (eye) Q6H Qty: 3.5 0RF No Action amlodipine 5 mg tablet 5 mg PO DAILY Qty: 90 3RF (DME) pen needle, diabetic [Easy Comfort Pen [place]] 31 gauge x 5/16 needle See Rx Instructions .Route Qty: 100 3RF Rx Instructions: Inject 5 units of insulin daily. Please fill with whatever the insurance will cover. (DME) Dexcom G7 Sensor Device See Rx Instructions .Route Qty: 9 3RF Rx Instructions: As directed (DME) Dexcom G7 Cashier Assistant Misc See Rx Instructions .Route Qty: 1 0RF Rx Instructions: As directed torsemide 10 mg tablet 10 mg PO DAILY Qty: 30 2RF Spiriva Respimat 1.25 mcg/actuation mist 2 puff inhalation DAILY Qty: 4 3RF lisinopril 40 mg tablet 40 mg PO DAILY Qty: 90 3RF insulin glargine [Lantus Solostar U-100 Insulin] 100 unit/mL (3 mL) insulin pen 28 unit subcut QPM Qty: 3 3RF Ozempic 0.25 mg or 0.5 mg (2 mg/3 mL) pen injector 0.5 mg subcut QWEEK Qty: 3 2RF Rx Instructions: for 4 weeks atorvastatin 40 mg tablet 40 mg PO DAILY Qty: 90 3RF (DME) blood-glucose meter [FreeStyle Lite Meter] Kit See Rx Instructions .Route Qty: 1 0RF Rx Instructions: Check Blood sugars daily (DME) FreeStyle Lite Strips Strip See Rx Instructions .Route Qty: 100 3RF Rx Instructions: Check blood sugar daily (DME) lancets [FreeStyle Lancets] 28 gauge misc See Rx Instructions .Route Qty: 100 3RF Rx Instructions: Check blood sugar daily fluticasone propion-salmeterol [Advair HFA] 230-21 mcg/actuation HFA aerosol inhaler 2 puff inhalation BID Qty: 12 12RF Rx Instructions: administer with spacer metformin 500 mg tablet extended release 24 hr 1,000 mg PO DAILY Qty: 60 3RF budesonide-formoterol [Breyna] 160-4.5 mcg/actuation HFA aerosol inhaler 2 puff inhalation BID Qty: 10.2 3RF albuterol sulfate [Ventolin HFA] 90 mcg/actuation HFA aerosol inhaler 2 puff inhalation Q6H PRN (Reason: shortness of breath or wheezing) Qty: 6.7 1RF metoprolol succinate 100 mg tablet extended release 24 hr 100 mg PO DAILY Discharge Instructions Instructions: Chalazion Additional Instructions: As discussed, I suspect your symptoms are secondary ablatively visit to [email or web address] M in the inner surface of your right upper eyelid. Please use warm compresses at home to help expedite your recovery, as well as the prescribed erythromycin ointment, and Tylenol. Please return to the emergency department you develop worsening symptoms such as pain, visual changes, fever, rash or any other new or concerning symptoms. During your emergency department valuation today, you were noted to have elevated blood pressure readings. Chronically high blood pressure or hypertension, cannot be diagnosed in 1 visit to the emergency department. However, it is highly recommended that you follow-up with your primary care to determine if your blood pressures are elevated chronically, as it is highly recommended to start medication to reduce blood pressure as this has been shown to have significant impact in long-term morbidity and mortality for all patients. Stand Alone Forms: Portal Information HPI General Date/Time Provider Initiated Documentation: 10/02/25 20:11. HPI Narrative: MDM/Narrative: 60-year-old male presents for right eye discomfort x 3 days. Fluorescein exam unremarkable, visual acuity intact. Exam notable for chalazion of the right upper eyelid. Will discharge patient with prescription for erythromycin topical ointment, instructions use Tylenol and compresses and return to emergency department for new or worsening symptoms including fever, acute visual changes or worsening pain. Clinical impression: Chalazion Disposition: Home HPI: 60-year-old male who does not wear contact lenses presents for evaluation discomfort in his right eye x 3 days. Patient states he feels like there is something in his eye although is not painful, has not been attempting to wash his eye with tap water several times without improvement. Has been using some Visine drops which improved his symptoms temporarily but they have been returning for evaluation. Denies any change in vision, fever, trauma, discharge from the eye or any other new or concerning symptoms. ROS: Negative besides as mentioned above Exam: Gen: A&O NAD HEENT: NCAT, EOMI, not icteric. External ears normal. No rhinorrhea. Moist mucous membranes. No chemosis, no fluorescein uptake on exam, no Sidel sign. There is a chalazion of the inner surface of the right upper eyelid. Neck: Supple, full range of motion, no observable masses, No meningeal sign. Lungs: No Respiratory distress. CV: RRR, no edema. Abdomen: Soft, nondistended, No rebound tenderness. MSK: No joint swelling, no redness. Skin: No rashes, petechiae, lesions. Normal color per patient. Neuro: Normal Gait, Grossly intact. Psych: Appropriate for situation. Related Data Home Medications ?Medication ?Instructions ?Recorded ?Confirmed metoprolol succinate 100 mg 100 mg PO DAILY 02/17/25 09/29/25 tablet,extended release 24 hr metformin 500 mg tablet,extended 1,000 mg (2 x 500 mg) PO DAILY #60 03/24/25 09/29/25 release 24 hr tabs atorvastatin 40 mg tablet 40 mg PO DAILY cholesterol #90 tabs 03/31/25 09/29/25 blood sugar diagnostic (FreeStyle #100 ea 06/10/25 09/29/25 Lite Strips) blood-glucose meter (FreeStyle #1 ea 06/10/25 09/29/25 Lite Meter kit) lancets 28 gauge (FreeStyle #100 ea 06/10/25 09/29/25 Lancets) amlodipine 5 mg tablet 5 mg PO DAILY #90 tabs 07/03/25 09/29/25 blood-glucose sensor (Dexcom G7 #9 ea 07/03/25 09/29/25 Sensor device) blood-glucose,hospital personnel director,cont #1 ea 07/03/25 09/29/25 (Dexcom G7 Cashier Assistant) pen needle, diabetic 31 gauge x #100 ea 07/03/25 09/29/25 5/16 (Easy Comfort Pen [place]) torsemide 10 mg tablet 10 mg PO DAILY #30 tabs 07/08/25 09/29/25 budesonide-formoterol HFA 160 2 puff inhalation BID #10.2 grams 07/24/25 09/29/25 mcg-4.5 mcg/actuation aerosol inhaler (Breyna) lisinopril 40 mg tablet 40 mg PO DAILY blood pressure #90 07/31/25 09/29/25 tabs tiotropium bromide 1.25 2 puff inhalation DAILY #4 grams 08/26/25 09/29/25 mcg/actuation mist for inhalation (Spiriva Respimat) insulin glargine 100 unit/mL (3 28 unit (0.28 mL) subcut QPM 09/02/25 09/29/25 mL) subcutaneous pen (Lantus diabetes #3 mL Solostar U-100 Insulin) albuterol sulfate 90 mcg/actuation 2 puff inhalation Q6H PRN 09/15/25 09/29/25 aerosol inhaler (Ventolin HFA) shortness of breath or wheezing #6.7 grams semaglutide 0.25 mg or 0.5 mg (2 0.5 mg (0.736 mL) subcut QWEEK 09/29/25 09/29/25 mg/3 mL) subcutaneous pen injector diabetes #3 mL (Ozempic) fluticasone propionate 230 2 puff inhalation BID #12 grams 09/30/25 09/30/25 mcg-salmeterol 21 mcg/actuation HFA inhaler (Advair HFA) erythromycin 5 mg/gram (0.5 %) eye 1 applic ophthalmic (eye) Q6H #3.5 10/02/25 ointment grams Previous Rx's ?Medication ?Instructions ?Recorded metformin 500 mg tablet,extended 1,000 mg (2 x 500 mg) PO DAILY #60 03/24/25 release 24 hr tabs atorvastatin 40 mg tablet 40 mg PO DAILY cholesterol #90 tabs 03/31/25 blood sugar diagnostic (FreeStyle #100 ea 06/10/25 Lite Strips) blood-glucose meter (FreeStyle #1 ea 06/10/25 Lite Meter kit) lancets 28 gauge (FreeStyle #100 ea 06/10/25 Lancets) amlodipine 5 mg tablet 5 mg PO DAILY #90 tabs 07/03/25 blood-glucose sensor (Dexcom G7 #9 ea 07/03/25 Sensor device) blood-glucose,hospital personnel director,cont #1 ea 07/03/25 (Dexcom G7 Cashier Assistant) pen needle, diabetic 31 gauge x #100 ea 07/03/25 5/16 (Easy Comfort Pen [place]) torsemide 10 mg tablet 10 mg PO DAILY #30 tabs 07/08/25 budesonide-formoterol HFA 160 2 puff inhalation BID #10.2 grams 07/24/25 mcg-4.5 mcg/actuation aerosol inhaler (Breyna) lisinopril 40 mg tablet 40 mg PO DAILY blood pressure #90 07/31/25 tabs tiotropium bromide 1.25 2 puff inhalation DAILY #4 grams 08/26/25 mcg/actuation mist for inhalation (Spiriva Respimat) insulin glargine 100 unit/mL (3 28 unit (0.28 mL) subcut QPM 09/02/25 mL) subcutaneous pen (Lantus diabetes #3 mL Solostar U-100 Insulin) albuterol sulfate 90 mcg/actuation 2 puff inhalation Q6H PRN 09/15/25 aerosol inhaler (Ventolin HFA) shortness of breath or wheezing #6.7 grams semaglutide 0.25 mg or 0.5 mg (2 0.5 mg (0.736 mL) subcut QWEEK 09/29/25 mg/3 mL) subcutaneous pen injector diabetes #3 mL (Ozempic) fluticasone propionate 230 2 puff inhalation BID #12 grams 09/30/25 mcg-salmeterol 21 mcg/actuation HFA inhaler (Advair HFA) erythromycin 5 mg/gram (0.5 %) eye 1 applic ophthalmic (eye) Q6H #3.5 10/02/25 ointment grams Allergies Allergy/AdvReac Type Severity Reaction Status Date / Time No Known Allergies Allergy Verified 09/30/25 14:08 General Stated Complaint: EyeProblem SAILAJA: 4 Course Vital Signs Vital signs: Vital Signs Temperature 36.9 C 10/02/25 20:10 Pulse 68 10/02/25 20:10 Respiratory Rate 18 10/02/25 20:10 Blood Pressure 194/109 H 10/02/25 20:10 Pulse Oximetry 98 10/02/25 20:10 Temperature 36.9 C 10/02/25 20:10 Pulse 68 10/02/25 20:10 Respiratory Rate 18 10/02/25 20:10 Blood Pressure 194/109 H 10/02/25 20:10 Pulse Oximetry 98 10/02/25 20:10 Pain Level 3 10/02/25 20:10 PFSH All Active Problems (Updated 10/02/25 @ 20:29 by Jacobo Cleary MD) Chalazion of right upper eyelid (Acute) On home oxygen therapy (Acute) for physical exertion Hypoxia (Acute) Diabetes type 2 (Acute) Respiratory insufficiency (Acute) KRYSTIN (obstructive sleep apnea) (Chronic) Obesity hypoventilation syndrome (Acute) Moderate persistent asthma (Acute) Chronic hypercapnia (Acute) Acute hypoxic respiratory failure (Acute) Hypertensive urgency (Acute) Preventative health care (Acute) Medical History (Updated 10/02/25 @ 20:29 by Jacobo Cleary MD) Abnormal stress test Right hand pain Follow-up exam CHF exacerbation Rash Hyperlipidemia Diabetes HTN (hypertension) Surgical History History of ureteroscopy S/P tendon repair Hx of colonoscopy Hx of hand surgery Social History Smoking/Tobacco Use Status: Never Smoking risk assessment performed?: Yes Alcohol Intake: current Alcohol Intake frequency: holidays/special occasions only Drug use: Rarely Substance use type: marijuana Details: denies use for couple of months. Housing: house Do you feel safe at home: Yes Do you feel safe in your relationship?: Yes
[2025-10-02] MEDS: Tetracaine 0.5% 4 ML BTL OP (20:26)
[2025-10-02] MEDS: Fluorescein STRIPS 100/BOX 1 MG OP (20:26)
[2025-10-02] MEDS: Erythromycin Ophth Oint 3.5 GM TUBE OD (20:36)
[2025-10-02 20:41] VITALS: BP 180/86; PULSE 69; RESP 18; O2SAT 93
== END 2025-10-02 20:43 | disposition home or self-care (01) ==
PROVIDERS: Emergency Provider General Practice; PCP Nurse Practitioner Family
DX: H00.11 Chalazion right upper eyelid (principal)
CPT/HCPCS: 99283